=== PATIENT | female | born 2000 | race African-American/Black ===

== ENCOUNTER 2022-06-26 11:01 | Emergency (ER) | payer SELFPAY ==
[2022-06-26 11:50] LABS: Urine Blood Trace-intact (Negative); Urine Glucose Trace (Negative); Urine Protein Negative (Negative); Urine Specific Gravity >=1.030 (1.005-1.030)
--- NOTE | 2022-06-26 13:42 | RAD REPORT ---
EXAM DESCRIPTION: US - 1St Trimest Single 1St Fetus - 06/26/2022 1:25 pm CLINICAL HISTORY: lower abdomen pain Pelvic pain COMPARISON: No comparisons FINDINGS: A single gestational sac is seen within the uterus. The shape of the sac is within normal limits for gestational age. Within the sac is a single pole with crown-rump length of 8.5 cm, c orrelating to estimated gestational age of 13 weeks 6 days. Estimated date of delivery is 12/26/2022. Heart rate is 151. Anterior placenta. The maternal adnexa are within normal limits. Ovaries obscured by bowel gas. IMPRESSION: Single live early intrauterine gestation with estimated gestational age of 13 weeks 6 da ys, IWONA 12/26/2022. No unusual or unexpected finding.
[2022-06-26 14:04] LABS: Absolute Lymphocytes (CBC) 2.4 K/uL (0.7-4.9); Hematocrit 38.3 % (36.0-45.0); Lymphocytes % 24.9 % (15.3-44.8); MCV 84.2 fL (80-100); MPV 7.8 fL (7.6-11.3); RBC Red Blood Cell Count 4.55 M/uL (3.86-4.86)
[2022-06-26 14:11] LABS: Urine Mucus 1+ /HPF (None Seen); Urine RBC <5 /HPF (None Seen)
[2022-06-26 14:29] LABS: Potassium 3.6 mmol/L (3.5-5.1)
--- NOTE | 2022-06-26 14:43 | EDPHYS ---
Physician Documentation [facility] Name: Maria G Broussard Age: 21 yrs Sex: Female : 2000 Arrival Date: 06/26/2022 Time: 11:05 Bed 24 Private MD: PONCHO Physician Sukumar Kline HPI: 06/26 12:00 This 21 yrs old Black Female presents to ER via Ambulatory with complaints of Abdominal cp Pain, Unknown Weeks . 12:00 The patient presents with abdominal pain in the lower abdomen. The symptoms do not cp radiate. Associated signs and symptoms: Pertinent positives: vaginal discharge, vaginal pain, Pertinent negatives: dysuria, fever, vaginal bleeding. The symptoms are described as crampy. 12:00 Patient reports taking home test over the past weekend that was positive. cp Unsure how far along. Patient is . Unsure of LMP. Denies vaginal bleeding but reports lower abdomen, vaginal pain and brownish discharge. 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 - Social history:: Smoking status: Patient denies any tobacco usage or history of. Patient uses alcohol, occasionally. ROS: 12:05 Constitutional: Negative for body aches, chills, fever, poor PO intake. cp 12:05 Eyes: Negative for injury, pain, redness, and discharge. cp 12:05 ENT: Negative for drainage from ear(s), ear pain, sore throat, difficulty swallowing, difficulty handling secretions. 12:05 Cardiovascular: Negative for chest pain, edema, palpitations. 12:05 Respiratory: Negative for cough, shortness of breath, wheezing. 12:05 Abdomen/GI: Positive for abdominal pain, nausea, of the suprapubic area, Negative for vomiting, diarrhea, constipation. 12:05 Back: Negative for pain at rest, pain with movement. 12:05 : Positive for vaginal discharge, Negative for urinary symptoms, flank pain, vaginal bleeding. 12:05 All other systems are negative. Exam: 12:10 Constitutional: The patient appears in no acute distress, alert, awake, non-toxic, well cp developed, well nourished. 12:10 Head/Face: Normocephalic, atraumatic. cp 12:10 Eyes: Periorbital structures: appear normal, Conjunctiva: normal, no exudate, no cp injection, Sclera: no appreciated abnormality, Lids and lashes: appear normal, bilaterally. 12:10 ENT: External ear(s): are unremarkable, Nose: is normal, Mouth: Lips: moist, Oral cp mucosa: moist, Posterior pharynx: Airway: no evidence of obstruction, patent. 12:10 Chest/axilla: Inspection: normal. 12:10 Cardiovascular: Rate: tachycardic, Rhythm: regular, Edema: is not appreciated, JVD: is not appreciated. 12:10 Respiratory: the patient does not display signs of respiratory distress, Respirations: normal, no use of accessory muscles, no retractions, labored breathing, is not present, Breath sounds: are clear throughout, no decreased breath sounds, no stridor, no wheezing. 12:10 Abdomen/GI: Inspection: abdomen appears normal, Bowel sounds: active, all quadrants, Palpation: soft, in all quadrants, mild abdominal tenderness, in the suprapubic area and left lower quadrant, rebound tenderness, is not appreciated, voluntary guarding, is not appreciated, involuntary guarding, is not appreciated. 12:10 Back: pain, is absent, CVA tenderness, is absent. 14:41 : Pelvic Exam: The exam is refused by the patient/guardian. The risks and cp consequences are understood by the patient. Vital Signs: 11:31 BP 149 / 89; Pulse 103; Resp 18; Temp 98.4(TE); Pulse Ox 100% on R/A; Weight 72.57 kg tw2 (R); Height 5 ft. 3 in. (160.02 cm); Pain 8/10; 14:50 BP 116 / 72; Pulse 85; Resp 17; Pulse Ox 100% ; ll1 11:31 Body Mass Index 28.34 (72.57 kg, 160.02 cm) tw2 MDM: 13:00 Differential diagnosis: Ectopic , non-specific abd pain, Pelvic Inflammatory cp Disease, Pyelonephritis, Ureterolithiasis, urinary tract infection. 13:29 Patient medically screened. 14:42 Data reviewed: vital signs, nurses notes, lab test result(s), radiologic studies, cp ultrasound. 14:42 Counseling: I had a detailed discussion with the patient and/or guardian regarding: the cp historical points, exam findings, and any diagnostic results supporting the discharge/admit diagnosis, lab results, radiology results, the need for outpatient follow up, for definitive care, an OB/Gyne specialist, to return to the emergency department if symptoms worsen or persist or if there are any questions or concerns that arise at home. Response to treatment: the patient's symptoms have mildly improved after treatment, and as a result, I will discharge patient. Special discussion: Based on the patient's Hx, exam, and Dx evaluation, there is no indication for emergent surgery or inpatient Tx. It is understood by the patient/guardian that if the Sx's persist or worsen they need to return immediately for re-evaluation. 06/26 11:40 Order name: Urine Microscopic Only; Complete Time: 14:28 06/26 14:28 Interpretation: Reviewed. 06/26 11:51 Order name: Urine Dipstick-Ancillary; Complete Time: 12:52 EDMS 06/26 12:52 Interpretation: Normal except: UKET Trace; UBLD Trace-intact. 06/26 12:51 Order name: Abo/rh Typing; Complete Time: 14:32 06/26 14:37 Interpretation: Reviewed. 06/26 12:51 Order name: Basic Metabolic Panel; Complete Time: 14:32 06/26 14:32 Interpretation: Normal except: BUN 4. 06/26 12:51 Order name: CBC with Diff; Complete Time: 14:28 06/26 14:28 Interpretation: Reviewed. 06/26 12:51 Order name: Quantitative Hcg; Complete Time: 14:32 06/26 11:40 Order name: Urine Dipstick-Ancillary (obtain specimen); Complete Time: 13:27 06/26 11:40 Order name: Urine Test (obtain specimen); Complete Time: 13:27 06/26 12:51 Order name: IV Saline Lock; Complete Time: 13:27 06/26 12:51 Order name: Labs collected and sent; Complete Time: 13:27 06/26 13:25 Order name: 1St Trimest Single 1St Fetus; Complete Time: 13:52 EDMS 06/26 13:53 Interpretation: Report reviewed. cp 06/26 13:34 Order name: Urine --Ancillary (enter results); Complete Time: 13:52 eb 06/26 13:52 Interpretation: Reviewed. cp 06/26 14:39 Order name: ABO/RH no charge EDMS 06/26 12:51 Order name: NPO; Complete Time: 13:27 cp Administered Medications: No medications were administered Disposition Summary: 06/26/22 14:42 Discharge Ordered Location: Home cp Problem: new cp Symptoms: have improved cp Condition: Stable cp Diagnosis - Other specified related conditions, first trimester cp - Lower abdominal pain, unspecified cp Followup: cp - With: Jean Ramírez MD - When: 2 - 3 days - Reason: Recheck today's complaints Discharge Instructions: - Discharge Summary Sheet cp - Abdominal Pain During cp - Care cp - First Trimester of cp Forms: - Work release form sara - Medication Reconciliation Form cp - Thank You Letter cp - Antibiotic Education cp - Prescription Opioid Use cp Prescriptions: - prenat.vits,shilpa,[id number] Oral tablet - take 1 tablet by ORAL route once daily; 30 tablet; Refills: 0, Product cp Selection Permitted Signatures: Dispatcher [employer] EDMA Sukumar Lea PA PA cp Wise, Tara, RN RN tw2 Corrections: (The following items were deleted from the chart) 13:25 12:52 Transvaginal Ob+US.RAD.BRZ ordered. EDMA EDMA 06/27 02:33 06/26 12:00 Associated signs and symptoms: Pertinent positives: vaginal discharge, cp Pertinent negatives: dysuria, fever, vaginal bleeding, cp
--- NOTE | 2022-06-26 14:43 | ER ---
Nurse's Notes [facility] Name: Maria G Broussard Age: 21 yrs Sex: Female : 2000 Arrival Date: 06/26/2022 Time: 11:05 Bed 24 Private MD: Diagnosis: Other specified related conditions, first trimester;Lower abdominal pain, unspecified Presentation: 06/26 11:[address] her [address] to the restroom at this time. pt given urine specimen cup for tw2 collection at this time. 11:31 Chief complaint: Chief complaint: Patient states: over the weekend i found out that i tw2 am . but i am having very sharp sharp pains in my lower abdomen and in my vagina area. i am having a really bad thick brownish discharge with an odor. it looks like a mucous plug. no burning with urination. i feel this pressure like something is trying to come out. 11:31 Coronavirus screen: At this time, the client does not indicate any symptoms associated tw2 with coronavirus-19. Ebola Screen: Patient denies travel to an Ebola-affected area in the 21 days before illness onset. Initial Sepsis Screen: Does the patient meet any 2 criteria? HR > 90 bpm. No. Patient's initial sepsis screen is negative. Does the patient have a suspected source of infection? No. Patient's initial sepsis screen is negative. Risk Assessment: Do you want to hurt yourself or someone else? Patient reports no desire to harm self or others. Onset of symptoms was June 26, 2022. 11:31 Method Of Arrival: Ambulatory tw2 11:31 Acuity: PETER 3 tw2 Triage Assessment: 11:34 General: Appears in no apparent distress. Behavior is calm, cooperative, appropriate tw2 for age. Pain: Complains of pain in vagina. GI: Reports lower abdominal pain. GI: Reports nausea. : Reports vaginal pain. 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 - Social history:: Smoking status: Patient denies any tobacco usage or history of. Patient uses alcohol, occasionally. Screenin:26 Abuse screen: Denies threats or abuse. Nutritional screening: No deficits noted. ll1 Tuberculosis screening: No symptoms or risk factors identified. 14:51 Fall Risk IV access (20 points). Total Serna Fall Scale indicates No Risk (0-24 pts). ll1 Assessment: 13:26 Reassessment: No changes from previously documented assessment. Patient and/or family ll1 updated on plan of care and expected duration. Pain level reassessed. 14:20 Reassessment: No changes from previously documented assessment. Patient and/or family ll1 updated on plan of care and expected duration. Pain level reassessed. 14:50 GI: Bowel sounds present X 4 quads. Abd is soft and non tender X 4 quads. ll1 Vital Signs: 11:31 BP 149 / 89; Pulse 103; Resp 18; Temp 98.4(TE); Pulse Ox 100% on R/A; Weight 72.57 kg tw2 (R); Height 5 ft. 3 in. (160.02 cm); Pain 8/10; 14:50 BP 116 / 72; Pulse 85; Resp 17; Pulse Ox 100% ; ll1 11:31 Body Mass Index 28.34 (72.57 kg, 160.02 cm) tw2 ED Course: 11:05 Patient arrived in ED. rg4 11:27 Arm band placed on. tw2 11:34 Triage completed. tw2 11:36 Sukumar Lea PA is PHCP. cp 11:36 Sukumar Kline MD is Attending Physician. cp 13:25 1St Trimest Single 1St Fetus In Process Unspecified. EDMS 13:26 Carrie Valverde, LASHELL is Primary Nurse. ll1 13:26 Patient placed in an exam room, on a stretcher. ll1 13:39 Inserted saline lock: 22 gauge in left antecubital area, using aseptic technique. Blood ll1 collected. 14:41 Jean Ramírez MD is Referral Physician. cp 14:50 Patient has correct armband on for positive identification. Bed in low position. Call ll1 light in reach. Side rails up X 1. Cardiac monitoring not applicable on this patient. 14:50 No provider procedures requiring assistance completed. IV discontinued, intact, ll1 bleeding controlled, No redness/swelling at site. Pressure dressing applied. Administered Medications: No medications were administered Medication: 13:26 VIS not applicable for this client. ll1 Outcome: 14:42 Discharge ordered by . cp 14:51 Patient left the ED. ll1 14:51 Discharged to home ambulatory. ll1 14:51 Condition: stable 14:51 Discharge instructions given to patient, Instructed on discharge instructions, follow up and referral plans. medication usage, Demonstrated understanding of instructions, follow-up care, medications, Prescriptions given X 1. Signatures: Dispatcher [employer] EDMS Sukumar Lea PA PA cp Wise, Tara RN RN tw2 Christine Oliveros 4 Carrie Valverde RN RN ll1 Corrections: (The following items were deleted from the chart) 11:29 11:27 Chief complaint: tw2 tw2 11:34 11:27 Chief complaint: tw2 tw2
[2022-06-27 17:09] VITALS: BP 149/89; TEMP 98.4; O2SAT 100
== END 2022-06-26 14:51 | disposition home or self-care (01) ==
LOC: ER 11:01
DX: O26.891 Other specified pregnancy related conditions, first trimester (principal)
CPT/HCPCS: 36415; 76801; 80048; 81003; 81015; 81025; 84702; 85025; 86900; 86901; 99284

== ENCOUNTER 2024-01-25 07:08 | Emergency (ER) | payer SELFPAY ==
--- OUTSIDE RECORDS SUMMARY | 2024-01-25 07:13 | XMS REPORT | Continuity of Care Document ---
Author Name Unknown Address [address] [facility] [address] [place] [address] [facility] thconnect Address [address] [facility] [address] [place] [address] Care Team Providers Care Geophysical Laboratory Chief Name Role Phone Elizabeth Liu Primary Care Physicia n AUSTIN CERDA Attending Clinician Unavailable ELIZABETH BAEZ Attending Clinician Unavail able Elizabeth Liu Attending Clinician + [facility]ending [facility] Unava ilCYNDY Jameson Attending Clinician Unav rodríguez Wyatt MD, Koby Wood Attending Clinician [phone] Cyndy Mcneal MD Attending Clinician + Doctor Unassigned, Gross Attending Clinician U navailable Ultrasound, Hajawendy Attending Clinician Unavaila Godwin Casillas MD Attending Clinician [phone] GODWIN MARAVILLA Attending Clinician Unavailable GODWIN MARAVILLA Attending Clinician Unavailable SHERLEY VOGEL Attending Clinician Unavaildaryl alberts Provider, Deepali Temp Attending Clinician Eliza mindailaOswaldo Sanchez Attending Clinician + [phone] Sherley Vogel CNM Attending Clinician [phone] OSWALDO BOSTON Attending Clinician Unavailab Sierra Briscoe Attending Clinician +[phone] SIERRA MOE Attending Clinician Unavailable CYNDY MCNEAL Admitting Clinician Unav ailable Cyndy Mcneal MD Admitting Clinician + Payers Payer Name Policy Type Policy Number Effective Date Expirati on Date Source ENEIDA GORDON [id number] 2022 00:00:00 Problems Condition Name Condition Details Condition Category Status Onset Date Resolution Date Last Treatment Date Treating Clinician Comments Source Status post section Status post section Disease Active 3-11 00:00: 00 [facility] 39 weeks gestation of 39 weeks gestation of Disease Active 3-10 00:00: 00 [facility] Obesity (BMI 30-39.9) Obesity (BMI 30-39.9) Disease Active 3-10 00:00: 00 [facility] Positive GBS test Positive GBS test Disease Active 2-23 00:00: 00 Overview: Formattin g of this note might be different from the original. address pp [facility] Papanicola ou smear of cervix with atypical squamous cells cannot exclude high grade squamous intraepith elial lesion (ASC-H) Papanicola ou smear of cervix with atypical squamous cells cannot exclude high grade squamous intraepith elial lesion (ASC-H) Disease Active 2021-10 00:00: 00 Overview: Formattin g of this note might be different from the original. Repeat testing in 1 year. [facility] Supervisio n of high-risk with insufficie nt care Supervisio n of high-risk with insufficie nt care Disease Active 2021-10 00:00: 00 Overview: Formattin g of this note might be different from the original. Entered care at 21 weeks [facility] History of delivery, currently in second trimester History of delivery, currently in second trimester Disease Active 2021-10 00:00: 00 [facility] Previous delivery affecting Previous delivery affecting Disease Active 2021-10 00:00: 00 [facility] Multiparit y Multiparit y Disease Active 2021-10 00:00: 00 [facility] headache in second trimester headache in second trimester Disease Active 2021-10 00:00: 00 [facility] BMI 35.0-35.9, adult BMI 35.0-35.9, adult Disease Active 2021-10 00:00: 00 [facility] Vaginal discharge during in second trimester Vaginal discharge during in second trimester Disease Active 2021-10 00:00: 00 [facility] Allergies, Adverse Reactions, Alerts Allergy Name Allergy Type Status Severity Reaction(s) Onset Date Inactive Date Treating Clinician Comments Source NO KNOWN ALLERGIE S Drug Class Active [facility] Social History Social Habit Start Date Stop Date Quantity Comments Source ASSERTION 2022-04-04 00:00:00 [facility] to SARS-CoV-2 (event) 2022-12-16 00:00:00 2022-12-26 10:21:00 Not sure [facility] Alcohol intake 2022-10-29 00:00:00 2022-10-29 00:00:00 Ex-drinker (finding) [facility] Tobacco use and exposure 2022-08-09 00:00:00 2022-08-09 00:00:00 Smokeless tobacco non-user [facility] History of Social function 2022-08-09 00:00:00 2022-08-09 00:00:00 [facility] Sex Assigned At 2000 00:00:00 2000 00:00:00 [facility] Smoking Status Start Date Stop Date Source Never smoked tobacco [facility] Medications Ordered Medication Name Filled Medication Name Start Date Stop Date Current Medication? Ordering Clinician Indication Dosage Frequency Signature (SIG) Comments Components Source vitamin w/FA tablet 12-20 00:00: 00 Yes [id number] 1{tbl} Take 1 tablet by mouth in the morning. [facility] docusate 100 mg capsule 12-20 00:00: 00 Yes [id number] 200mg Take 2 capsules by mouth once daily as needed for Constipati on. [facility] ferrous sulfate 325 mg (65 mg iron) tablet 12-20 00:00: 00 Yes [id number] 325mg Take 1 tablet by mouth in the morning and 1 tablet in the evening. [facility] simethicone 80 mg chewable tablet 12-20 00:00: 00 Yes [id number] 80mg Take 1 tablet by mouth after meals and at bedtime. [facility] HYDROcodone -acetaminop hen 5-325 mg tablet 12-20 00:00: 00 12-28 04:59 :00 No [id number] 1{tbl} Take 1 tablet by mouth every 6 (six) hours as needed for Pain (scale 7-10) (Pain scale above 4) for up to 7 days. Do not exceed 3 grams of acetaminop hen in 24 hours. Indication s: acute pain [facility] ibuprofen (IBU) tablet 600 mg 12-20 00:00: 00 12-21 00:11 :06 No 600mg 600 mg, Oral, Q6H, First dose on Thu12/19/22 at 1800, Until Discontinu ed, Routine [facility] ondansetron (ZOFRAN (PF)) injection 4 mg 12-19 20:46: 12 12-21 00:11 :06 No 4mg 4 mg, Slow IV Push, Q8HPRN, Starting on Thu12/19/22 at 1446, Until 12/20/22 at 1811, Routine, Nausea and Vomiting (N/V) [facility] bisacodyL (DULCOLAX) suppository 10 mg 12-19 20:46: 12 12-21 00:11 :06 No 10mg 10 mg, Rectal, QDAILYPRN, Starting on Thu12/19/22 at 1446, Until 12/20/22 at 1811, Routine, Constipati on [facility] magnesium hydroxide (MILK OF MAGNESIA) 400 mg/5 mL suspension 30 mL 12-19 20:46: 12 12-21 00:11 :06 No 30mL 30 mL, Oral, QDAILYPRN, Starting on Thu12/19/22 at 1446, Until 12/20/22 at 1811, Routine, Constipati on [facility] lactated ringers IV infusion 1,000 mL 12-19 17:15: 00 12-20 15:44 :00 No 1000mL at 125 mL/hr, 1,000 mL, IV Infusion, CONTINUOUS , Starting on Thu12/19/22 at 1115, Until 12/20/22 at 0944, LAYLA [facility] ibuprofen (IBU) tablet 600 mg 12-19 17:13: 32 12-21 00:11 :06 No 600mg 600 mg, Oral, Q6HPRN, Starting on Thu12/19/22 at 1113, Until 12/20/22 at 1811, Routine, Pain (scale 1-3) [facility] oxytocin (PITOCIN) 30 units in NS 500 mL IV infusion 12-19 17:13: 13 12-21 00:11 :06 No 600mL/h 600 mL/hr, IV Infusion, PRN, For post delivery uterine atony., Starting on Thu12/19/[address] at 600 mL/hr for 1 hr then 150 mL/hr for 1 hr.
[facility] oxytocin (PITOCIN) 30 units in NS 500 mL IV infusion 12-19 17:13: 13 12-21 00:11 :06 No 300mL/h 300 mL/hr, IV Infusion, SEE-INSTRU CTIONS, Starting on Thu12/19/[address] at 300 mL/hr for 1 hr then 150 mL/hr for 1 hr. & nbsp; For post delivery uterotonic
[facility] lactated ringers IV infusion 1,000 mL 12-19 17:00: 00 12-19 17:14 :05 No 1000mL at 125 mL/hr, 1,000 mL, IV Infusion, ONCE, 1 dose, On Thu12/19/22 at 1100, Routine [facility] naloxone (NARCAN) injection 0.4 mg 12-19 16:57: 02 12-21 00:11 :06 No .4mg 0.4 mg, Slow IV Push, PRN - SEE WILMA NS, Starting on Thu12/19/22 at 1057, Until 12/20/22 at 1811, Routine, Analgesia Recovery, PACU [facility] nalbuphine (NUBAIN) injection 5 mg 12-19 16:57: 02 12-21 00:11 :06 No 5mg 5 mg, Intravenou s, PRN, 1 dose, Starting on Thu12/19/22 at 1057, Until 12/20/22 at 1811, Routine, itching, PACU [facility] ketorolac (TORADOL) injection 30 mg 12-19 16:57: 02 12-21 00:11 :06 No 30mg 30 mg, Slow IV Push, PRN, 1 dose, Starting on Thu12/19/22 at 1057, Until 12/20/22 at 1811, Routine, Pain (scale 4-6), PACU [facility] HYDROcodone -acetaminop hen (NORCO) 10-325 mg tablet 1 tablet 12-19 16:56: 57 12-21 00:11 :06 No 1{tbl} 1 tablet, Oral, Q6HPRN, Starting on Thu12/19/22 at 1056, Until 12/20/22 at 1811, Routine, Pain (scale 7-10) [facility] diphenhydrA MINE (BENADRYL) injection 25 mg 2022-12-19 16:56: 57 12-21 00:11 :06 No 25mg 25 mg, Slow IV Push, Q6HPRN, Starting on Thu12/19/22 at 1056, Until 12/20/22 at 1811, Routine, Itching [facility] diphenhydrA MINE (BENADRYL) tablet 25 mg 2022-0 10 16:56: 57 12-21 00:11 :06 No 25mg 25 mg, Oral, Q6HPRN, Starting on Thu12/19/22 at 1056, Until 12/20/22 at 1811, Routine, Sleep, Itching [facility] simethicone (GAS RELIEF (SIMETHICON E)) chewable tablet 160 mg 12-19 16:56: 57 12-21 00:11 :06 No 160mg 160 mg, Oral, PC+HSPRN, Starting on Thu12/19/22 at 1056, Until 12/20/22 at 1811, Routine, Gas [facility] docusate (COLACE) capsule 200 mg 12-19 16:56: 57 12-21 00:11 :06 No 200mg 200 mg, Oral, QDAILYPRN, Starting on Thu12/19/22 at 1056, Until 12/20/22 at 1811, Routine, Constipati on [facility] lactated ringers IV infusion 1,000 mL 12-19 16:56: 57 12-21 00:11 :06 No 1000mL at 125 mL/hr, 1,000 mL, IV Infusion, PRN, 1 dose, Starting on Thu12/19/22 at 1056, Until 12/20/22 at 1811, Routine [facility] acetaminoph en (TYLENOL) tablet 650 mg 12-19 12:45: 00 12-19 13:13 :00 No 650mg 650 mg, Oral, ONCE, 1 dose, On Thu12/19/22 at 0645, Routine [facility] lactated ringers IV infusion 1,000 mL 12-19 12:45: 00 12-19 16:56 :58 No 1000mL at 125 mL/hr, 1,000 mL, IV Infusion, CONTINUOUS , Starting on Thu12/19/22 at 0645, Until Thu12/19/22 at 1056, Routine [facility] ceFAZolin (ANCEF) 2,000 mg in NaCl 0.9% (NS) 100 mL MINI-BAG 12-19 12:31: 44 12-19 16:56 :58 No 2000mg 2,000 mg, IV Piggyback, O.R. HOLDING ONCE, Starting on Thu12/19/22 at 0631, Until Thu12/19/22 at 1056, Administer over 30 Minutes, 100 mL
Reas on for Anti-Infec tive: Surgical Prophylaxi s
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
Duration of therapy: within 24 hours of surgery [facility] sodium citrate-cit neeru acid (BICITRA) 500-334 mg/5 mL solution 30 mL 12-19 12:31: 44 12-19 15:24 :00 No 30mL 30 mL, Oral, PRE-PROCED URE ONCE, 1 dose, Starting on Thu12/19/22 at 0631, Until Thu12/19/22 at 0924, Routine, Surgery/Pr ocedure [facility] azithromyci n 500 mg tablet 12-03 00:00: 00 12-04 05:59 :00 No [id number] 1000mg Take 2 tablets by mouth once now for 1 dose. [facility] No known medications 11-10 10:58: 03 No No known medication s [facility] No known medications 10-29 11:11: 30 No No known medication s [facility] No known medications 10-14 09:54: 54 No No known medication s [facility] No known medications 2021-10 10:03: 09 No No known medication s [facility] azithromyci n 500 mg tablet 2021-10 00:00: 00 08-13 04:59 :00 No [id number] 1000mg Take 2 tablets by mouth once now for 1 dose. [facility] metroNIDAZO LE (FLAGYL) 500 mg tablet 2021-10 00:00: 00 08-19 05:59 :00 No [id number] 500mg Take 1 tablet by mouth every 12 (twelve) hours for 7 days. [facility] fluconazole (DIFLUCAN) 150 mg tablet 2021-10 00:00: 00 08-12 04:59 :00 No [id number] 9107 150mg Take 1 tablet by mouth once now for 1 dose. [facility] No known medications 2021-10 0 10:55: 40 No No known medication s [facility] Immunizations Ordered Immunization Name Filled Immunization Name Date Status Comments Source TDAP 2022-10-14 00:00:00 Completed [facility] TDAP 2022-10-14 00:00:00 Completed [facility] TDAP 2022-10-14 00:00:00 Completed [facility] TDAP 2022-10-14 00:00:00 Completed [facility] TDAP 2022-10-14 00:00:00 Completed [facility] TDAP 2022-10-14 00:00:00 Completed [facility] TDAP 2022-10-14 00:00:00 Completed [facility] TDAP 2022-10-14 00:00:00 Completed [facility] TDAP 2022-10-14 00:00:00 Completed [facility] TDAP 2022-10-14 00:00:00 Completed [facility] TDAP 2022-10-14 00:00:00 Completed [facility] TDAP 2022-10-14 00:00:00 Completed [facility] TDAP 2022-10-14 00:00:00 Completed [facility] TDAP 2022-10-14 00:00:00 Completed [facility] TDAP 2022-10-14 00:00:00 Completed [facility] TDAP 2022-10-14 00:00:00 Completed [facility] TDAP 2022-10-14 00:00:00 Completed [facility] TDAP 2022-10-14 00:00:00 Completed [facility] TDAP 2022-10-14 00:00:00 Completed [facility] TDAP 2022-10-14 00:00:00 Completed [facility] TDAP 2022-10-14 00:00:00 Completed [facility] TDAP 2022-10-14 00:00:00 Completed [facility] TDAP 2022-10-14 00:00:00 Completed [facility] TDAP 2022-10-14 00:00:00 Completed [facility] TDAP 2022-10-14 00:00:00 Completed [facility] TDAP 2022-10-14 00:00:00 Completed [facility] TDAP 2022-10-14 00:00:00 Completed [facility] TDAP 2022-10-14 00:00:00 Completed [facility] HEPATITIS A 2012-04-23 00:00:00 Completed [facility] HPV 2012-04-23 00:00:00 Completed [facility] Meningococcal Polysaccharide (groups A, C, Y and W-135) conjugate vaccine (MCV4P) 2012-04-23 00:00:00 Completed [facility] TDAP 2012-04-23 00:00:00 Completed [facility] HEPATITIS A 2012-04-23 00:00:00 Completed [facility] HPV 2012-04-23 00:00:00 Completed [facility] Meningococcal Polysaccharide (groups A, C, Y and W-135) conjugate vaccine (MCV4P) 2012-04-23 00:00:00 Completed [facility] TDAP 2012-04-23 00:00:00 Completed [facility] HEPATITIS A 2012-04-23 00:00:00 Completed [facility] HPV 2012-04-23 00:00:00 Completed [facility] Meningococcal Polysaccharide (groups A, C, Y and W-135) conjugate vaccine (MCV4P) 2012-04-23 00:00:00 Completed [facility] TDAP 2012-04-23 00:00:00 Completed [facility] HEPATITIS A 2012-04-23 00:00:00 Completed [facility] HPV 2012-04-23 00:00:00 Completed [facility] Meningococcal Polysaccharide (groups A, C, Y and W-135) conjugate vaccine (MCV4P) 2012-04-23 00:00:00 Completed [facility] TDAP 2012-04-23 00:00:00 Completed [facility] HEPATITIS A 2012-04-23 00:00:00 Completed [facility] HPV 2012-04-23 00:00:00 Completed [facility] Meningococcal Polysaccharide (groups A, C, Y and W-135) conjugate vaccine (MCV4P) 2012-04-23 00:00:00 Completed [facility] TDAP 2012-04-23 00:00:00 Completed [facility] HEPATITIS A 2012-04-23 00:00:00 Completed [facility] HPV 2012-04-23 00:00:00 Completed [facility] Meningococcal Polysaccharide (groups A, C, Y and W-135) conjugate vaccine (MCV4P) 2012-04-23 00:00:00 Completed [facility] TDAP 2012-04-23 00:00:00 Completed [facility] HEPATITIS A 2012-04-23 00:00:00 Completed [facility] HPV 2012-04-23 00:00:00 Completed [facility] Meningococcal Polysaccharide (groups A, C, Y and W-135) conjugate vaccine (MCV4P) 2012-04-23 00:00:00 Completed [facility] TDAP 2012-04-23 00:00:00 Completed [facility] HEPATITIS A 2012-04-23 00:00:00 Completed [facility] HPV 2012-04-23 00:00:00 Completed [facility] Meningococcal Polysaccharide (groups A, C, Y and W-135) conjugate vaccine (MCV4P) 2012-04-23 00:00:00 Completed [facility] TDAP 2012-04-23 00:00:00 Completed [facility] HEPATITIS A 2012-04-23 00:00:00 Completed [facility] HPV 2012-04-23 00:00:00 Completed [facility] Meningococcal Polysaccharide (groups A, C, Y and W-135) conjugate vaccine (MCV4P) 2012-04-23 00:00:00 Completed [facility] TDAP 2012-04-23 00:00:00 Completed [facility] HEPATITIS A 2012-04-23 00:00:00 Completed [facility] HPV 2012-04-23 00:00:00 Completed [facility] Meningococcal Polysaccharide (groups A, C, Y and W-135) conjugate vaccine (MCV4P) 2012-04-23 00:00:00 Completed [facility] TDAP 2012-04-23 00:00:00 Completed [facility] HEPATITIS A 2012-04-23 00:00:00 Completed [facility] HPV 2012-04-23 00:00:00 Completed [facility] Meningococcal Polysaccharide (groups A, C, Y and W-135) conjugate vaccine (MCV4P) 2012-04-23 00:00:00 Completed [facility] TDAP 2012-04-23 00:00:00 Completed [facility] HEPATITIS A 2012-04-23 00:00:00 Completed [facility] HPV 2012-04-23 00:00:00 Completed [facility] Meningococcal Polysaccharide (groups A, C, Y and W-135) conjugate vaccine (MCV4P) 2012-04-23 00:00:00 Completed [facility] TDAP 2012-04-23 00:00:00 Completed [facility] DTaP, Unspecified Formulation 2002-12-28 00:00:00 Completed [facility] MMR 2002-12-28 00:00:00 Completed [facility] IPV 2002-12-28 00:00:00 Completed [facility] DTaP, Unspecified Formulation 2002-12-28 00:00:00 Completed [facility] MMR 2002-12-28 00:00:00 Completed [facility] IPV 2002-12-28 00:00:00 Completed [facility] DTaP, Unspecified Formulation 2002-12-28 00:00:00 Completed [facility] MMR 2002-12-28 00:00:00 Completed [facility] IPV 2002-12-28 00:00:00 Completed [facility] DTaP, Unspecified Formulation 2002-12-28 00:00:00 Completed [facility] MMR 2002-12-28 00:00:00 Completed [facility] IPV 2002-12-28 00:00:00 Completed [facility] DTaP, Unspecified Formulation 2002-12-28 00:00:00 Completed [facility] MMR 2002-12-28 00:00:00 Completed [facility] IPV 2002-12-28 00:00:00 Completed [facility] DTaP, Unspecified Formulation 2002-12-28 00:00:00 Completed [facility] MMR 2002-12-28 00:00:00 Completed [facility] IPV 2002-12-28 00:00:00 Completed [facility] DTaP, Unspecified Formulation 2002-12-28 00:00:00 Completed [facility] MMR 2002-12-28 00:00:00 Completed [facility] IPV 2002-12-28 00:00:00 Completed [facility] DTaP, Unspecified Formulation 2002-12-28 00:00:00 Completed [facility] MMR 2002-12-28 00:00:00 Completed [facility] IPV 2002-12-28 00:00:00 Completed [facility] DTaP, Unspecified Formulation 2002-12-28 00:00:00 Completed [facility] MMR 2002-12-28 00:00:00 Completed [facility] IPV 2002-12-28 00:00:00 Completed [facility] DTaP, Unspecified Formulation 2002-12-28 00:00:00 Completed [facility] MMR 2002-12-28 00:00:00 Completed [facility] IPV 2002-12-28 00:00:00 Completed [facility] DTaP, Unspecified Formulation 2002-12-28 00:00:00 Completed [facility] MMR 2002-12-28 00:00:00 Completed [facility] IPV 2002-12-28 00:00:00 Completed [facility] DTaP, Unspecified Formulation 2002-12-28 00:00:00 Completed [facility] MMR 2002-12-28 00:00:00 Completed [facility] IPV 2002-12-28 00:00:00 Completed [facility] HEPATITIS A 2000-12-01 00:00:00 Completed [facility] Pneumococcal 7 Conjugate, PCV7 (Prevnar7) 2000-12-01 00:00:00 Completed [facility] HEPATITIS A 2000-12-01 00:00:00 Completed [facility] Pneumococcal 7 Conjugate, PCV7 (Prevnar7) 2000-12-01 00:00:00 Completed [facility] HEPATITIS A 2000-12-01 00:00:00 Completed [facility] Pneumococcal 7 Conjugate, PCV7 (Prevnar7) 2000-12-01 00:00:00 Completed [facility] HEPATITIS A 2000-12-01 00:00:00 Completed [facility] Pneumococcal 7 Conjugate, PCV7 (Prevnar7) 2000-12-01 00:00:00 Completed [facility] HEPATITIS A 2000-12-01 00:00:00 Completed [facility] Pneumococcal 7 Conjugate, PCV7 (Prevnar7) 2000-12-01 00:00:00 Completed [facility] HEPATITIS A 2000-12-01 00:00:00 Completed [facility] Pneumococcal 7 Conjugate, PCV7 (Prevnar7) 2000-12-01 00:00:00 Completed [facility] HEPATITIS A 2000-12-01 00:00:00 Completed [facility] Pneumococcal 7 Conjugate, PCV7 (Prevnar7) 2000-12-01 00:00:00 Completed [facility] HEPATITIS A 2000-12-01 00:00:00 Completed [facility] Pneumococcal 7 Conjugate, PCV7 (Prevnar7) 2000-12-01 00:00:00 Completed [facility] HEPATITIS A 2000-12-01 00:00:00 Completed [facility] Pneumococcal 7 Conjugate, PCV7 (Prevnar7) 2000-12-01 00:00:00 Completed [facility] HEPATITIS A 2000-12-01 00:00:00 Completed [facility] Pneumococcal 7 Conjugate, PCV7 (Prevnar7) 2000-12-01 00:00:00 Completed [facility] HEPATITIS A 2000-12-01 00:00:00 Completed [facility] Pneumococcal 7 Conjugate, PCV7 (Prevnar7) 2000-12-01 00:00:00 Completed [facility] HEPATITIS A 2000-12-01 00:00:00 Completed [facility] Pneumococcal 7 Conjugate, PCV7 (Prevnar7) 2000-12-01 00:00:00 Completed [facility] DTaP, Unspecified Formulation 2000-02-03 00:00:00 Completed [facility] Hib-HbOC 2000-02-03 00:00:00 Completed [facility] MMR 2000-02-03 00:00:00 Completed [facility] IPV 2000-02-03 00:00:00 Completed [facility] DTaP, Unspecified Formulation 2000-02-03 00:00:00 Completed [facility] Hib-HbOC 2000-02-03 00:00:00 Completed [facility] MMR 2000-02-03 00:00:00 Completed [facility] IPV 2000-02-03 00:00:00 Completed [facility] DTaP, Unspecified Formulation 2000-02-03 00:00:00 Completed [facility] Hib-HbOC 2000-02-03 00:00:00 Completed [facility] MMR 2000-02-03 00:00:00 Completed [facility] IPV 2000-02-03 00:00:00 Completed [facility] DTaP, Unspecified Formulation 2000-02-03 00:00:00 Completed [facility] Hib-HbOC 2000-02-03 00:00:00 Completed [facility] MMR 2000-02-03 00:00:00 Completed [facility] IPV 2000-02-03 00:00:00 Completed [facility] DTaP, Unspecified Formulation 2000-02-03 00:00:00 Completed [facility] Hib-HbOC 2000-02-03 00:00:00 Completed [facility] MMR 2000-02-03 00:00:00 Completed [facility] IPV 2000-02-03 00:00:00 Completed [facility] DTaP, Unspecified Formulation 2000-02-03 00:00:00 Completed [facility] Hib-HbOC 2000-02-03 00:00:00 Completed [facility] MMR 2000-02-03 00:00:00 Completed [facility] IPV 2000-02-03 00:00:00 Completed [facility] DTaP, Unspecified Formulation 2000-02-03 00:00:00 Completed [facility] Hib-HbOC 2000-02-03 00:00:00 Completed [facility] MMR 2000-02-03 00:00:00 Completed [facility] IPV 2000-02-03 00:00:00 Completed [facility] DTaP, Unspecified Formulation 2000-02-03 00:00:00 Completed [facility] Hib-HbOC 2000-02-03 00:00:00 Completed [facility] MMR 2000-02-03 00:00:00 Completed [facility] IPV 2000-02-03 00:00:00 Completed [facility] DTaP, Unspecified Formulation 2000-02-03 00:00:00 Completed [facility] Hib-HbOC 2000-02-03 00:00:00 Completed [facility] MMR 2000-02-03 00:00:00 Completed [facility] IPV 2000-02-03 00:00:00 Completed [facility] DTaP, Unspecified Formulation 2000-02-03 00:00:00 Completed [facility] Hib-HbOC 2000-02-03 00:00:00 Completed [facility] MMR 2000-02-03 00:00:00 Completed [facility] IPV 2000-02-03 00:00:00 Completed [facility] DTaP, Unspecified Formulation 2000-02-03 00:00:00 Completed [facility] Hib-HbOC 2000-02-03 00:00:00 Completed [facility] MMR 2000-02-03 00:00:00 Completed [facility] IPV 2000-02-03 00:00:00 Completed [facility] DTaP, Unspecified Formulation 2000-02-03 00:00:00 Completed [facility] Hib-HbOC 2000-02-03 00:00:00 Completed [facility] MMR 2000-02-03 00:00:00 Completed [facility] IPV 2000-02-03 00:00:00 Completed [facility] DTaP, Unspecified Formulation 1999-04-18 00:00:00 Completed [facility] Hep B, Adol or Pedi Dosage 1999-04-18 00:00:00 Completed [facility] Hib-HbOC 1999-04-18 00:00:00 Completed [facility] DTaP, Unspecified Formulation 1999-04-18 00:00:00 Completed [facility] Hep B, Adol or Pedi Dosage 1999-04-18 00:00:00 Completed [facility] Hib-HbOC 1999-04-18 00:00:00 Completed [facility] DTaP, Unspecified Formulation 1999-04-18 00:00:00 Completed [facility] Hep B, Adol or Pedi Dosage 1999-04-18 00:00:00 Completed [facility] Hib-HbOC 1999-04-18 00:00:00 Completed [facility] DTaP, Unspecified Formulation 1999-04-18 00:00:00 Completed [facility] Hep B, Adol or Pedi Dosage 1999-04-18 00:00:00 Completed [facility] Hib-HbOC 1999-04-18 00:00:00 Completed [facility] DTaP, Unspecified Formulation 1999-04-18 00:00:00 Completed [facility] Hep B, Adol or Pedi Dosage 1999-04-18 00:00:00 Completed [facility] Hib-HbOC 1999-04-18 00:00:00 Completed [facility] DTaP, Unspecified Formulation 1999-04-18 00:00:00 Completed [facility] Hep B, Adol or Pedi Dosage 1999-04-18 00:00:00 Completed [facility] Hib-HbOC 1999-04-18 00:00:00 Completed [facility] DTaP, Unspecified Formulation 1999-04-18 00:00:00 Completed [facility] Hep B, Adol or Pedi Dosage 1999-04-18 00:00:00 Completed [facility] Hib-HbOC 1999-04-18 00:00:00 Completed [facility] DTaP, Unspecified Formulation 1999-04-18 00:00:00 Completed [facility] Hep B, Adol or Pedi Dosage 1999-04-18 00:00:00 Completed [facility] Hib-HbOC 1999-04-18 00:00:00 Completed [facility] DTaP, Unspecified Formulation 1999-04-18 00:00:00 Completed [facility] Hep B, Adol or Pedi Dosage 1999-04-18 00:00:00 Completed [facility] Hib-HbOC 1999-04-18 00:00:00 Completed [facility] DTaP, Unspecified Formulation 1999-04-18 00:00:00 Completed [facility] Hep B, Adol or Pedi Dosage 1999-04-18 00:00:00 Completed [facility] Hib-HbOC 1999-04-18 00:00:00 Completed [facility] DTaP, Unspecified Formulation 1999-04-18 00:00:00 Completed [facility] Hep B, Adol or Pedi Dosage 1999-04-18 00:00:00 Completed [facility] Hib-HbOC 1999-04-18 00:00:00 Completed [facility] DTaP, Unspecified Formulation 1999-04-18 00:00:00 Completed [facility] Hep B, Adol or Pedi Dosage 1999-04-18 00:00:00 Completed [facility] Hib-HbOC 1999-04-18 00:00:00 Completed [facility] DTaP, Unspecified Formulation 1999-02-12 00:00:00 Completed [facility] Hib-HbOC 1999-02-12 00:00:00 Completed [facility] IPV 1999-02-12 00:00:00 Completed [facility] DTaP, Unspecified Formulation 1999-02-12 00:00:00 Completed [facility] Hib-HbOC 1999-02-12 00:00:00 Completed [facility] IPV 1999-02-12 00:00:00 Completed [facility] DTaP, Unspecified Formulation 1999-02-12 00:00:00 Completed [facility] Hib-HbOC 1999-02-12 00:00:00 Completed [facility] IPV 1999-02-12 00:00:00 Completed [facility] DTaP, Unspecified Formulation 1999-02-12 00:00:00 Completed [facility] Hib-HbOC 1999-02-12 00:00:00 Completed [facility] IPV 1999-02-12 00:00:00 Completed [facility] DTaP, Unspecified Formulation 1999-02-12 00:00:00 Completed [facility] Hib-HbOC 1999-02-12 00:00:00 Completed [facility] IPV 1999-02-12 00:00:00 Completed [facility] DTaP, Unspecified Formulation 1999-02-12 00:00:00 Completed [facility] Hib-HbOC 1999-02-12 00:00:00 Completed [facility] IPV 1999-02-12 00:00:00 Completed [facility] DTaP, Unspecified Formulation 1999-02-12 00:00:00 Completed [facility] Hib-HbOC 1999-02-12 00:00:00 Completed [facility] IPV 1999-02-12 00:00:00 Completed [facility] DTaP, Unspecified Formulation 1999-02-12 00:00:00 Completed [facility] Hib-HbOC 1999-02-12 00:00:00 Completed [facility] IPV 1999-02-12 00:00:00 Completed [facility] DTaP, Unspecified Formulation 1999-02-12 00:00:00 Completed [facility] Hib-HbOC 1999-02-12 00:00:00 Completed [facility] IPV 1999-02-12 00:00:00 Completed [facility] DTaP, Unspecified Formulation 1999-02-12 00:00:00 Completed [facility] Hib-HbOC 1999-02-12 00:00:00 Completed [facility] IPV 1999-02-12 00:00:00 Completed [facility] DTaP, Unspecified Formulation 1999-02-12 00:00:00 Completed [facility] Hib-HbOC 1999-02-12 00:00:00 Completed [facility] IPV 1999-02-12 00:00:00 Completed [facility] DTaP, Unspecified Formulation 1999-02-12 00:00:00 Completed [facility] Hib-HbOC 1999-02-12 00:00:00 Completed [facility] IPV 1999-02-12 00:00:00 Completed [facility] DTaP, Unspecified Formulation 1998 00:00:00 Completed [facility] Hep B, Adol or Pedi Dosage 1998 00:00:00 Completed [facility] Hib-HbOC 1998 00:00:00 Completed [facility] IPV 1998 00:00:00 Completed [facility] DTaP, Unspecified Formulation 1998 00:00:00 Completed [facility] Hep B, Adol or Pedi Dosage 1998 00:00:00 Completed [facility] Hib-HbOC 1998 00:00:00 Completed [facility] IPV 1998 00:00:00 Completed [facility] DTaP, Unspecified Formulation 1998 00:00:00 Completed [facility] Hep B, Adol or Pedi Dosage 1998 00:00:00 Completed [facility] Hib-HbOC 1998 00:00:00 Completed [facility] IPV 1998 00:00:00 Completed [facility] DTaP, Unspecified Formulation 1998 00:00:00 Completed [facility] Hep B, Adol or Pedi Dosage 1998 00:00:00 Completed [facility] Hib-HbOC 1998 00:00:00 Completed [facility] IPV 1998 00:00:00 Completed [facility] DTaP, Unspecified Formulation 1998 00:00:00 Completed [facility] Hep B, Adol or Pedi Dosage 1998 00:00:00 Completed [facility] Hib-HbOC 1998 00:00:00 Completed [facility] IPV 1998 00:00:00 Completed [facility] DTaP, Unspecified Formulation 1998 00:00:00 Completed [facility] Hep B, Adol or Pedi Dosage 1998 00:00:00 Completed [facility] Hib-HbOC 1998 00:00:00 Completed [facility] IPV 1998 00:00:00 Completed [facility] DTaP, Unspecified Formulation 1998 00:00:00 Completed [facility] Hep B, Adol or Pedi Dosage 1998 00:00:00 Completed [facility] Hib-HbOC 1998 00:00:00 Completed [facility] IPV 1998 00:00:00 Completed [facility] DTaP, Unspecified Formulation 1998 00:00:00 Completed [facility] Hep B, Adol or Pedi Dosage 1998 00:00:00 Completed [facility] Hib-HbOC 1998 00:00:00 Completed [facility] IPV 1998 00:00:00 Completed [facility] DTaP, Unspecified Formulation 1998 00:00:00 Completed [facility] Hep B, Adol or Pedi Dosage 1998 00:00:00 Completed [facility] Hib-HbOC 1998 00:00:00 Completed [facility] IPV 1998 00:00:00 Completed [facility] DTaP, Unspecified Formulation 1998 00:00:00 Completed [facility] Hep B, Adol or Pedi Dosage 1998 00:00:00 Completed [facility] Hib-HbOC 1998 00:00:00 Completed [facility] IPV 1998 00:00:00 Completed [facility] DTaP, Unspecified Formulation 1998 00:00:00 Completed [facility] Hep B, Adol or Pedi Dosage 1998 00:00:00 Completed [facility] Hib-HbOC 1998 00:00:00 Completed [facility] IPV 1998 00:00:00 Completed [facility] DTaP, Unspecified Formulation 1998 00:00:00 Completed [facility] Hep B, Adol or Pedi Dosage 1998 00:00:00 Completed [facility] Hib-HbOC 1998 00:00:00 Completed [facility] IPV 1998 00:00:00 Completed [facility] Hep B, Adol or Pedi Dosage 1998 00:00:00 Completed [facility] Hep B, Adol or Pedi Dosage 1998 00:00:00 Completed [facility] Hep B, Adol or Pedi Dosage 1998 00:00:00 Completed [facility] Hep B, Adol or Pedi Dosage 1998 00:00:00 Completed [facility] Hep B, Adol or Pedi Dosage 1998 00:00:00 Completed [facility] Hep B, Adol or Pedi Dosage 1998 00:00:00 Completed [facility] Hep B, Adol or Pedi Dosage 1998 00:00:00 Completed [facility] Hep B, Adol or Pedi Dosage 1998 00:00:00 Completed [facility] Hep B, Adol or Pedi Dosage 1998 00:00:00 Completed [facility] Hep B, Adol or Pedi Dosage 1998 00:00:00 Completed [facility] Hep B, Adol or Pedi Dosage 1998 00:00:00 Completed [facility] Hep B, Adol or Pedi Dosage 1998 00:00:00 Completed [facility] TDAP Unknown Completed [facility] DTaP, Unspecified Formulation Unknown Completed [facility] DTaP, Unspecified Formulation Unknown Completed [facility] DTaP, Unspecified Formulation Unknown Completed [facility] DTaP, Unspecified Formulation Unknown Completed [facility] DTaP, Unspecified Formulation Unknown Completed [facility] HEPATITIS A Unknown Completed [facility] HEPATITIS A Unknown Completed [facility] Hep B, Adol or Pedi Dosage Unknown Completed [facility] Hep B, Adol or Pedi Dosage Unknown Completed [facility] Hep B, Adol or Pedi Dosage Unknown Completed [facility] Hib-HbOC Unknown Completed [facility] Hib-HbOC Unknown Completed [facility] Hib-HbOC Unknown Completed [facility] Hib-HbOC Unknown Completed [facility] HPV Unknown Completed [facility] Meningococcal Polysaccharide (groups A, C, Y and W-135) conjugate vaccine (MCV4P) Unknown Completed [facility] MMR Unknown Completed [facility] MMR Unknown Completed [facility] Pneumococcal 7 Conjugate, PCV7 (Prevnar7) Unknown Completed [facility] IPV Unknown Completed [facility] IPV Unknown Completed [facility] IPV Unknown Completed [facility] IPV Unknown Completed [facility] TDAP Unknown Completed [facility] TDAP Unknown Completed [facility] DTaP, Unspecified Formulation Unknown Completed [facility] DTaP, Unspecified Formulation Unknown Completed [facility] DTaP, Unspecified Formulation Unknown Completed [facility] DTaP, Unspecified Formulation Unknown Completed [facility] DTaP, Unspecified Formulation Unknown Completed [facility] HEPATITIS A Unknown Completed [facility] HEPATITIS A Unknown Completed [facility] Hep B, Adol or Pedi Dosage Unknown Completed [facility] Hep B, Adol or Pedi Dosage Unknown Completed [facility] Hep B, Adol or Pedi Dosage Unknown Completed [facility] Hib-HbOC Unknown Completed [facility] Hib-HbOC Unknown Completed [facility] Hib-HbOC Unknown Completed [facility] Hib-HbOC Unknown Completed [facility] HPV Unknown Completed [facility] Meningococcal Polysaccharide (groups A, C, Y and W-135) conjugate vaccine (MCV4P) Unknown Completed [facility] MMR Unknown Completed [facility] MMR Unknown Completed [facility] Pneumococcal 7 Conjugate, PCV7 (Prevnar7) Unknown Completed [facility] IPV Unknown Completed [facility] IPV Unknown Completed [facility] IPV Unknown Completed [facility] IPV Unknown Completed [facility] TDAP Unknown Completed [facility] Vital Signs Vital Name Observation Time Observation Value Comments S ource Systolic blood pressure 2022-12-26 15:21:00 139 mm[Hg] [facility] Diastolic blood pressure 2022-12-26 15:21:00 85 mm[Hg] [facility] Heart rate 2022-12-26 15:21:00 71 /min [facility] Body temperature 2022-12-26 15:21:00 36.28 Suad [facility] Respiratory rate 2022-12-26 15:21:00 17 /min [facility] Body height 2022-12-26 15:21:00 154.9 cm [facility] Body weight 2022-12-26 15:21:00 80.06 kg [facility] BMI 2022-12-26 15:21:00 33.35 kg/m2 [facility] Systolic blood pressure 2022-12-20 10:02:00 113 mm[Hg] [facility] Diastolic blood pressure 2022-12-20 10:02:00 77 mm[Hg] [facility] Heart rate 2022-12-20 10:02:00 92 /min [facility] Body temperature 2022-12-20 10:02:00 36.61 Suad [facility] Respiratory rate 2022-12-20 10:02:00 20 /min [facility] Oxygen saturation in Arterial blood by Pulse oximetry 2022-12-20 10:02:00 98 /min [facility] Body height 2022-12-19 12:30:00 154.9 cm [facility] Body weight 2022-12-19 12:30:00 86.637 kg [facility] BMI 2022-12-19 12:30:00 36.09 kg/m2 [facility] Heart rate 2022-12-19 15:00:00 93 /min [facility] Oxygen saturation in Arterial blood by Pulse oximetry 2022-12-19 15:00:00 100 /min [facility] Respiratory rate 2022-12-19 14:00:00 18 /min [facility] Systolic blood pressure 2022-12-19 13:15:00 104 mm[Hg] [facility] Diastolic blood pressure 2022-12-19 13:15:00 76 mm[Hg] [facility] Body height 2022-12-19 12:30:00 154.9 cm [facility] Body weight 2022-12-19 12:30:00 86.637 kg [facility] BMI 2022-12-19 12:30:00 36.09 kg/m2 [facility] Systolic blood pressure 2022-12-17 15:54:00 122 mm[Hg] [facility] Diastolic blood pressure 2022-12-17 15:54:00 81 mm[Hg] [facility] Heart rate 2022-12-17 15:54:00 99 /min [facility] Body temperature 2022-12-17 15:54:00 36.44 Suad [facility] Respiratory rate 2022-12-17 15:54:00 18 /min [facility] Body height 2022-12-17 15:54:00 154.9 cm [facility] Body weight 2022-12-17 15:54:00 87.454 kg [facility] BMI 2022-12-17 15:54:00 36.43 kg/m2 [facility] Systolic blood pressure 2022-12-08 15:28:00 120 mm[Hg] [facility] Diastolic blood pressure 2022-12-08 15:28:00 73 mm[Hg] [facility] Heart rate 2022-12-08 15:28:00 81 /min [facility] Body temperature 2022-12-08 15:28:00 35.5 Suad [facility] Respiratory rate 2022-12-08 15:28:00 18 /min [facility] Body height 2022-12-08 15:28:00 154.9 cm [facility] Body weight 2022-12-08 15:28:00 86.138 kg [facility] BMI 2022-12-08 15:28:00 35.88 kg/m2 [facility] Systolic blood pressure 2022-12-01 15:54:00 127 mm[Hg] [facility] Diastolic blood pressure 2022-12-01 15:54:00 70 mm[Hg] [facility] Body temperature 2022-12-01 15:54:00 35.44 Suad [facility] Respiratory rate 2022-12-01 15:54:00 18 /min [facility] Body height 2022-12-01 15:54:00 154.9 cm [facility] Body weight 2022-12-01 15:54:00 86.546 kg [facility] BMI 2022-12-01 15:54:00 36.05 kg/m2 [facility] Systolic blood pressure 2022-11-24 15:53:00 120 mm[Hg] [facility] Diastolic blood pressure 2022-11-24 15:53:00 81 mm[Hg] [facility] Heart rate 2022-11-24 15:53:00 107 /min [facility] Body temperature 2022-11-24 15:53:00 35.89 Suad [facility] Respiratory rate 2022-11-24 15:53:00 18 /min [facility] Body height 2022-11-24 15:53:00 154.9 cm [facility] Body weight 2022-11-24 15:53:00 86.138 kg [facility] BMI 2022-11-24 15:53:00 35.88 kg/m2 [facility] Systolic blood pressure 2022-11-10 16:41:00 132 mm[Hg] [facility] Diastolic blood pressure 2022-11-10 16:41:00 77 mm[Hg] [facility] Heart rate 2022-11-10 16:41:00 91 /min [facility] Body temperature 2022-11-10 16:41:00 36.06 Suad [facility] Respiratory rate 2022-11-10 16:41:00 18 /min [facility] Body height 2022-11-10 16:41:00 154.9 cm [facility] Body weight 2022-11-10 16:41:00 86.365 kg [facility] BMI 2022-11-10 16:41:00 35.98 kg/m2 [facility] Systolic blood pressure 2022-10-29 15:31:00 126 mm[Hg] [facility] Diastolic blood pressure 2022-10-29 15:31:00 76 mm[Hg] [facility] Heart rate 2022-10-29 15:31:00 100 /min [facility] Body temperature 2022-10-29 15:31:00 36.22 Suad [facility] Respiratory rate 2022-10-29 15:31:00 18 /min [facility] Body height 2022-10-29 15:31:00 154.9 cm [facility] Body weight 2022-10-29 15:31:00 87.227 kg [facility] BMI 2022-10-29 15:31:00 36.33 kg/m2 [facility] Systolic blood pressure 2022-10-14 15:01:00 114 mm[Hg] [facility] Diastolic blood pressure 2022-10-14 15:01:00 76 mm[Hg] [facility] Heart rate 2022-10-14 15:01:00 89 /min [facility] Body temperature 2022-10-14 15:01:00 36.17 Suad [facility] Respiratory rate 2022-10-14 15:01:00 18 /min [facility] Body height 2022-10-14 15:01:00 154.9 cm [facility] Body weight 2022-10-14 15:01:00 84.454 kg [facility] BMI 2022-10-14 15:01:00 35.18 kg/m2 [facility] Body weight 2022-09-03 15:19:00 86.047 kg [facility] BMI 2022-09-03 15:19:00 35.84 kg/m2 [facility] Systolic blood pressure 2022-09-03 15:19:00 127 mm[Hg] [facility] Diastolic blood pressure 2022-09-03 15:19:00 76 mm[Hg] [facility] Heart rate 2022-09-03 15:19:00 89 /min [facility] Body temperature 2022-09-03 15:19:00 36.61 Suad [facility] Respiratory rate 2022-09-03 15:19:00 17 /min [facility] Body height 2022-09-03 15:19:00 154.9 cm [facility] Systolic blood pressure 2022-08-09 14:42:00 120 mm[Hg] [facility] Diastolic blood pressure 2022-08-09 14:42:00 85 mm[Hg] [facility] Heart rate 2022-08-09 14:42:00 97 /min [facility] Body temperature 2022-08-09 14:42:00 37 Suad [facility] Respiratory rate 2022-08-09 14:42:00 20 /min [facility] Body height 2022-08-09 14:42:00 154.9 cm [facility] Body weight 2022-08-09 14:42:00 84.641 kg [facility] BMI 2022-08-09 14:42:00 35.26 kg/m2 [facility] Procedures Procedure Date / Time Performed Performing Clinic[facility] n Source CBC WITH DIFF 2022-12-20 10:16:00 Lois Ivy [facility] CBC WITH DIFF 2022-12-20 10:16:00 Lois Ivy [facility] VENOUS CORD GAS 2022-12-19 16:22:00 Miroslava Reyes [facility] VENOUS CORD GAS 2022-12-19 16:22:00 Miroslava Ryees [facility] SECTION 2022-12-19 15:15:00 Cyndy Whitman [facility] CBC WITH DIFF 2022-12-19 12:41:00 Miroslava Reyes [facility] HEPATITIS B SURFACE ANTIGEN 2022-12-19 12:41:00 Miroslava Reyes [facility] HB ABO GROUPING 2022-12-19 12:41:00 Miroslava Reyes [facility] HIV 1/2 AG-AB WITH REFLEX 2022-12-19 12:41:00 Miroslava Reyes [facility] SYPHILIS IGG/IGM 2022-12-19 12:41:00 Miroslava Reyes [facility] CBC WITH DIFF 2022-12-19 12:41:00 Miroslava Reyes [facility] HEPATITIS B SURFACE ANTIGEN 2022-12-19 12:41:00 Miroslava Reyes [facility] HB ABO GROUPING 2022-12-19 12:41:00 Miroslava Reyes [facility] HIV 1/2 AG-AB WITH REFLEX 2022-12-19 12:41:00 Miroslava Reyes [facility] SYPHILIS IGG/IGM 2022-12-19 12:41:00 Miroslava Reyes [facility] POCT URINALYSIS 2022-12-17 17:42:00 Elizabeth Baez [facility] POCT URINALYSIS 2022-12-01 15:56:00 Elizabeth Baez [facility] POCT URINALYSIS 2022-11-24 15:58:00 Elizabeth Baez [facility] POCT URINALYSIS 2022-11-10 16:47:00 Elizabeth Baez [facility] EXTERNAL PROVIDER RECORDS 2022-10-31 06:01:00 Doctor Unassigned, Gross [facility] TDAP VACCINE, >11 YRS, IM 2022-10-14 15:22:28 Elizabeth Baez [facility] POCT URINALYSIS 2022-10-14 15:03:00 Elizabeth Baez [facility] GC & CHLAMYDIA AMPLIFIED ASSAY 2022-09-03 17:12:00 Sherley Vogel [facility] POCT URINALYSIS W/O SPECIFIC GRAVITY 2022-09-03 00:00:00 Sherley Vogel [facility] POCT TEST 2022-08-09 14:40:00 Aniyah Moe [facility] POCT URINALYSIS W/O SPECIFIC GRAVITY 2022-08-09 00:00:00 Sierra Moe [facility] Encounters Start Date/Time End Date/Time Encounter Type Admission Type Attending [facility] Care Facility Care Department Encounter ID Source 2023-05-11 10:00:00 2023-05-11 10:00:00 Outpatient AUSTIN BRADLEY [facility] [id number] [facility] 2023-03-25 09:30:00 2023-03-25 09:30:00 Outpatient ELIZABETH VALLEJO [facility] [id number] [facility] 2023-01-28 15:00:00 2023-01-28 15:00:00 Outpatient ELIZABETH VALLEJO [facility] [id number] [facility] 2023-01-01 00:00:00 2023-01-01 00:00:00 Refill Elizabeth Baez [facility] 1.2.840.114 350.1.13.10 4.2.7.2.686 [id number] 107 [id number] [facility] 2022-12-26 10:30:00 2022-12-26 10:45:00 Nurse Visit Visit, Ang-Rmchp Nurse Elizabeth Baez [facility] 1.840.114 350.1.13.10 4.2.7.2.686 [id number] [facility] 2022-12-26 10:30:00 2022-12-26 10:30:00 Outpatient R ELIZABETH BAEZ [facility] [id number] [facility] 2022-12-19 06:00:00 2022-12-20 16:06:00 Inpatient P ESTER Molina [facility] [id number] [facility] 2022-12-19 06:00:00 2022-12-20 16:06:00 Hospital Encounter Koby Wyatt [facility] 1.840.114 350.1.13.10 4.2.7.2.686 [id number] [facility] 2022-12-19 07:30:00 2022-12-19 09:12:00 Surgery [facility] 1.840.114 350.1.13.10 4.2.7.2.686 [id number] [facility] 2022-12-17 09:45:00 2022-12-17 10:14:40 Outpatient R ELIZABETH BAEZ [facility] [id number] [facility] 2022-12-17 09:45:00 2022-12-17 10:14:40 Routine Visit Elizabeth Baez [facility] 1.840.114 350.1.13.10 4.2.7.2.686 [id number] [facility] 2022-12-15 09:45:00 2022-12-15 09:45:00 Outpatient R ELIZABETH BAEZ [facility] [id number] [facility] 2022-12-08 09:30:00 2022-12-08 09:48:26 Outpatient R ELIZABETH BAEZ [facility] [id number] [facility] 2022-12-08 09:30:00 2022-12-08 09:48:26 Routine Visit Elizabeth Baez [facility] [employer] 1.2.840.114 350.1.13.10 4.2.7.2.686 [id number] [facility] 2022-12-03 00:00:00 2022-12-03 00:00:00 Telephone Elizabeth Baez [facility] 1.2.840.114 350.1.13.10 4.2.7.2.686 [id number] [facility] 2022-12-03 00:00:00 2022-12-03 00:00:00 Telephone Elizabeth Baez [facility] 1.2.840.114 350.1.13.10 4.2.7.2.686 [id number] [facility] 2022-12-03 00:00:00 2022-12-03 00:00:00 Patient Secure Msg Elizabeth Baez [facility] 1.2.840.114 350.1.13.10 4.2.7.2.686 [id number] [facility] 2022-12-01 09:45:00 2022-12-01 10:27:50 Outpatient R ELIZABETH BAEZ [facility] [id number] [facility] 2022-12-01 09:45:00 2022-12-01 10:27:50 Routine Visit Elizabeth Baez [facility] 1.2.840.114 350.1.13.10 4.2.7.2.686 [id number] [facility] 2022-11-24 09:45:00 2022-11-24 10:14:07 Outpatient R ELIZABETH BAEZ [facility] [id number] [facility] 2022-11-24 09:45:00 2022-11-24 10:14:07 Routine Visit Elizabeth Baez [facility] 1.840.114 350.1.13.10 4.2.7.2.686 [id number] [facility] 2022-11-20 15:45:00 2022-11-20 15:45:00 Outpatient R ELIZABETH BAEZ [facility] [id number] [facility] 2022-11-19 00:00:00 2022-11-19 00:00:00 Telephone Elizabeth Baez [facility] 1.2840.114 350.1.13.10 4.2.7.2.686 [id number] [facility] 2022-11-19 00:00:00 2022-11-19 00:00:00 Patient Secure Msg Elizabeth Baez [facility] 1.2840.114 350.1.13.10 4.2.7.2.686 [id number] [facility] 2022-11-10 10:45:00 2022-11-10 11:00:47 Outpatient R ELIZABETH BAEZ [facility] [id number] [facility] 2022-11-10 10:45:00 2022-11-10 11:00:47 Routine Visit Elizabeth Baez [facility] 1.2.840.114 350.1.13.10 4.2.7.2.686 [id number] [facility] 2022-10-31 00:00:00 2022-10-31 00:00:00 Orders Only Doctor Unassigned, Gross [facility] 1.2.840.114 350.1.13.10 4.2.7.2.686 [id number] [facility] 2022-10-29 10:45:00 2022-10-29 10:45:00 Routine Visit Elizabeth Baez [facility] 1.2.840.114 350.1.13.10 4.2.7.2.686 [id number] [facility] 2022-10-29 10:45:00 2022-10-29 10:43:04 Outpatient R ELIZABETH BAEZ [facility] [id number] [facility] 2022-10-14 09:00:00 2022-10-14 09:52:07 Outpatient R ELIZABETH BAEZ [facility] [id number] [facility] 2022-10-14 09:00:00 2022-10-14 09:52:07 Routine Visit Elizabeth Baez [facility] 1.2.840.114 350.1.13.10 4.2.7.2.686 [id number] [facility] 2022-10-07 00:00:00 2022-10-07 00:00:00 Telephone Elizabeth Baez [facility] 1.2.840.114 350.1.13.10 4.2.7.2.686 [id number] [facility] 2022-10-01 09:45:00 2022-10-01 09:45:00 Outpatient ELIZABETH VALLEJO [facility] [id number] [facility] 2022-09-26 09:45:00 2022-09-26 11:00:00 [place] [facility] Visit Ultrasound, Godwin Parker [facility] 1.840.114 350.1.13.10 4.2.7.2.686 [id number] [facility] 2022-09-26 09:45:00 2022-09-26 09:45:00 Outpatient GODWIN LOPEZ [facility] [id number] [facility] 2022-09-26 00:00:00 2022-09-26 00:00:00 Abstract Elizabeth Baez [facility] 1.840.114 350.1.13.10 4.2.7.2.686 [id number] [facility] 2022-09-03 09:00:00 2022-09-03 10:17:57 Outpatient SHERLEY BAKER [facility] [id number] [facility] 2022-09-03 09:00:00 2022-09-03 10:17:57 Routine Visit Provider, HajaRmchp Oswaldo Resendiz Brenda A [facility] .84.114 350.1.13.10 4.2.7.2.686 [id number] [facility] 2022-08-20 00:00:00 2022-08-20 00:00:00 Telephone Sherley Vogel [facility] 1.84.114 350.1.13.10 4.2.7.2.686 [id number] [facility] 2022-08-13 00:00:00 2022-08-13 00:00:00 Case Management Sherley Vogel [facility] 1.2.840.114 350.1.13.10 4.2.7.2.686 [id number] [facility] 2022-08-12 00:00:00 2022-08-12 00:00:00 Telephone Provider, Deepali Perez [facility] 1.2.840.114 350.1.13.10 4.2.7.2.686 [id number] [facility] 2022-08-12 00:00:00 2022-08-12 00:00:00 Telephone Sierra Moe [facility] 1.2.840.114 350.1.13.10 4.2.7.2.686 [id number] [facility] 2022-08-11 00:00:00 2022-08-11 00:00:00 Case Management Sierra Moe [facility] 1.2.840.114 350.1.13.10 4.2.7.2.686 [id number] [facility] 2022-08-11 00:00:00 2022-08-11 00:00:00 Telephone Sierra Moe [facility] 1.2.840.114 350.1.13.10 4.2.7.2.686 [id number] [facility] 2022-08-09 10:00:00 2022-08-09 10:50:58 Initial Visit Provider, Sierra Sutton [facility] 1.2.840.114 350.1.13.10 4.2.7.2.686 [id number] [facility] 2022-08-09 10:00:00 2022-08-09 10:50:58 Outpatient Beverley DOUGLAS SIERRA [facility] [id number] [facility] Results Test Description Test Time Test Comments Results Result Co [id number] 16:40:49* Test Item Value Reference Range Interpretation Comme nts VENOUS BASE EXCESS, CORD (test code = 6890224437) -10.5 mEq/L VENOUS PH, CORD (test code = 3851797985) 7.10 7.25-7.45 L VENOUS PC02, CORD (test code = 4685815298) 68 See_Comment H [Automated me ssage] The system which generated this result transmitted reference range: 27 - 49 mmHg. The reference range was not used to interpret this result as normal/abnormal. VENOUS PO2, CORD (test code = 1845083566) 15 See_Comment L [Automated me ssage] The system which generated this result transmitted reference range: 17 - 41 mmHg. The reference range was not used to interpret this result as normal/abnormal. VENOUS BICARBONATE, CORD (test code = 9223278836) 20 See_Comment [Automa shayna message] The system which generated this result transmitted reference range: 12 - 29 mEq/L. The reference range was not used to interpret this result as normal/abnormal. Lab Interpretation (test code = 35566-3) [facility] [id number] 16:38:24* Test Item Value Reference Range Interpretation Comme nts BASE EXCESS, CORD (test code = 2699680514) -12.2 mEq/L AC PH, CORD (BEAKER) (test code = 8777112788) 7.04 7.18-7.38 L PC02, CORD (test code = 7728169044) 74 See_Comment H [Automated messa ge] The system which generated this result transmitted reference range: 32 - 66 mmHg. The reference range was not used to interpret this result as normal/abnormal. PO2, CORD (test code = 5518912406) 10 See_Comment [Automated messa ge] The system which generated this result transmitted reference range: 10 - 30 mmHg. The reference range was not used to interpret this result as normal/abnormal. BICARBONATE, CORD (test code = 9428159577) 20 See_Comment [Automated me ssage] The system which generated this result transmitted reference range: 17 - 27 mEq/L. The reference range was not used to interpret this result as normal/abnormal. Lab Interpretation (test code = 84271-5) [facility] [id number] 16:38:24* Test Item Value Reference Range Interpretation Comme nts BASE EXCESS, CORD (test code = 8843645976) -12.2 mEq/L AC PH, CORD (BEAKER) (test code = 5189654985) 7.04 7.18-7.38 L PC02, CORD (test code = 9480889818) 74 See_Comment H [Automated messa ge] The system which generated this result transmitted reference range: 32 - 66 mmHg. The reference range was not used to interpret this result as normal/abnormal. PO2, CORD (test code = 9920819189) 10 See_Comment [Automated messa ge] The system which generated this result transmitted reference range: 10 - 30 mmHg. The reference range was not used to interpret this result as normal/abnormal. BICARBONATE, CORD (test code = 0234287218) 20 See_Comment [Automated me ssage] The system which generated this result transmitted reference range: 17 - 27 mEq/L. The reference range was not used to interpret this result as normal/abnormal. Lab Interpretation (test code = 38563-6) [facility] SPECIFIC [id number] 17:42:00* Test Item Value Reference Range Interpretation Comme nts POCT U SP GRAV (test code = 3255) . 1.005-1.025 POCT PH U (test code = 3254) . 5-8 POCT U LEUK EST (test code = 3263) . Negative - N egative POCT U NIT (test code = 3262) . Negative - Negati ve POCT U PROT (test code = 3259) . Negative - Negat priscilla POCT U GLU (test code = 3256) . Negative - Negati ve POCT U KETONE (test code = 3258) . Negative - Neg ative POCT U UROBILI (test code = 3260) . 0.2-1 POCT U BILI (test code = 3261) . Negative - Negat priscilla POCT U BLD (test code = 3257) . Negative - Negati ve POCT U COLOR (test code = 3266) . POCT U APPEAR (test code = 3267) [facility] URINALYSIS W SPECIFIC [id number] 15:56:00* Test Item Value Reference Range Interpretation Comme nts POCT U SP GRAV (test code = 3255) . 1.005-1.025 POCT PH U (test code = 3254) . 5-8 POCT U LEUK EST (test code = 3263) . Negative - N egative POCT U NIT (test code = 3262) . Negative - Negati ve POCT U PROT (test code = 3259) 1+ Negative - Negat priscilla POCT U GLU (test code = 3256) neg Negative - Negati ve POCT U KETONE (test code = 3258) . Negative - Neg ative POCT U UROBILI (test code = 3260) . 0.2-1 POCT U BILI (test code = 3261) . Negative - Negat priscilla POCT U BLD (test code = 3257) . Negative - Negati ve POCT U COLOR (test code = 3266) . POCT U APPEAR (test code = 3267) . [facility] URINALYSIS W SPECIFIC [id number] 15:56:00* Test Item Value Reference Range Interpretation Comme nts POCT U SP GRAV (test code = 3255) . 1.005-1.025 POCT PH U (test code = 3254) . 5-8 POCT U LEUK EST (test code = 3263) . Negative - N egative POCT U NIT (test code = 3262) . Negative - Negati ve POCT U PROT (test code = 3259) 1+ Negative - Negat priscilla POCT U GLU (test code = 3256) neg Negative - Negati ve POCT U KETONE (test code = 3258) . Negative - Neg ative POCT U UROBILI (test code = 3260) . 0.2-1 POCT U BILI (test code = 3261) . Negative - Negat priscilla POCT U BLD (test code = 3257) . Negative - Negati ve POCT U COLOR (test code = 3266) . POCT U APPEAR (test code = 3267) . [facility] URINALYSIS W SPECIFIC [id number] 15:56:00* Test Item Value Reference Range Interpretation Comme nts POCT U SP GRAV (test code = 3255) . 1.005-1.025 POCT PH U (test code = 3254) . 5-8 POCT U LEUK EST (test code = 3263) . Negative - N egative POCT U NIT (test code = 3262) . Negative - Negati ve POCT U PROT (test code = 3259) 1+ Negative - Negat priscilla POCT U GLU (test code = 3256) neg Negative - Negati ve POCT U KETONE (test code = 3258) . Negative - Neg ative POCT U UROBILI (test code = 3260) . 0.2-1 POCT U BILI (test code = 3261) . Negative - Negat priscilla POCT U BLD (test code = 3257) . Negative - Negati ve POCT U COLOR (test code = 3266) . POCT U APPEAR (test code = 3267) . [facility] URINALYSIS W SPECIFIC [id number] 15:56:00* Test Item Value Reference Range Interpretation Comme nts POCT U SP GRAV (test code = 3255) . 1.005-1.025 POCT PH U (test code = 3254) . 5-8 POCT U LEUK EST (test code = 3263) . Negative - N egative POCT U NIT (test code = 3262) . Negative - Negati ve POCT U PROT (test code = 3259) 1+ Negative - Negat priscilla POCT U GLU (test code = 3256) neg Negative - Negati ve POCT U KETONE (test code = 3258) . Negative - Neg ative POCT U UROBILI (test code = 3260) . 0.2-1 POCT U BILI (test code = 3261) . Negative - Negat priscilla POCT U BLD (test code = 3257) . Negative - Negati ve POCT U COLOR (test code = 3266) . POCT U APPEAR (test code = 3267) . [facility] URINALYSIS W SPECIFIC [id number] 15:56:00* Test Item Value Reference Range Interpretation Comme nts POCT U SP GRAV (test code = 3255) . 1.005-1.025 POCT PH U (test code = 3254) . 5-8 POCT U LEUK EST (test code = 3263) . Negative - N egative POCT U NIT (test code = 3262) . Negative - Negati ve POCT U PROT (test code = 3259) 1+ Negative - Negat priscilla POCT U GLU (test code = 3256) neg Negative - Negati ve POCT U KETONE (test code = 3258) . Negative - Neg ative POCT U UROBILI (test code = 3260) . 0.2-1 POCT U BILI (test code = 3261) . Negative - Negat priscilla POCT U BLD (test code = 3257) . Negative - Negati ve POCT U COLOR (test code = 3266) . POCT U APPEAR (test code = 3267) . [facility] URINALYSIS W SPECIFIC [id number] 15:56:00* Test Item Value Reference Range Interpretation Comme nts POCT U SP GRAV (test code = 3255) . 1.005-1.025 POCT PH U (test code = 3254) . 5-8 POCT U LEUK EST (test code = 3263) . Negative - N egative POCT U NIT (test code = 3262) . Negative - Negati ve POCT U PROT (test code = 3259) 1+ Negative - Negat priscilla POCT U GLU (test code = 3256) neg Negative - Negati ve POCT U KETONE (test code = 3258) . Negative - Neg ative POCT U UROBILI (test code = 3260) . 0.2-1 POCT U BILI (test code = 3261) . Negative - Negat priscilla POCT U BLD (test code = 3257) . Negative - Negati ve POCT U COLOR (test code = 3266) . POCT U APPEAR (test code = 3267) . [facility] URINALYSIS W SPECIFIC [id number] 15:59:00* Test Item Value Reference Range Interpretation Comme nts POCT U SP GRAV (test code = 3255) . 1.005-1.025 POCT PH U (test code = 3254) . 5-8 POCT U LEUK EST (test code = 3263) . Negative - N egative POCT U NIT (test code = 3262) . Negative - Negati ve POCT U PROT (test code = 3259) 1+ Negative - Negat priscilla POCT U GLU (test code = 3256) 50 Negative - Negati ve POCT U KETONE (test code = 3258) . Negative - Neg ative POCT U UROBILI (test code = 3260) . 0.2-1 POCT U BILI (test code = 3261) . Negative - Negat priscilla POCT U BLD (test code = 3257) . Negative - Negati ve POCT U COLOR (test code = 3266) . POCT U APPEAR (test code = 3267) . [facility] URINALYSIS W SPECIFIC [id number] 15:59:00* Test Item Value Reference Range Interpretation Comme nts POCT U SP GRAV (test code = 3255) . 1.005-1.025 POCT PH U (test code = 3254) . 5-8 POCT U LEUK EST (test code = 3263) . Negative - N egative POCT U NIT (test code = 3262) . Negative - Negati ve POCT U PROT (test code = 3259) 1+ Negative - Negat priscilla POCT U GLU (test code = 3256) 50 Negative - Negati ve POCT U KETONE (test code = 3258) . Negative - Neg ative POCT U UROBILI (test code = 3260) . 0.2-1 POCT U BILI (test code = 3261) . Negative - Negat priscilla POCT U BLD (test code = 3257) . Negative - Negati ve POCT U COLOR (test code = 3266) . POCT U APPEAR (test code = 3267) . [facility] URINALYSIS W SPECIFIC [id number] 15:59:00* Test Item Value Reference Range Interpretation Comme nts POCT U SP GRAV (test code = 3255) . 1.005-1.025 POCT PH U (test code = 3254) . 5-8 POCT U LEUK EST (test code = 3263) . Negative - N egative POCT U NIT (test code = 3262) . Negative - Negati ve POCT U PROT (test code = 3259) 1+ Negative - Negat priscilla POCT U GLU (test code = 3256) 50 Negative - Negati ve POCT U KETONE (test code = 3258) . Negative - Neg ative POCT U UROBILI (test code = 3260) . 0.2-1 POCT U BILI (test code = 3261) . Negative - Negat priscilla POCT U BLD (test code = 3257) . Negative - Negati ve POCT U COLOR (test code = 3266) . POCT U APPEAR (test code = 3267) . [facility] URINALYSIS W SPECIFIC [id number] 15:59:00* Test Item Value Reference Range Interpretation Comme nts POCT U SP GRAV (test code = 3255) . 1.005-1.025 POCT PH U (test code = 3254) . 5-8 POCT U LEUK EST (test code = 3263) . Negative - N egative POCT U NIT (test code = 3262) . Negative - Negati ve POCT U PROT (test code = 3259) 1+ Negative - Negat priscilla POCT U GLU (test code = 3256) 50 Negative - Negati ve POCT U KETONE (test code = 3258) . Negative - Neg ative POCT U UROBILI (test code = 3260) . 0.2-1 POCT U BILI (test code = 3261) . Negative - Negat priscilla POCT U BLD (test code = 3257) . Negative - Negati ve POCT U COLOR (test code = 3266) . POCT U APPEAR (test code = 3267) . [facility] URINALYSIS W SPECIFIC [id number] 16:48:00* Test Item Value Reference Range Interpretation Comme nts POCT U SP GRAV (test code = 3255) . 1.005-1.025 POCT PH U (test code = 3254) . 5-8 POCT U LEUK EST (test code = 3263) . Negative - Negative POCT U NIT (test code = 3262) . Negative - Negati ve POCT U PROT (test code = 3259) 1+ Negative - Negat priscilla POCT U GLU (test code = 3256) negative Negative - Negati ve POCT U KETONE (test code = 3258) . Negative - Neg ative POCT U UROBILI (test code = 3260) . 0.2-1 POCT U BILI (test code = 3261) . Negative - Negat priscilla POCT U BLD (test code = 3257) . Negative - Negati ve POCT U COLOR (test code = 3266) . POCT U APPEAR (test code = 3267) [facility] URINALYSIS W SPECIFIC [id number] 15:03:00* Test Item Value Reference Range Interpretation Comme nts POCT U SP GRAV (test code = 3255) . 1.005-1.025 POCT PH U (test code = 3254) . 5-8 POCT U LEUK EST (test code = 3263) . Negative - N egative POCT U NIT (test code = 3262) . Negative - Negati ve POCT U PROT (test code = 3259) Trace Negative - Negat priscilla POCT U GLU (test code = 3256) Neg Negative - Negati ve POCT U KETONE (test code = 3258) . Negative - Neg ative POCT U UROBILI (test code = 3260) . 0.2-1 POCT U BILI (test code = 3261) . Negative - Negat priscilla POCT U BLD (test code = 3257) . Negative - Negati ve POCT U COLOR (test code = 3266) . POCT U APPEAR (test code = 3267) [facility] URINALYSIS W SPECIFIC [id number] 15:03:00* Test Item Value Reference Range Interpretation Comme nts POCT U SP GRAV (test code = 3255) . 1.005-1.025 POCT PH U (test code = 3254) . 5-8 POCT U LEUK EST (test code = 3263) . Negative - N egative POCT U NIT (test code = 3262) . Negative - Negati ve POCT U PROT (test code = 3259) Trace Negative - Negat priscilla POCT U GLU (test code = 3256) Neg Negative - Negati ve POCT U KETONE (test code = 3258) . Negative - Neg ative POCT U UROBILI (test code = 3260) . 0.2-1 POCT U BILI (test code = 3261) . Negative - Negat priscilla POCT U BLD (test code = 3257) . Negative - Negati ve POCT U COLOR (test code = 3266) . POCT U APPEAR (test code = 3267) [facility] URINALYSIS W SPECIFIC [id number] 15:03:00* Test Item Value Reference Range Interpretation Comme nts POCT U SP GRAV (test code = 3255) . 1.005-1.025 POCT PH U (test code = 3254) . 5-8 POCT U LEUK EST (test code = 3263) . Negative - N egative POCT U NIT (test code = 3262) . Negative - Negati ve POCT U PROT (test code = 3259) Trace Negative - Negat priscilla POCT U GLU (test code = 3256) Neg Negative - Negati ve POCT U KETONE (test code = 3258) . Negative - Neg ative POCT U UROBILI (test code = 3260) . 0.2-1 POCT U BILI (test code = 3261) . Negative - Negat priscilla POCT U BLD (test code = 3257) . Negative - Negati ve POCT U COLOR (test code = 3266) . POCT U APPEAR (test code = 3267) [facility] URINALYSIS W/O SPECIFIC [id number] 15:26:00* Test Item Value Reference Range Interpretation Comme nts POCT PH U (test code = 3254) 7 mg/dl 5-8 POCT U LEUK EST (test code = 3263) negative Negative - Negative POCT U NIT (test code = 3262) negative Negative - Negati ve POCT U PROT (test code = 3259) trace Negative - Negat priscilla POCT U GLU (test code = 3256) negative Negative - Negati ve POCT U KETONE (test code = 3258) negative Negative - Neg ative POCT U BLD (test code = 3257) negative Negative - [facility]ati ve [facility] [id number] 14:41:00* Test Item Value Reference Range Interpretation Comme nts POCT PREG (test code = 1605) Positive On board controls acceptable with C Line (test code = 3574) Yes POCT PREG LOT # (test code = 3575) POCT PREG TEST DATE ( test code = 3576) [facility] SPECIFIC [id number] 14:40:00* Test Item Value Reference Range Interpretation Comme nts POCT PH U (test code = 3254) 6 mg/dl 5-8 POCT U LEUK EST (test code = 3263) 2+ Negative - Negative POCT U NIT (test code = 3262) negative Negative - Negati ve POCT U PROT (test code = 3259) trace Negative - Negat priscilla POCT U GLU (test code = 3256) negative Negative - Negati ve POCT U KETONE (test code = 3258) negative Negative - Neg ative POCT U BLD (test code = 3257) negative Negative - Negati ve [facility]
--- NOTE | 2024-01-25 07:38 | ER ---
Nurse's Notes [facility] Name: Maria G Broussard Age: 23 yrs Sex: Female : 2000 Arrival Date: 01/25/2024 Time: 07:08 Bed 17 Private MD: Diagnosis: Acute serous otitis media, left ear Presentation: 01/24 07:18 Chief complaint: Patient states: L ear pain with decreased hearing started yesterday. ll1 Drainage started this morning. No fevers. Coronavirus screen: Client denies travel out of the [place] in the last 14 days. At this time, the client does not indicate any symptoms associated with coronavirus-19. Ebola Screen: Patient denies travel to an Ebola-affected area in the 21 days before illness onset. Initial Sepsis Screen: Does the patient meet any 2 criteria? No. Patient's initial sepsis screen is negative. Does the patient have a suspected source of infection? No. Patient's initial sepsis screen is negative. Risk Assessment: Do you want to hurt yourself or someone else? Patient reports no desire to harm self or others. Onset of symptoms was January 24, 2024. 07:18 Method Of Arrival: Ambulatory ll1 07:18 Acuity: PETER 4 ll1 Triage Assessment: 07:20 General: Appears in no apparent distress. Behavior is calm, cooperative, appropriate ll1 for age. Pain: Complains of pain in left ear Pain currently is 7 out of 10 on a pain scale. EENT: Reports pain in left ear. Historical: - Allergies: 07:17 No Known Allergies; ll1 - PMHx: 07:17 None; ll1 - PSHx: 07:17 section; ll1 - Immunization history:: Adult Immunizations up to date. - Infectious Disease History:: Denies. - Social history:: Smoking status: Patient denies any tobacco usage or history of. - Family history:: not pertinent. - Hospitalizations: : No recent hospitalization is reported. Screenin:27 [facility] ED Fall Risk Assessment (Adult) History of falling in the last 3 months, db including since admission No falls in past 3 months (0 pts) Confusion or Disorientation No (0 pts) Intoxicated or Sedated No (0 pts) Impaired Gait No (0 pts) Mobility Assist Device Used No (0 pt) Altered Elimination No (0 pt) Score/Fall Risk Level 0 - 2 = Low Risk Oriented to surroundings, Maintained a safe environment. Abuse screen: Denies threats or abuse. Denies injuries from another. Nutritional screening: No deficits noted. Tuberculosis screening: No symptoms or risk factors identified. Assessment: 07:27 Reassessment: Patient appears in no apparent distress at this time. Patient and/or db family updated on plan of care and expected duration. Pain level reassessed. Patient is alert, oriented x 3, equal unlabored respirations, skin warm/dry/pink. General: Appears in no apparent distress. comfortable, Behavior is calm, cooperative. Pain: Complains of pain in left ear. Neuro: Level of Consciousness is awake, alert, obeys commands, Oriented to person, place, time, situation. Cardiovascular: No deficits noted. Respiratory: No deficits noted. Airway is patent Respiratory effort is even, unlabored, Respiratory pattern is regular, symmetrical. GI: No deficits noted. No signs and/or symptoms were reported involving the gastrointestinal system. : No deficits noted. No signs and/or symptoms were reported regarding the genitourinary system. EENT: Reports pain in left ear. Vital Signs: 07:18 BP 113 / 71; Pulse 79; Resp 17; Temp 98; Pulse Ox 100% on R/A; Weight 68.04 kg; Height ll1 5 ft. 1 in. ; Pain 7/10; 07:18 Body Mass Index 28.34 (68.04 kg, 154.94 cm) ll1 07:18 Pain Scale: Adult ll1 ED Course: 07:11 Patient arrived in ED. im 07:11 Sami Vargas MD is Attending Physician. rn 07:13 Arm band placed on Patient placed in an exam room, on a stretcher. ll1 07:20 Triage completed. ll1 07:27 Nedra Wolf, RN is Primary Nurse. db 07:27 Patient has correct armband on for positive identification. Bed in low position. Call db light in reach. Side rails up X 1. Pulse ox on. NIBP on. 07:27 No provider procedures requiring assistance completed. db 07:44 Provided Education on: DISCHARGE AND EAR INFECTION. db 07:44 Patient did not have IV access during this emergency room visit. db Administered Medications: No medications were administered Medication: 07:27 VIS not applicable for this client. db Outcome: 07:37 Discharge ordered by . mallorie 07:44 Discharged to home ambulatory, db 07:44 Condition: stable 07:44 Discharge instructions given to patient, Instructed on discharge instructions, follow up and referral plans. Prescriptions given X 1, 07:45 Patient left the ED. db Signatures: Sami Vargas MD MD rn Lewis, Lynsay RN RN ll1 Nedra Wolf RN RN db Deepa Velez
--- NOTE | 2024-01-25 07:38 | EDPHYS ---
Physician Documentation [facility] Name: Maria G Broussard Age: 23 yrs Sex: Female : 2000 Arrival Date: 01/25/2024 Time: 07:08 Bed 17 Private MD: ED Physician Sami Vargas HPI: 01/24 07:32 This 23 yrs old Black Female presents to ER via Ambulatory with complaints of Ear Pain. rn 07:32 The patient presents with drainage, pain, that is acute. The complaints affect the left rn ear. Onset: The symptoms/episode began/occurred yesterday. Modifying factors: The symptoms are alleviated by nothing, the symptoms are aggravated by nothing. Severity of symptoms: At their worst the symptoms were mild in the emergency department the symptoms are unchanged. The patient has not experienced similar symptoms in the past. The patient has not recently seen a physician. Patient reports pain to left ear since yesterday, not draining since this morning. Denies trauma. No upper respiratory infection symptoms. No fever. Has never happened before. Also reports muffled sounds.. Historical: - Allergies: 07:17 No Known Allergies; ll1 - PMHx: 07:17 None; ll1 - PSHx: 07:17 section; ll1 - Immunization history:: Adult Immunizations up to date. - Infectious Disease History:: Denies. - Social history:: Smoking status: Patient denies any tobacco usage or history of. - Family history:: not pertinent. - Hospitalizations: : No recent hospitalization is reported. ROS: 07:32 Constitutional: Negative for fever, chills, and weight loss, ENT: + left ear pain and rn drainage Respiratory: Negative for shortness of breath, cough, wheezing, and pleuritic chest pain, Exam: 07:32 Constitutional: This is a well developed, well nourished patient who is awake, alert, rn and in no acute distress. ENT: Positive for left ear mild effusion. No perforation. No foreign body. Vital Signs: 07:18 BP 113 / 71; Pulse 79; Resp 17; Temp 98; Pulse Ox 100% on R/A; Weight 68.04 kg; Height ll1 5 ft. 1 in. ; Pain 7/10; 07:18 Body Mass Index 28.34 (68.04 kg, 154.94 cm) ll1 07:18 Pain Scale: Adult ll1 MDM: 07:11 Patient medically screened. rn 07:32 Differential diagnosis: otitis media, ruptured TM, foreign body, acute otalgia, rn kwabena. Data reviewed: vital signs, nurses notes, and as a result, I will discharge patient. Counseling: I had a detailed discussion with the patient and/or guardian regarding the historical points, exam findings, and any diagnostic results supporting the discharge/admit diagnosis, the need for outpatient follow up, to return to the emergency department if symptoms worsen or persist or if there are any questions or concerns that arise at home. Special discussion: I discussed with the patient/guardian in detail that at this point there is no indication for admission to the hospital. It is understood, however, that if the symptoms persist or worsen the patient needs to return immediately for re-evaluation. Administered Medications: No medications were administered Disposition Summary: 01/25/24 07:37 Discharge Ordered Notes: Location: Home rn Problem: new rn Symptoms: are unchanged rn Condition: Stable rn Diagnosis - Acute serous otitis media, left ear rn Followup: rn - With: Private Physician - When: As needed - Reason: Recheck today's complaints, Re-evaluation by your physician Discharge Instructions: - Otitis Media, Adult rn - Discharge Summary Sheet ll1 Forms: - Medication Reconciliation Form rn - Thank You Letter rn - Antibiotic business attorney - Prescription Opioid Use rn - Patient Portal Instructions rn - Leadership Thank You Letter rn - Work release form ll1 Prescriptions: - Augmentin 875-125 mg Oral Tablet - take 1 tablet ORAL route every 12 hours for 10 days; 20 tablet; Refills: 0, rn Product Selection Permitted Signatures: Sami Vargas MD MD rn Lewis, Lynsay, RN RN 1 Nedra Wolf RN RN db
[2024-01-25 08:12] VITALS: BP 113/71; TEMP 98; O2SAT 100
== END 2024-01-25 07:45 | disposition home or self-care (01) ==
LOC: ER 07:08
DX: H65.02 Acute serous otitis media, left ear (principal)
CPT/HCPCS: 99283

== ENCOUNTER 2024-10-22 22:55 | Emergency (ER) | payer OTHER ==
--- OUTSIDE RECORDS SUMMARY | 2024-10-22 23:01 | XMS REPORT | Continuity of Care Document ---
Author Name Unknown Address [address] [facility] [address] [place] [address] [facility] Address [address] [facility] [address] [place] [address] Care Team Providers Care Tech Ed Teacher Name Role Phone ROSA MARIA BAEZ Primary Care Physician SAPPHIRE Rueda Attending Clinician ROSA MARIA Kapadia Attending Clinician PORSHA Mallory Attending Clinician PORSHA Bhatt Attending Clinician Porsha Bhatt MD Attending Clinician + [phone] Rosa Maria Liu Attending Clinician + Sapphire Munoz MD Attending Clinician [phone] Cinthya Engle RN Attending Clinician SHERLEY Torres Attending Clinician Sherley Miranda CNM Attending Clinician [phone] AUSTIN CERDA Attending Clinician Rosa Maria Porras Attending Clinician + Odalys, [facility] Attending Clinician CYNDY Ruggiero Attending Clinician Koby Hoffman MD Attending Clinician [phone] Cyndy Mcneal MD Attending Clinician + Doctor Unassigned, Mcintire Attending Clinician Elan Benoit Attending Clinician Unavaildaryl Maravilla MD, Godwin Attending Clinician [phone] GODWIN MARAVILLA Attending Clinician Unavailable GODWIN MARAVILLA Attending Clinician Unavailable Provider, [facility] Tem Attending Clinician Eliza Boston OIL PIPE INSPECTOR HELPER, Oswaldo Lowery Attending Clinician [phone] Sherley Vogel CNM Attending Clinician OSWALDO BOSTON Attending Clinician Unavailab maggie Moe OIL PIPE INSPECTOR HELPER, Sierra Attending Clinician [phone] SIERRA MOE Attending Clinician Unavailable PORSHA SHEPHERD Admitting Clinician Lorraine Shepherd MD, Porsha Admitting Clinician + [phone] CYNDY MCNEAL Admitting Clinician Unav ailnettie Kaur MD, Cyndy Admitting Clinician + Payers Payer Name Policy Type Policy Number Effective Date Expirati on Date Source [place] [employer] [id number] 2024 00:00:00 [place] [id number] 2024 00:00:00 Problems Condition Name Condition Details Condition Category Status Onset Date Resolution Date Last Treatment Date Treating Clinician Comments Source Uterine contractio ns during Uterine contractio ns during Disease Active 2023-10 00:00: 00 [facility] 38 weeks gestation of 38 weeks gestation of Disease Active 2023-10 00:00: 00 [facility] Single liveborn, born in hospital, delivered by delivery Single liveborn, born in hospital, delivered by delivery Disease Active 2023-10 00:00: 00 [facility] Hematemesi s with nausea Hematemesi s with nausea Disease Active 2023-10 00:00: 00 [facility] Late care affecting in third trimester Late care affecting in third trimester Disease Active 2023-10 00:00: 00 [facility] Anemia of mother in , antepartum Anemia of mother in , antepartum Disease Active 2024-1 1-13 00:00: 00 [facility] Obesity (BMI 30-39.9) Obesity (BMI 30-39.9) Disease Active 3-10 00:00: 00 [facility] Obesity in Obesity in Disease Active 0 3-10 00:00: 00 [facility] Papanicola ou smear of cervix with atypical squamous cells cannot exclude high grade squamous intraepith elial lesion (ASC-H) Papanicola ou smear of cervix with atypical squamous cells cannot exclude high grade squamous intraepith elial lesion (ASC-H) Disease Active 2021-10 1- 00:00: 00 Overview: Formattin g of this note might be different from the original. Repeat testing in 1 year. [facility] Supervisio n of high-risk with insufficie nt care Supervisio n of high-risk with insufficie nt care Disease Active 2021-10 0 00:00: 00 Overview: Formattin g of this note might be different from the original. Entered care at 21 weeks [facility] History of delivery, currently in second trimester History of delivery, currently in second trimester Disease Active 2021-10 0-29 00:00: 00 [facility] Previous delivery affecting Previous delivery affecting Disease Active 2021-10 0-29 00:00: 00 [facility] Multiparit y Multiparit y Disease Active 2021-10 0- 00:00: 00 [facility] 36 weeks gestation of 36 weeks gestation of Disease Resolve d 2023-1 1-19 00:00: 00 2024-09-11 00:00:00 2024-09-11 02:00:14 [facility] Status post section Status post section Disease Resolve d 2022-0 3-11 00:00: 00 2024-08-23 00:00:00 2024-08-23 14:20:52 [facility] 39 weeks gestation of 39 weeks gestation of Disease Resolve d 2022-0 3-10 00:00: 00 2024-08-23 00:00:00 2024-08-23 14:20:12 [facility] Positive GBS test Positive GBS test Disease Resolve d 2022- 2-23 00:00: 00 2024-08-23 00:00:00 2024-08-23 14:20:33 Overview: Formattin g of this note might be different from the original. address pp [facility] headache in second trimester headache in second trimester Disease Resolve d 2021-10 0-29 00:00: 00 2024-08-23 00:00:00 2024-08-23 14:20:36 [facility] BMI 35.0-35.9, adult BMI 35.0-35.9, adult Disease Resolve d 2021-10 0-29 00:00: 00 2024-08-23 00:00:00 2024-08-23 14:20:13 [facility] Vaginal discharge during in second trimester Vaginal discharge during in second trimester Disease Resolve d 2021-10 0-29 00:00: 00 2022-09-05 00:00:00 2022-09-05 17:02:34 [facility] Allergies, Adverse Reactions, Alerts Allergy Name Allergy Type Status Severity Reaction(s) Onset Date Inactive Date Treating Clinician Comments Source NO KNOWN ALLERGIE S Drug Class Active [facility] Social History Social Habit Start Date Stop Date Quantity Comments Source ASSERTION 2024-01-02 00:00:00 [facility] Alcoholic beverage intake 2024-09-12 00:00:00 2024-09-12 00:00:00 Ex-drinker (finding) [facility] History of Social function 2024-08-23 00:00:00 2024-08-23 00:00:00 [facility] Exposure to SARS-CoV-2 (event) 2022-12-16 00:00:00 2022-12-26 10:21:00 Not sure [facility] Alcohol intake 2022-10-29 00:00:00 2022-10-29 00:00:00 Ex-drinker (finding) [facility] Tobacco use and exposure 2022-08-09 00:00:00 2022-08-09 00:00:00 Smokeless tobacco non-user [facility] Sex assigned at 2000 00:00:00 2000 00:00:00 [facility] Smoking Status Start Date Stop Date Source Never smoked tobacco [facility] Medications Ordered Medication Name Filled Medication Name Start Date Stop Date Current Medication? Ordering Clinician Indication Dosage Frequency Signature (SIG) Comments Components Source ferrous sulfate tablet 325 mg 2023-10 14:00: 00 Yes 325mg 325 mg, Oral, TID MEALS, First dose on 09/12/24 at 0800, Until Discontinu ed, Routine [facility] vitamin w/FA tablet 2023-10 00:00: 00 Yes [id number] 1{tbl} Take 1 tablet by mouth in the morning. [facility] docusate 100 mg capsule 2023-10 00:00: 00 Yes [id number] 200mg Take 2 capsules by mouth once daily as needed for Constipati on. [facility] ferrous sulfate 325 mg (65 mg iron) tablet 2023-10 00:00: 00 Yes [id number] 325mg Take 1 tablet by mouth in the morning. [facility] ibuprofen 800 mg tablet 2023-10 00:00: 00 Yes [id number] 800mg Take 1 tablet by mouth every 8 (eight) hours as needed (pain). Take with food or milk. [facility] acetaminoph en 500 mg tablet 2023-10 00:00: 00 Yes [id number] 1000mg Take 2 tablets by mouth every 8 (eight) hours as needed for Pain. [facility] docusate (COLACE) capsule 200 mg 2023-10 15:00: 00 Yes 200mg 200 mg, Oral, DAILY, First dose on 09/11/24 at 0900, Until Discontinu ed, Routine [facility] ibuprofen (IBU) tablet 800 mg 2023-10 14:45: 00 Yes 800mg 800 mg, Oral, Q8HA1, First dose on 09/11/24 at 0845, Until Discontinu ed, Routine [facility] simethicone (GAS RELIEF (SIMETHICON E)) chewable tablet 160 mg 2023-10 14:00: 00 Yes 160mg 160 mg, Oral, TID, First dose on 09/11/24 at 0800, Until Discontinu ed, Routine [facility] acetaminoph en (TYLENOL) tablet 1,000 mg 2023-10 10:45: 00 Yes 1000mg 1,000 mg, Oral, Q8H, First dose on 09/11/24 at 0445, Until Discontinu ed, Routine [facility] rho(D) immune globulin (RHOPHYLAC) injection 300 mcg 2023-10 10:34: 24 Yes 300ug [facility] oxyCODONE immediate release tablet 5 mg 2023-10 10:34: 06 Yes 5mg 5 mg, Oral, Q6HPRN, Starting on 09/11/24 at 0434, Until Discontinu ed, Routine, Pain (scale 7-10), membership sales advisor approving Restricted medication : LUCIO-COURTNEY IS, PORSHA [facility] diphenhydrA MINE (BENADRYL) injection 25 mg 2023-10 10:33: 28 Yes 25mg [facility] diphenhydrA MINE (BENADRYL) tablet 25 mg 2023-10 10:33: 28 Yes 25mg [facility] ondansetron (ZOFRAN (PF)) injection 4 mg 2023-10 10:33: 28 Yes 4mg [facility] bisacodyL (DULCOLAX) suppository 10 mg 2023-10 10:33: 27 Yes 10mg [facility] magnesium hydroxide (MILK OF MAGNESIA) 400 mg/5 mL suspension 30 mL 2023-10 10:33: 27 Yes 30mL [facility] lactated ringers IV infusion 1,000 mL 2023-10 10:33: 27 Yes 1000mL [facility] diphenhydrA MINE (BENADRYL) injection 25 mg 2023-10 09:46: 49 09-13 00:55 :37 Yes 25mg 25 mg, Slow IV Push, Q4HPRN, Starting on Thu09/11/24 at 0346, Until 09/12/24 at 1855, Routine, Itching [facility] naloxone (NARCAN) injection 0.4 mg 2023-10 09:46: 12 09-13 09:45 :12 Yes .4mg 0.4 mg, Slow IV Push, PRN - SEE INSTRUCTIO NS, Starting on Thu09/11/24 at 0346, Until Tu09/13/24 at 0345, Routine, Sedation/R espiratory Depression , Analgesia Recovery [facility] sodium chloride 0.9 % irrigation solution 2023-10 08:30: 00 Yes PRN, Starting on Thu09/11/24 at 0230, Until Discontinu ed, Intra-op [facility] tranexamic acid in (ISO-OS) sodium chloride 1,000 mg/100 mL (10 mg/mL) IV 1,000 mg 2023-10 07:33: 41 Yes 1000mg at 300 mL/hr, 1,000 mg, IV Piggyback, PRN, 1 dose, Starting on Thu09/11/24 at 0133, Until Discontinu ed, Routine [facility] oxytocin (PITOCIN) 30 units in NS 500 mL IV infusion 2023-10 07:33: 41 Yes 600mL/h 600 mL/hr, IV Infusion, PRN, PPH, Starting on Thu09/11/24 at 0133, For 1 dose, As instructed by physician at bedside. [facility] lidocaine 1% (XYLOCAINE) 10 mg/mL (1 %) injection 50 mL 2023-10 07:33: 41 Yes 50mL 50 mL, Infiltrati on, PRN - SEE INSTRUCTIO NS, Starting on Thu09/11/24 at 0133, Until Discontinu ed, Routine, Local anesthesia , For laceration repair only as a local anesthetic as indicated. [facility] lidocaine 1% (PF) (XYLOCAINE) injection 0.3 mL 2023-10 07:33: 41 Yes .3mL 0.3 mL, Infiltrati on, PRN - SEE INSTRUCTIO NS, Starting on Thu09/11/24 at 0133, Until Discontinu ed, Routine, Local anesthesia , For IV line placement only as a local anesthetic . [facility] lactated ringers IV infusion 250 mL 2023-10 07:33: 41 Yes 250mL at 999 mL/hr, 250 mL, IV Infusion, PRN - SEE INSTRUCTIO NS, Starting on Thu09/11/24 at 0133, Until Discontinu ed, Routine [facility] D5W-LR IV infusion 1,000 mL 2023-10 07:33: 41 Yes 1000mL at 1-75 mL/hr, IV Infusion, TITRATE, Starting on Thu09/11/24 at 013, Until Discontinu ed, Routine [facility] sodium citrate-cit neeru acid (BICITRA) 500-334 mg/5 mL solution 30 mL 2023-10 07:33: 41 09-11 08:23 :00 No 30mL 30 mL, Oral, PRE-PROCED URE ONCE, 1 dose, Starting on Thu09/11/24 at 0133, Until Thu09/11/24 at 0223, Routine, Surgery/Pr ocedure [facility] fluconazole (DIFLUCAN) tablet 150 mg 2023-10 01:15: 00 Yes 150mg 150 mg, Oral, DAILY, First dose (after last modificati on) on Thu08/30/24 at 1915, Until Discontinu ed, BLU, Reason for Anti-Infec tive: Documented Infection, Documented Infection Site: Other, Other site: vaginal, Duration of Therapy: Once (ED) [facility] D5W-LR IV infusion 1,000 mL 2023-10 21:49: 00 08-30 21:55 :41 No 1000mL at 125 mL/hr, IV Infusion, ONCE, 1 dose, On Thu08/30/24 at 1600, Routine [facility] diphenhydrA MINE:lidoca ine 2% viscous:maa lox 1:1:1 (FIRST-MOUT HWASH BLM) oral suspension 15 mL 2023-10 20:35: 00 08-30 20:52 :00 No 15mL 15 mL, Oral, ONCE, 1 dose, On Thu08/30/24 at 1445, Routine [facility] metoclopram isatu HCl (REGLAN) injection 10 mg 2023-10 20:34: 00 08-30 20:53 :00 No 10mg 10 mg, Slow IV Push, ONCE, 1 dose, On Thu08/30/24 at 1445, Routine [facility] lactated ringers IV infusion 1,000 mL 2023-10 20:19: 00 08-30 21:38 :01 No 1000mL at 999 mL/hr, 1,000 mL, IV Infusion, ONCE, 1 dose, On Thu08/30/24 at 1430, BLU [facility] famotidine (PEPCID) 20 mg tablet 2023-10 00:00: 00 09-12 00:00 :00 No [id number] 20mg Take 1 tablet by mouth in the morning and 1 tablet in the evening. [facility] ascorbic acid, vitamin C, 500 mg tablet 2023-10 00:00: 00 09-12 00:00 :00 No [id number] 500mg Take 1 tablet by mouth in the morning and 1 tablet at noon and 1 tablet in the evening. [facility] ferrous sulfate 325 mg (65 mg iron) tablet 2023-10 00:00: 00 09-12 00:00 :00 No [id number] 325mg Take 1 tablet by mouth in the morning and 1 tablet in the evening. [facility] PNV 67-iron ps-folate no.1-dha (VITAFOL ULTRA) 29 mg iron- 1 mg-200 mg Cap 2023-10 00:00: 00 09-12 00:00 :00 No [id number] 09 1{each} Take 1 Each by mouth in the morning. [facility] vitamin w/FA tablet 12-20 00:00: 00 Yes [id number] 1{tbl} Take 1 tablet by mouth in the morning. [facility] vitamin w/FA tablet 12-20 00:00: 09-12 00:00 :00 No [id number] 1{tbl} Take 1 tablet by mouth in the morning. [facility] docusate 100 mg capsule 12-20 00:00: 00 08-23 00:00 :00 No [id number] 200mg Take 2 capsules by mouth once daily as needed for Constipati on. [facility] ferrous sulfate 325 mg (65 mg iron) tablet 12-20 00:00: 00 08-23 00:00 :00 No [id number] 325mg Take 1 tablet by mouth in the morning and 1 tablet in the evening. [facility] ibuprofen 600 mg tablet 12-20 00:00: 00 08-23 00:00 :00 No [id number] 600mg Take 1 tablet by mouth every 6 (six) hours as needed (Pain). Take with food or milk. [facility] simethicone 80 mg chewable tablet 12-20 00:00: 00 08-23 00:00 :00 No [id number] 80mg Take 1 tablet by mouth after meals and at bedtime. [facility] HYDROcodone -acetaminop hen 5-325 mg tablet 12-20 00:00: 00 12-28 04:59 :00 No [id number] 1{tbl} Take 1 tablet by mouth every 6 (six) hours as needed for Pain (scale 7-10) (Pain scale above 4) for up to 7 days. Do not exceed 3 grams of acetaminop hen in 24 hours. Indication s: acute pain [facility] ondansetron (ZOFRAN (PF)) injection 4 mg 12-19 20:46: 12 Yes 4mg 4 mg, Slow IV Push, Q8HPRN, Starting on Thu12/19/22 at 1446, Until Discontinu ed, Routine, Nausea and Vomiting (N/V) [facility] bisacodyL (DULCOLAX) suppository 10 mg 12-19 20:46: 12 Yes 10mg 10 mg, Rectal, QDAILYPRN, Starting on Thu12/19/22 at 1446, Until Discontinu ed, Routine, Constipati on [facility] magnesium hydroxide (MILK OF MAGNESIA) 400 mg/5 mL suspension 30 mL 12-19 20:46: 12 Yes 30mL 30 mL, Oral, QDAILYPRN, Starting on Thu12/19/22 at 1446, Until Discontinu ed, Routine, Constipati on [facility] lactated ringers IV infusion 1,000 mL 12-19 17:15: 00 12-20 15:44 :00 No 1000mL at 125 mL/hr, 1,000 mL, IV Infusion, CONTINUOUS , Starting on Thu12/19/22 at 1115, Until 12/20/22 at 0944, BLU [facility] ibuprofen (IBU) tablet 600 mg 12-19 17:13: 32 Yes 600mg 600 mg, Oral, Q6HPRN, Starting on Thu12/19/22 at 1113, Until Discontinu ed, Routine, Pain (scale 1-3) [facility] oxytocin (PITOCIN) 30 units in NS 500 mL IV infusion 12-19 17:13: 13 Yes 600mL/h 600 mL/hr, IV Infusion, PRN, For post delivery uterine atony., Starting on Thu12/19/[address] at 600 mL/hr for 1 hr then 150 mL/hr for 1 hr.
[facility] oxytocin (PITOCIN) 30 units in NS 500 mL IV infusion 12-19 17:13: 13 Yes 300mL/h 300 mL/hr, IV Infusion, SEE-INSTRU CTIONS, Starting on Thu12/19/[address] at 300 mL/hr for 1 hr then 150 mL/hr for 1 hr. & nbsp; For post delivery uterotonic
[facility] lactated ringers IV infusion 1,000 mL 12-19 17:00: 00 12-19 17:14 :05 No 1000mL at 125 mL/hr, 1,000 mL, IV Infusion, ONCE, 1 dose, On Thu12/19/22 at 1100, Routine [facility] nalbuphine (NUBAIN) injection 5 mg 12-19 16:57: 02 Yes 5mg 5 mg, Intravenou s, PRN, 1 dose, Starting on Thu12/19/22 at 1057, Until Discontinu ed, Routine, itching, PACU [facility] ketorolac (TORADOL) injection 30 mg 12-19 16:57: 02 12-22 05:59 :00 No 30mg 30 mg, Slow IV Push, PRN, 1 dose, Starting on Thu12/19/22 at 1057, Until 12/22/22 at 0059, Routine, Pain (scale 4-6), PACU [facility] naloxone (NARCAN) injection 0.4 mg 12-19 16:57: 02 12-21 16:56 :02 No .4mg 0.4 mg, Slow IV Push, PRN - SEE INSTRUCTIO NS, Starting on Thu12/19/22 at 1057, Until 12/21/22 at 1156, Routine, Analgesia Recovery, PACU [facility] HYDROcodone -acetaminop hen (NORCO) 10-325 mg tablet 1 tablet 12-19 16:56: 57 Yes 1{tbl} 1 tablet, Oral, Q6HPRN, Starting on Thu12/19/22 at 1056, Until Discontinu ed, Routine, Pain (scale 7-10) [facility] diphenhydrA MINE (BENADRYL) injection 25 mg 12-19 16:56: 57 Yes 25mg 25 mg, Slow IV Push, Q6HPRN, Starting on Thu12/19/22 at 1056, Until Discontinu ed, Routine, Itching [facility] diphenhydrA MINE (BENADRYL) tablet 25 mg 12-19 16:56: 57 Yes 25mg 25 mg, Oral, Q6HPRN, Starting on Thu12/19/22 at 1056, Until Discontinu ed, Routine, Sleep, Itching [facility] simethicone (GAS RELIEF (SIMETHICON E)) chewable tablet 160 mg 12-19 16:56: 57 Yes 160mg 160 mg, Oral, PC+HSPRN, Starting on Thu12/19/22 at 1056, Until Discontinu ed, Routine, Gas [facility] docusate (COLACE) capsule 200 mg 12-19 16:56: 57 Yes 200mg 200 mg, Oral, QDAILYPRN, Starting on Thu12/19/22 at 1056, Until Discontinu ed, Routine, Constipati on [facility] lactated ringers IV infusion 1,000 mL 12-19 16:56: 57 Yes 1000mL at 125 mL/hr, 1,000 mL, IV Infusion, PRN, 1 dose, Starting on Thu12/19/22 at 1056, Until Discontinu ed, Routine [facility] acetaminoph en (TYLENOL) tablet 650 mg 12-19 12:45: 00 12-19 13:13 :00 No 650mg 650 mg, Oral, ONCE, 1 dose, On Thu12/19/22 at 0645, Routine [facility] lactated ringers IV infusion 1,000 mL 12-19 12:45: 00 12-19 16:56 :58 No 1000mL at 125 mL/hr, 1,000 mL, IV Infusion, CONTINUOUS , Starting on Thu12/19/22 at 0645, Until Thu12/19/22 at 1056, Routine [facility] ceFAZolin (ANCEF) 2,000 mg in NaCl 0.9% (NS) 100 mL MINI-BAG 12-19 12:31: 44 12-19 16:56 :58 No 2000mg 2,000 mg, IV Piggyback, O.R. HOLDING ONCE, Starting on Thu12/19/22 at 0631, Until Thu12/19/22 at 1056, Administer over 30 Minutes, 100 mL
Reas on for Anti-Infec tive: Surgical Prophylaxi s
Surgi shilpa Prophylaxi s: MOLDED GOODS SPOT PICKER
Duration of therapy: within 24 hours of surgery [facility] sodium citrate-cit neeru acid (BICITRA) 500-334 mg/5 mL solution 30 mL 12-19 12:31: 44 12-19 15:24 :00 No 30mL 30 mL, Oral, PRE-PROCED URE ONCE, 1 dose, Starting on Thu12/19/22 at 0631, Until Thu12/19/22 at 0924, Routine, Surgery/Pr ocedure [facility] azithromyci n 500 mg tablet 12-03 00:00: 00 12-04 05:59 :00 No [id number] 1000mg Take 2 tablets by mouth once now for 1 dose. [facility] No known medications 11-10 10:58: 03 No No known medication s [facility] No known medications 10-29 11:11: 30 No No known medication s [facility] No known medications 10-14 09:54: 54 No No known medication s [facility] No known medications 2021-10 10:03: 09 No No known medication s [facility] azithromyci n 500 mg tablet 2021-10 00:00: 00 08-13 04:59 :00 No [id number] 01 1000mg Take 2 tablets by mouth once now for 1 dose. [facility] metroNIDAZO LE (FLAGYL) 500 mg tablet 2021-10 00:00: 00 08-19 05:59 :00 No [id number] 9109 500mg Take 1 tablet by mouth every 12 (twelve) hours for 7 days. [facility] fluconazole (DIFLUCAN) 150 mg tablet 2021-10 00:00: 00 08-12 04:59 :00 No [id number] 9107 150mg Take 1 tablet by mouth once now for 1 dose. [facility] No known medications 2021-10 10:55: 40 No No known medication s [facility] Immunizations Ordered Immunization Name Filled Immunization Name Date Status Comments Source TDAP 2022-10-14 00:00:00 Completed [facility] TDAP 2022-10-14 00:00:00 Completed [facility] TDAP 2022-10-14 00:00:00 Completed [facility] TDAP 2022-10-14 00:00:00 Completed [facility] TDAP 2022-10-14 00:00:00 Completed [facility] TDAP 2022-10-14 00:00:00 Completed [facility] TDAP 2022-10-14 00:00:00 Completed [facility] TDAP 2022-10-14 00:00:00 Completed [facility] TDAP 2022-10-14 00:00:00 Completed [facility] TDAP 2022-10-14 00:00:00 Completed [facility] TDAP 2022-10-14 00:00:00 Completed [facility] TDAP 2022-10-14 00:00:00 Completed [facility] TDAP 2022-10-14 00:00:00 Completed [facility] TDAP 2022-10-14 00:00:00 Completed [facility] TDAP 2022-10-14 00:00:00 Completed [facility] TDAP 2022-10-14 00:00:00 Completed HEPATITIS A 2012-04-23 00:00:00 Completed [facility] HPV 2012-04-23 00:00:00 Completed [facility] Meningococcal Polysaccharide (groups A, C, Y and W-135) conjugate vaccine (MCV4P) 2012-04-23 00:00:00 Completed [facility] TDAP 2012-04-23 00:00:00 Completed [facility] HEPATITIS A 2012-04-23 00:00:00 Completed [facility] HPV 2012-04-23 00:00:00 Completed [facility] Meningococcal Polysaccharide (groups A, C, Y and W-135) conjugate vaccine (MCV4P) 2012-04-23 00:00:00 Completed [facility] TDAP 2012-04-23 00:00:00 Completed [facility] HEPATITIS A 2012-04-23 00:00:00 Completed [facility] HPV 2012-04-23 00:00:00 Completed [facility] Meningococcal Polysaccharide (groups A, C, Y and W-135) conjugate vaccine (MCV4P) 2012-04-23 00:00:00 Completed [facility] TDAP 2012-04-23 00:00:00 Completed [facility] HEPATITIS A 2012-04-23 00:00:00 Completed [facility] HPV 2012-04-23 00:00:00 Completed [facility] Meningococcal Polysaccharide (groups A, C, Y and W-135) conjugate vaccine (MCV4P) 2012-04-23 00:00:00 Completed [facility] TDAP 2012-04-23 00:00:00 [facility]pleted [facility] [facility] HEPATITIS A 2012-04-23 00:00:00 Completed [facility] HPV 2012-04-23 00:00:00 Completed [facility] Meningococcal Polysaccharide (groups A, C, Y and W-135) conjugate vaccine (MCV4P) 2012-04-23 00:00:00 Completed [facility] TDAP 2012-04-23 00:00:00 Completed [facility] HEPATITIS A 2012-04-23 00:00:00 Completed [facility] HPV 2012-04-23 00:00:00 Completed [facility] Meningococcal Polysaccharide (groups A, C, Y and W-135) conjugate vaccine (MCV4P) 2012-04-23 00:00:00 Completed [facility] TDAP 2012-04-23 00:00:00 Completed [facility] HEPATITIS A 2012-04-23 00:00:00 Completed [facility] HPV 2012-04-23 00:00:00 Completed [facility] Meningococcal Polysaccharide (groups A, C, Y and W-135) conjugate vaccine (MCV4P) 2012-04-23 00:00:00 Completed [facility] TDAP 2012-04-23 00:00:00 Completed [facility] HEPATITIS A 2012-04-23 00:00:00 Completed [facility] HPV 2012-04-23 00:00:00 Completed [facility] Meningococcal Polysaccharide (groups A, C, Y and W-135) conjugate vaccine (MCV4P) 2012-04-23 00:00:00 Completed [facility] TDAP 2012-04-23 00:00:00 Completed [facility] HEPATITIS A 2012-04-23 00:00:00 Completed [facility] HPV 2012-04-23 00:00:00 Completed [facility] Meningococcal Polysaccharide (groups A, C, Y and W-135) conjugate vaccine (MCV4P) 2012-04-23 00:00:00 Completed [facility] TDAP 2012-04-23 00:00:00 Completed [facility] HEPATITIS A 2012-04-23 00:00:00 Completed HPV 2012-04-23 00:00:00 Completed Meningococcal Polysaccharide (groups A, C, Y and W-135) conjugate vaccine (MCV4P) 2012-04-23 00:00:00 Completed TDAP 2012-04-23 00:00:00 Completed DTaP, Unspecified Formulation 2002-12-28 00:00:00 Completed [facility] MMR 2002-12-28 00:00:00 Completed [facility] IPV 2002-12-28 00:00:00 Completed [facility] DTaP, Unspecified Formulation 2002-12-28 00:00:00 Completed [facility] MMR 2002-12-28 00:00:00 Completed [facility] IPV 2002-12-28 00:00:00 Completed [facility] DTaP, Unspecified Formulation 2002-12-28 00:00:00 Completed [facility] MMR 2002-12-28 00:00:00 Completed [facility] IPV 2002-12-28 00:00:00 Completed [facility] DTaP, Unspecified Formulation 2002-12-28 00:00:00 Completed [facility] MMR 2002-12-28 00:00:00 Completed [facility] IPV 2002-12-28 00:00:00 Completed [facility] DTaP, Unspecified Formulation 2002-12-28 00:00:00 Completed [facility] MMR 2002-12-28 00:00:00 Completed [facility] IPV 2002-12-28 00:00:00 Completed [facility] DTaP, Unspecified Formulation 2002-12-28 00:00:00 Completed [facility] MMR 2002-12-28 00:00:00 Completed [facility] IPV 2002-12-28 00:00:00 Completed [facility] DTaP, Unspecified Formulation 2002-12-28 00:00:00 Completed [facility] MMR 2002-12-28 00:00:00 Completed [facility] IPV 2002-12-28 00:00:00 Completed [facility] DTaP, Unspecified Formulation 2002-12-28 00:00:00 Completed [facility] MMR 2002-12-28 00:00:00 Completed [facility] IPV 2002-12-28 00:00:00 Completed [facility] DTaP, Unspecified Formulation 2002-12-28 00:00:00 Completed [facility] MMR 2002-12-28 00:00:00 Completed [facility] IPV 2002-12-28 00:00:00 Completed [facility] DTaP, Unspecified Formulation 2002-12-28 00:00:00 Completed MMR 2002-12-28 00:00:00 Completed IPV 2002-12-28 00:00:00 Completed HEPATITIS A 2000-12-01 00:00:00 Completed [facility] Pneumococcal 7 Conjugate, PCV7 (Prevnar7) 2000-12-01 00:00:00 Completed [facility] HEPATITIS A 2000-12-01 00:00:00 Completed [facility] Pneumococcal 7 Conjugate, PCV7 (Prevnar7) 2000-12-01 00:00:00 Completed [facility] HEPATITIS A 2000-12-01 00:00:00 Completed [facility] Pneumococcal 7 Conjugate, PCV7 (Prevnar7) 2000-12-01 00:00:00 Completed [facility] HEPATITIS A 2000-12-01 00:00:00 Completed [facility] Pneumococcal 7 Conjugate, PCV7 (Prevnar7) 2000-12-01 00:00:00 Completed [facility] HEPATITIS A 2000-12-01 00:00:00 Completed [facility] Pneumococcal 7 Conjugate, PCV7 (Prevnar7) 2000-12-01 00:00:00 Completed [facility] HEPATITIS A 2000-12-01 00:00:00 Completed [facility] Pneumococcal 7 Conjugate, PCV7 (Prevnar7) 2000-12-01 00:00:00 Completed [facility] HEPATITIS A 2000-12-01 00:00:00 Completed [facility] Pneumococcal 7 Conjugate, PCV7 (Prevnar7) 2000-12-01 00:00:00 Completed [facility] HEPATITIS A 2000-12-01 00:00:00 Completed [facility] Pneumococcal 7 Conjugate, PCV7 (Prevnar7) 2000-12-01 00:00:00 Completed [facility] HEPATITIS A 2000-12-01 00:00:00 Completed [facility] Pneumococcal 7 Conjugate, PCV7 (Prevnar7) 2000-12-01 00:00:00 Completed [facility] HEPATITIS A 2000-12-01 00:00:00 Completed Pneumococcal 7 Conjugate, PCV7 (Prevnar7) 2000-12-01 00:00:00 Completed DTaP, Unspecified Formulation 2000-02-03 00:00:00 Completed [facility] Hib-HbOC 2000-02-03 00:00:00 Completed [facility] MMR 2000-02-03 00:00:00 Completed [facility] IPV 2000-02-03 00:00:00 Completed [facility] DTaP, Unspecified Formulation 2000-02-03 00:00:00 Completed [facility] Hib-HbOC 2000-02-03 00:00:00 Completed [facility] MMR 2000-02-03 00:00:00 Completed [facility] IPV 2000-02-03 00:00:00 Completed [facility] DTaP, Unspecified Formulation 2000-02-03 00:00:00 Completed [facility] Hib-HbOC 2000-02-03 00:00:00 Completed [facility] MMR 2000-02-03 00:00:00 Completed [facility] IPV 2000-02-03 00:00:00 Completed [facility] DTaP, Unspecified Formulation 2000-02-03 00:00:00 Completed [facility] Hib-HbOC 2000-02-03 00:00:00 Completed [facility] MMR 2000-02-03 00:00:00 Completed [facility] IPV 2000-02-03 00:00:00 Completed [facility] DTaP, Unspecified Formulation 2000-02-03 00:00:00 Completed [facility] Hib-HbOC 2000-02-03 00:00:00 Completed [facility] MMR 2000-02-03 00:00:00 Completed [facility] IPV 2000-02-03 00:00:00 Completed [facility] DTaP, Unspecified Formulation 2000-02-03 00:00:00 Completed [facility] Hib-HbOC 2000-02-03 00:00:00 Completed [facility] MMR 2000-02-03 00:00:00 Completed [facility] IPV 2000-02-03 00:00:00 Completed [facility] DTaP, Unspecified Formulation 2000-02-03 00:00:00 Completed [facility] Hib-HbOC 2000-02-03 00:00:00 Completed [facility] MMR 2000-02-03 00:00:00 Completed [facility] IPV 2000-02-03 00:00:00 Completed [facility] DTaP, Unspecified Formulation 2000-02-03 00:00:00 Completed [facility] Hib-HbOC 2000-02-03 00:00:00 Completed [facility] MMR 2000-02-03 00:00:00 Completed [facility] IPV 2000-02-03 00:00:00 Completed [facility] DTaP, Unspecified Formulation 2000-02-03 00:00:00 Completed [facility] Hib-HbOC 2000-02-03 00:00:00 Completed [facility] MMR 2000-02-03 00:00:00 Completed [facility] IPV 2000-02-03 00:00:00 Completed [facility] DTaP, Unspecified Formulation 2000-02-03 00:00:00 Completed Hib-HbOC 2000-02-03 00:00:00 Completed MMR 2000-02-03 00:00:00 Completed IPV 2000-02-03 00:00:00 Completed DTaP, Unspecified Formulation 1999-04-18 00:00:00 Completed [facility] Hep B, Adol or Pedi Dosage 1999-04-18 00:00:00 Completed [facility] Hib-HbOC 1999-04-18 00:00:00 Completed [facility] DTaP, Unspecified Formulation 1999-04-18 00:00:00 Completed [facility] Hep B, Adol or Pedi Dosage 1999-04-18 00:00:00 Completed [facility] Hib-HbOC 1999-04-18 00:00:00 Completed [facility] DTaP, Unspecified Formulation 1999-04-18 00:00:00 Completed [facility] Hep B, Adol or Pedi Dosage 1999-04-18 00:00:00 Completed [facility] Hib-HbOC 1999-04-18 00:00:00 Completed [facility] DTaP, Unspecified Formulation 1999-04-18 00:00:00 Completed [facility] Hep B, Adol or Pedi Dosage 1999-04-18 00:00:00 Completed [facility] Hib-HbOC 1999-04-18 00:00:00 Completed [facility] DTaP, Unspecified Formulation 1999-04-18 00:00:00 Completed [facility] Hep B, Adol or Pedi Dosage 1999-04-18 00:00:00 Completed [facility] Hib-HbOC 1999-04-18 00:00:00 Completed [facility] DTaP, Unspecified Formulation 1999-04-18 00:00:00 Completed [facility] Hep B, Adol or Pedi Dosage 1999-04-18 00:00:00 Completed [facility] Hib-HbOC 1999-04-18 00:00:00 Completed [facility] DTaP, Unspecified Formulation 1999-04-18 00:00:00 Completed [facility] Hep B, Adol or Pedi Dosage 1999-04-18 00:00:00 Completed [facility] Hib-HbOC 1999-04-18 00:00:00 Completed [facility] DTaP, Unspecified Formulation 1999-04-18 00:00:00 Completed [facility] Hep B, Adol or Pedi Dosage 1999-04-18 00:00:00 Completed [facility] Hib-HbOC 1999-04-18 00:00:00 Completed [facility] DTaP, Unspecified Formulation 1999-04-18 00:00:00 Completed [facility] Hep B, Adol or Pedi Dosage 1999-04-18 00:00:00 Completed [facility] Hib-HbOC 1999-04-18 00:00:00 Completed [facility] DTaP, Unspecified Formulation 1999-04-18 00:00:00 Completed Hep B, Adol or Pedi Dosage 1999-04-18 00:00:00 Completed Hib-HbOC 1999-04-18 00:00:00 Completed DTaP, Unspecified Formulation 1999-02-12 00:00:00 Completed [facility] Hib-HbOC 1999-02-12 00:00:00 Completed [facility] IPV 1999-02-12 00:00:00 Completed [facility] DTaP, Unspecified Formulation 1999-02-12 00:00:00 Completed [facility] Hib-HbOC 1999-02-12 00:00:00 Completed [facility] IPV 1999-02-12 00:00:00 Completed [facility] DTaP, Unspecified Formulation 1999-02-12 00:00:00 Completed [facility] Hib-HbOC 1999-02-12 00:00:00 Completed [facility] IPV 1999-02-12 00:00:00 Completed [facility] DTaP, Unspecified Formulation 1999-02-12 00:00:00 Completed [facility] Hib-HbOC 1999-02-12 00:00:00 Completed [facility] IPV 1999-02-12 00:00:00 Completed [facility] DTaP, Unspecified Formulation 1999-02-12 00:00:00 Completed [facility] Hib-HbOC 1999-02-12 00:00:00 Completed [facility] IPV 1999-02-12 00:00:00 Completed [facility] DTaP, Unspecified Formulation 1999-02-12 00:00:00 Completed [facility] Hib-HbOC 1999-02-12 00:00:00 Completed [facility] IPV 1999-02-12 00:00:00 Completed [facility] DTaP, Unspecified Formulation 1999-02-12 00:00:00 Completed [facility] Hib-HbOC 1999-02-12 00:00:00 Completed [facility] IPV 1999-02-12 00:00:00 Completed [facility] DTaP, Unspecified Formulation 1999-02-12 00:00:00 Completed [facility] Hib-HbOC 1999-02-12 00:00:00 Completed [facility] IPV 1999-02-12 00:00:00 Completed [facility] DTaP, Unspecified Formulation 1999-02-12 00:00:00 Completed [facility] Hib-HbOC 1999-02-12 00:00:00 Completed [facility] IPV 1999-02-12 00:00:00 Completed [facility] DTaP, Unspecified Formulation 1999-02-12 00:00:00 Completed Hib-HbOC 1999-02-12 00:00:00 Completed IPV 1999-02-12 00:00:00 Completed DTaP, Unspecified Formulation 1998 00:00:00 Completed [facility] Hep B, Adol or Pedi Dosage 1998 00:00:00 Completed [facility] Hib-HbOC 1998 00:00:00 Completed [facility] IPV 1998 00:00:00 Completed [facility] DTaP, Unspecified Formulation 1998 00:00:00 Completed [facility] Hep B, Adol or Pedi Dosage 1998 00:00:00 Completed [facility] Hib-HbOC 1998 00:00:00 Completed [facility] IPV 1998 00:00:00 Completed [facility] DTaP, Unspecified Formulation 1998 00:00:00 Completed [facility] Hep B, Adol or Pedi Dosage 1998 00:00:00 Completed [facility] Hib-HbOC 1998 00:00:00 Completed [facility] IPV 1998 00:00:00 Completed [facility] DTaP, Unspecified Formulation 1998 00:00:00 Completed [facility] Hep B, Adol or Pedi Dosage 1998 00:00:00 Completed [facility] Hib-HbOC 1998 00:00:00 Completed [facility] IPV 1998 00:00:00 Completed [facility] DTaP, Unspecified Formulation 1998 00:00:00 Completed [facility] Hep B, Adol or Pedi Dosage 1998 00:00:00 Completed [facility] Hib-HbOC 1998 00:00:00 Completed [facility] IPV 1998 00:00:00 Completed [facility] DTaP, Unspecified Formulation 1998 00:00:00 Completed [facility] Hep B, Adol or Pedi Dosage 1998 00:00:00 Completed [facility] Hib-HbOC 1998 00:00:00 Completed [facility] IPV 1998 00:00:00 Completed [facility] DTaP, Unspecified Formulation 1998 00:00:00 Completed [facility] Hep B, Adol or Pedi Dosage 1998 00:00:00 Completed [facility] Hib-HbOC 1998 00:00:00 Completed [facility] IPV 1998 00:00:00 Completed [facility] DTaP, Unspecified Formulation 1998 00:00:00 Completed [facility] Hep B, Adol or Pedi Dosage 1998 00:00:00 Completed [facility] Hib-HbOC 1998 00:00:00 Completed [facility] IPV 1998 00:00:00 Completed [facility] DTaP, Unspecified Formulation 1998 00:00:00 Completed [facility] Hep B, Adol or Pedi Dosage 1998 00:00:00 Completed [facility] Hib-HbOC 1998 00:00:00 Completed [facility] IPV 1998 00:00:00 Completed [facility] DTaP, Unspecified Formulation 1998 00:00:00 Completed Hep B, Adol or Pedi Dosage 1998 00:00:00 Completed Hib-HbOC 1998 00:00:00 Completed IPV 1998 00:00:00 Completed Hep B, Adol or Pedi Dosage 1998 00:00:00 Completed [facility] Hep B, Adol or Pedi Dosage 1998 00:00:00 Completed [facility] Hep B, Adol or Pedi Dosage 1998 00:00:00 Completed [facility] Hep B, Adol or Pedi Dosage 1998 00:00:00 Completed [facility] Hep B, Adol or Pedi Dosage 1998 00:00:00 Completed [facility] Hep B, Adol or Pedi Dosage 1998 00:00:00 Completed [facility] Hep B, Adol or Pedi Dosage 1998 00:00:00 Completed [facility] Hep B, Adol or Pedi Dosage 1998 00:00:00 Completed [facility] Hep B, Adol or Pedi Dosage 1998 00:00:00 Completed [facility] Hep B, Adol or Pedi Dosage 1998 00:00:00 Completed Hep B, Adol or Pedi Dosage Unknown Completed [facility] Hib-HbOC Unknown Completed [facility] HPV Unknown Completed [facility] Meningococcal Polysaccharide (groups A, C, Y and W-135) conjugate vaccine (MCV4P) Unknown Completed [facility] MMR Unknown Completed [facility] Pneumococcal 7 Conjugate, PCV7 (Prevnar7) Unknown Completed [facility] IPV Unknown Completed [facility] TDAP Unknown Completed [facility] DTaP, Unspecified Formulation Unknown Completed [facility] HEPATITIS A Unknown Completed [facility] Hep B, Adol or Pedi Dosage Unknown Completed [facility] Hib-HbOC Unknown Completed [facility] HPV Unknown Completed [facility] Meningococcal Polysaccharide (groups A, C, Y and W-135) conjugate vaccine (MCV4P) Unknown Completed [facility] MMR Unknown Completed [facility] Pneumococcal 7 Conjugate, PCV7 (Prevnar7) Unknown Completed [facility] IPV Unknown Completed [facility] TDAP Unknown Completed [facility] DTaP, Unspecified Formulation Unknown Completed [facility] HEPATITIS A Unknown Completed [facility] Vital Signs Vital Name Observation Time Observation Value Comments S ource Systolic blood pressure 2024-09-12 18:00:00 125 mm[Hg] [facility] Diastolic blood pressure 2024-09-12 18:00:00 75 mm[Hg] [facility] Heart rate 2024-09-12 18:00:00 90 /min [facility] Respiratory rate 2024-09-12 18:00:00 16 /min [facility] Oxygen saturation in Arterial blood by Pulse oximetry 2024-09-12 18:00:00 100 /min [facility] Body temperature 2024-09-12 01:15:00 37.28 Suad [facility] Body height 2024-09-11 06:58:00 162.6 cm [facility] Body weight 2024-09-11 06:58:00 76.885 kg [facility] BMI 2024-09-11 06:58:00 29.09 kg/m2 [facility] Systolic blood pressure 2024-09-11 07:30:00 137 mm[Hg] [facility] Diastolic blood pressure 2024-09-11 07:30:00 85 mm[Hg] [facility] Heart rate 2024-09-11 07:30:00 96 /min [facility] Oxygen saturation in Arterial blood by Pulse oximetry 2024-09-11 07:30:00 100 /min [facility] Body temperature 2024-09-11 07:09:00 36.72 Suad [facility] Body height 2024-09-11 06:58:00 162.6 cm [facility] Body weight 2024-09-11 06:58:00 76.885 kg [facility] BMI 2024-09-11 06:58:00 29.09 kg/m2 [facility] Systolic blood pressure 2024-09-06 20:57:00 124 mm[Hg] [facility] Diastolic blood pressure 2024-09-06 20:57:00 75 mm[Hg] [facility] Heart rate 2024-09-06 20:57:00 99 /min [facility] Body temperature 2024-09-06 20:57:00 36.67 Suad [facility] Respiratory rate 2024-09-06 20:57:00 17 /min [facility] Body height 2024-09-06 20:57:00 157.5 cm [facility] Body weight 2024-09-06 20:57:00 77.792 kg [facility] BMI 2024-09-06 20:57:00 31.37 kg/m2 [facility] Diastolic blood pressure 2024-08-31 00:30:00 64 mm[Hg] [facility] Heart rate 2024-08-31 00:30:00 100 /min [facility] Oxygen saturation in Arterial blood by Pulse oximetry 2024-08-31 00:30:00 100 /min [facility] Systolic blood pressure 2024-08-31 00:30:00 117 mm[Hg] [facility] Respiratory rate 2024-08-31 00:00:00 16 /min [facility] Body temperature 2024-08-30 20:00:00 36.28 Suad [facility] Body height 2024-08-30 20:00:00 157.5 cm [facility] Body weight 2024-08-30 20:00:00 77.565 kg [facility] BMI 2024-08-30 20:00:00 31.28 kg/m2 [facility] Systolic blood pressure 2024-08-29 20:51:00 111 mm[Hg] [facility] Diastolic blood pressure 2024-08-29 20:51:00 75 mm[Hg] [facility] Heart rate 2024-08-29 20:51:00 106 /min [facility] Body temperature 2024-08-29 20:51:00 36.44 Suad [facility] Respiratory rate 2024-08-29 20:51:00 18 /min [facility] Body height 2024-08-29 20:51:00 154.9 cm [facility] Body weight 2024-08-29 20:51:00 77.61 kg [facility] BMI 2024-08-29 20:51:00 32.33 kg/m2 [facility] Systolic blood pressure 2024-08-23 19:52:00 124 mm[Hg] [facility] Diastolic blood pressure 2024-08-23 19:52:00 77 mm[Hg] [facility] Heart rate 2024-08-23 19:52:00 104 /min [facility] Body temperature 2024-08-23 19:52:00 36.39 Suad [facility] Respiratory rate 2024-08-23 19:52:00 16 /min [facility] Body height 2024-08-23 19:52:00 154.9 cm [facility] Body weight 2024-08-23 19:52:00 76.25 kg [facility] BMI 2024-08-23 19:52:00 31.76 kg/m2 [facility] Systolic blood pressure 2022-12-26 15:21:00 139 mm[Hg] [facility] Diastolic blood pressure 2022-12-26 15:21:00 85 mm[Hg] [facility] Heart rate 2022-12-26 15:21:00 71 /min [facility] Body temperature 2022-12-26 15:21:00 36.28 Suad [facility] Respiratory rate 2022-12-26 15:21:00 17 /min [facility] Body height 2022-12-26 15:21:00 154.9 cm [facility] Body weight 2022-12-26 15:21:00 80.06 kg [facility] BMI 2022-12-26 15:21:00 33.35 kg/m2 [facility] Systolic blood pressure 2022-12-20 10:02:00 113 mm[Hg] [facility] Diastolic blood pressure 2022-12-20 10:02:00 77 mm[Hg] [facility] [facility] Heart rate 2022-12-20 10:02:00 92 /min [facility] Body temperature 2022-12-20 10:02:00 36.61 Suad [facility] Respiratory rate 2022-12-20 10:02:00 20 /min [facility] Oxygen saturation in Arterial blood by Pulse oximetry 2022-12-20 10:02:00 98 /min [facility] Body height 2022-12-19 12:30:00 154.9 cm [facility] Body weight 2022-12-19 12:30:00 86.637 kg [facility] BMI 2022-12-19 12:30:00 36.09 kg/m2 [facility] Heart rate 2022-12-19 15:00:00 93 /min [facility] Oxygen saturation in Arterial blood by Pulse oximetry 2022-12-19 15:00:00 100 /min [facility] Respiratory rate 2022-12-19 14:00:00 18 /min [facility] Systolic blood pressure 2022-12-19 13:15:00 104 mm[Hg] [facility] Diastolic blood pressure 2022-12-19 13:15:00 76 mm[Hg] [facility] Body height 2022-12-19 12:30:00 154.9 cm [facility] Body weight 2022-12-19 12:30:00 86.637 kg [facility] BMI 2022-12-19 12:30:00 36.09 kg/m2 [facility] Systolic blood pressure 2022-12-17 15:54:00 122 mm[Hg] [facility] Diastolic blood pressure 2022-12-17 15:54:00 81 mm[Hg] [facility] Heart rate 2022-12-17 15:54:00 99 /min [facility] Body temperature 2022-12-17 15:54:00 36.44 Suad [facility] Respiratory rate 2022-12-17 15:54:00 18 /min [facility] Body height 2022-12-17 15:54:00 154.9 cm [facility] Body weight 2022-12-17 15:54:00 87.454 kg [facility] BMI 2022-12-17 15:54:00 36.43 kg/m2 [facility] Systolic blood pressure 2022-12-08 15:28:00 120 mm[Hg] [facility] Diastolic blood pressure 2022-12-08 15:28:00 73 mm[Hg] [facility] Heart rate 2022-12-08 15:28:00 81 /min [facility] Body temperature 2022-12-08 15:28:00 35.5 Suad [facility] Respiratory rate 2022-12-08 15:28:00 18 /min [facility] Body height 2022-12-08 15:28:00 154.9 cm Univ [facility] Body weight 2022-12-08 15:28:00 86.138 kg Univ [facility] BMI 2022-12-08 15:28:00 35.88 kg/m2 [facility] Systolic blood pressure 2022-12-01 15:54:00 127 mm[Hg] [facility] Diastolic blood pressure 2022-12-01 15:54:00 70 mm[Hg] [facility] Body temperature 2022-12-01 15:54:00 35.44 Suad [facility] Respiratory rate 2022-12-01 15:54:00 18 /min [facility] Body height 2022-12-01 15:54:00 154.9 cm [facility] Body weight 2022-12-01 15:54:00 86.546 kg [facility] BMI 2022-12-01 15:54:00 36.05 kg/m2 [facility] Systolic blood pressure 2022-11-24 15:53:00 120 mm[Hg] [facility] Diastolic blood pressure 2022-11-24 15:53:00 81 mm[Hg] [facility] Heart rate 2022-11-24 15:53:00 107 /min [facility] Body temperature 2022-11-24 15:53:00 35.89 Suad [facility] Respiratory rate 2022-11-24 15:53:00 18 /min [facility] Body height 2022-11-24 15:53:00 154.9 cm Univ [facility] Body weight 2022-11-24 15:53:00 86.138 kg Univ [facility] BMI 2022-11-24 15:53:00 35.88 kg/m2 [facility] Systolic blood pressure 2022-11-10 16:41:00 132 mm[Hg] [facility] Diastolic blood pressure 2022-11-10 16:41:00 77 mm[Hg] [facility] Heart rate 2022-11-10 16:41:00 91 /min [facility] Body temperature 2022-11-10 16:41:00 36.06 Suad [facility] Respiratory rate 2022-11-10 16:41:00 18 /min [facility] Body height 2022-11-10 16:41:00 154.9 cm [facility] Body weight 2022-11-10 16:41:00 86.365 kg [facility] BMI 2022-11-10 16:41:00 35.98 kg/m2 [facility] Systolic blood pressure 2022-10-29 15:31:00 126 mm[Hg] [facility] Diastolic blood pressure 2022-10-29 15:31:00 76 mm[Hg] [facility] Heart rate 2022-10-29 15:31:00 100 /min [facility] Body temperature 2022-10-29 15:31:00 36.22 Suad [facility] Respiratory rate 2022-10-29 15:31:00 18 /min [facility] Body height 2022-10-29 15:31:00 154.9 cm [facility] Body weight 2022-10-29 15:31:00 87.227 kg [facility] BMI 2022-10-29 15:31:00 36.33 kg/m2 [facility] Systolic blood pressure 2022-10-14 15:01:00 114 mm[Hg] [facility] Diastolic blood pressure 2022-10-14 15:01:00 76 mm[Hg] [facility] Heart rate 2022-10-14 15:01:00 89 /min [facility] Body temperature 2022-10-14 15:01:00 36.17 Suad [facility] Respiratory rate 2022-10-14 15:01:00 18 /min [facility] Body height 2022-10-14 15:01:00 154.9 cm [facility] Body weight 2022-10-14 15:01:00 84.454 kg [facility] BMI 2022-10-14 15:01:00 35.18 kg/m2 [facility] Body weight 2022-09-03 15:19:00 86.047 kg [facility] BMI 2022-09-03 15:19:00 35.84 kg/m2 [facility] Systolic blood pressure 2022-09-03 15:19:00 127 mm[Hg] [facility] Diastolic blood pressure 2022-09-03 15:19:00 76 mm[Hg] [facility] Heart rate 2022-09-03 15:19:00 89 /min [facility] Body temperature 2022-09-03 15:19:00 36.61 Suad [facility] Respiratory rate 2022-09-03 15:19:00 17 /min [facility] Body height 2022-09-03 15:19:00 154.9 cm [facility] Systolic blood pressure 2022-08-09 14:42:00 120 mm[Hg] [facility] Diastolic blood pressure 2022-08-09 14:42:00 85 mm[Hg] [facility] Heart rate 2022-08-09 14:42:00 97 /min [facility] Body temperature 2022-08-09 14:42:00 37 Suad [facility] Respiratory rate 2022-08-09 14:42:00 20 /min [facility] Body height 2022-08-09 14:42:00 154.9 cm [facility] Body weight 2022-08-09 14:42:00 84.641 kg [facility] BMI 2022-08-09 14:42:00 35.26 kg/m2 [facility] Procedures Procedure Date / Time Performed Performing Clinician Source CBC WITH DIFF 2024-09-12 18:07:00 Trudy Sheffield [facility] CBC WITH DIFF 2024-09-12 18:07:00 Trudy Sheffield [facility] CBC WITH DIFF 2024-09-12 10:47:00 Lucio-Simmons [facility] CBC WITH DIFF 2024-09-12 10:47:00 [facility] 2024-09-11 08:20:00 Lucio-Simmons, [facility] isol [facility] SALPINGECTOMY 2024-09-11 08:20:00 Lucio-Simmons, [facility] SECTION 2024-09-11 08:20:00 Lucio-Simmons, [facility] SALPINGECTOMY 2024-09-11 08:20:00 Lucio-Simmons, [facility] CBC WITH DIFF 2024-09-11 07:57:00 Lucio-Simmons, [facility] HEPATITIS B SURFACE ANTIGEN 2024-09-11 07:57:[address] [facility] HB ABO GROUPING 2024-09-11 07:57:00 Lucio-Simmons, [facility] RHO (D) IMMUNE GLOBULIN 2024-09-11 07:57:00 [facility] ADC OR [facility] ONLY - RPR 2024-09-11 07:57:[address] [facility] HIV 1/2 AG-AB WITH REFLEX 2024-09-11 07:57:[address] [facility] CBC WITH DIFF 2024-09-11 07:57:00 Lucio-Simmons, [facility] HEPATITIS B SURFACE ANTIGEN 2024-09-11 07:57:[address] [facility] HB ABO GROUPING 2024-09-11 07:57:00 Lucio-Simmons [facility] RHO (D) IMMUNE GLOBULIN 2024-09-11 07:57:00 [facility] ADC [facility] ONLY - RPR 2024-09-11 07:57:00 Lucio-Simmons, Porsha [facility] HIV 1/2 AG-AB WITH REFLEX 2024-09-11 07:57:[address] [facility] POCT URINALYSIS 2024-09-06 21:00:00 Rosa Maria Baez [facility] US PELVIS > 14 WEEKS 2024-08-30 22:33:33 Trudy Sheffield [facility] AMYLASE 2024-08-30 20:25:00 Trudy Sheffield [facility] LIPASE 2024-08-30 20:25:00 Trudy Sheffield [facility] COMP. METABOLIC PANEL (28099) 2024-08-30 20:25:00 Trudy Sheffield [facility] URINE DRUG (IMMUNOASSAY) - COMPREHENSIVE DRUG SCREEN 2024-08-30 20:25:00 Trudy Sheffield [facility] CBC WITH DIFF 2024-08-30 20:25:00 Trudy Sheffield [facility] URINALYSIS 2024-08-30 20:25:00 Trudy Sheffield [facility] HEPATITIS B SURFACE ANTIGEN 2024-08-30 20:25:00 Trudy Sheffield [facility] HB ABO GROUPING 2024-08-30 20:25:00 [facility]-AB WITH REFLEX 2024-08-30 20:25:00 Trudy Sheffield [facility] POCT SARS-COV-2 ANTIGEN (BINAX NOW) 2024-08-29 21:15:00 Sherley Vogel [facility] POCT MOLECULAR STREP 2024-08-29 21:14:00 Logan Vogel [facility] POCT URINALYSIS 2024-08-29 20:57:00 Rosa Maria Baez [facility] POCT TEST 2024-08-23 19:51:00 Hernan Baez [facility] POCT URINALYSIS W/O SPECIFIC GRAVITY 2024-08-23 19:51:00 Rosa Maria Baez [facility] CBC WITH DIFF 2022-12-20 10:16:00 Lois Ivy [facility] CBC WITH DIFF 2022-12-20 10:16:00 Lois Ivy [facility] VENOUS CORD GAS 2022-12-19 16:22:00 Miroslava Reyes [facility] VENOUS CORD GAS 2022-12-19 16:22:00 Miroslava Reyes [facility] SECTION 2022-12-19 15:15:00 Cyndy Whitman [facility] CBC WITH DIFF 2022-12-19 12:41:00 Miroslava Reyes [facility] HEPATITIS B SURFACE ANTIGEN 2022-12-19 12:41:00 Miroslava Reyes [facility] HB ABO GROUPING 2022-12-19 12:41:00 Miroslava Reyes [facility] HIV 1/2 AG-AB WITH REFLEX 2022-12-19 12:41:00 Miroslava Reyes [facility] SYPHILIS IGG/IGM 2022-12-19 12:41:00 Miroslava Reyes [facility] CBC WITH DIFF 2022-12-19 12:41:00 Miroslava Reyes [facility] HEPATITIS B SURFACE ANTIGEN 2022-12-19 12:41:00 Miroslava Reyes [facility] HB ABO GROUPING 2022-12-19 12:41:00 Miroslava Reyes [facility] HIV 1/2 AG-AB WITH REFLEX 2022-12-19 12:41:00 Miroslava Reyes [facility] SYPHILIS IGG/IGM 2022-12-19 12:41:00 Miroslava Reyes [facility] POCT URINALYSIS 2022-12-17 17:42:00 Rosa Maria Baez [facility] POCT URINALYSIS 2022-12-01 15:56:00 Rosa Maria Baez [facility] POCT URINALYSIS 2022-11-24 15:58:00 Rosa Maria Baez [facility] POCT URINALYSIS 2022-11-10 16:47:00 Rosa Maria Baez [facility] EXTERNAL PROVIDER RECORDS 2022-10-31 06:01:00 Doctor Unassigned, [place] [facility] TDAP VACCINE, >11 YRS, IM 2022-10-14 15:22:28 Rosa Maria Baez [facility] POCT URINALYSIS 2022-10-14 15:03:00 Rosa Maria Baez [facility] GC & CHLAMYDIA AMPLIFIED ASSAY 2022-09-03 17:12:00 Sherley Vogel [facility] POCT URINALYSIS W/O SPECIFIC GRAVITY 2022-09-03 00:00:00 Sherley Vogel [facility] POCT TEST 2022-08-09 14:40:00 Aniyah Moe [facility] POCT URINALYSIS W/O SPECIFIC GRAVITY 2022-08-09 00:00:00 Sierra Moe [facility] Encounters Start Date/Time End Date/Time Encounter Type Admission Type Attending [facility] Facility Care Department Encounter ID Source 2024-08-30 19:42:10 Outpatient P SAPPHIRE MUNOZ [facility] SARAI [id number] [facility] 2024-09-27 10:00:00 2024-09-27 10:00:00 Outpatient R [facility] [id number] [facility] 2024-09-14 10:30:00 2024-09-14 10:30:00 Outpatient P [facility] [id number] [facility] 2024-09-11 00:56:00 2024-09-12 15:55:00 Inpatient X LUCIO-KAYA S PORSHA SRIDHAR BLANKENSHIPSOL [facility] SARAI [id number] [facility] 2024-09-11 00:56:00 2024-09-12 15:55:00 Hospital Encounter Ashwini-Sridhar Mooneysol [facility] 1.2.840.114 350.1.13.10 4.2.7.2.686 [id number] [facility] 2024-08-29 00:00:00 2024-09-12 08:00:27 Telephone FlavianailaRosa Maria russo [facility] [employer] [facility] & CHILD [facility] 1.2.840.114 350.1.13.10 4.2.7.2.686 [id number] [facility] 2024-09-11 02:30:00 2024-09-11 04:00:00 Surgery Rodrigo cameron Porsha [facility] AT [facility] 1.84.114 350.1.13.10 4.2.7.2.686 [id number] [facility] 2024-09-06 14:45:00 2024-09-06 15:20:07 Outpatient R ROSA MARIA BAEZ [facility] [id number] [facility] 2024-09-06 14:45:00 2024-09-06 15:20:07 Routine Visit Rosa Maria Baez [facility] [employer] [facility] & CHILD [facility] 1.840.114 350.1.13.10 4.2.7.2.686 [id number] 107 [id number] [facility] 2024-08-30 13:50:00 2024-08-30 19:31:00 Outpatient P ASHWINI-KAYA S, PORSHA ASHWINI-KAYA S PORSHA [facility] [id number] [facility] 2024-08-30 13:50:00 2024-08-30 19:31:00 Hospital Encounter Sridhar Blankenshipsol [facility] AT [facility] 1.2840.114 350.1.13.10 4.2.7.2.686 [id number] [facility] 2024-08-30 17:47:07 2024-08-30 17:47:07 Anesthesia Event Sapphire Munoz [facility] 1.2.840.114 350.1.13.10 4.2.7.2.686 [id number] [facility] 2024-08-30 00:00:00 2024-08-30 13:51:49 Nurse Triage Cinthya Engle Rebecca L [facility] AT [facility] 1.2840.114 350.1.13.10 4.2.7.2.686 [id number] [facility] 2024-08-29 14:45:00 2024-08-29 15:47:54 Outpatient R SHERLEY VOGEL [facility] [id number] [facility] 2024-08-29 14:45:00 2024-08-29 15:47:54 Routine Visit Sherley Vogel [facility] [employer] [facility] CHILD [facility] 1.2840.114 350.1.13.10 4.2.7.2.686 [id number] 107 [id number] [facility] 2024-08-23 00:00:00 2024-08-25 10:04:07 Refill Rosa Maria Baez [facility] [employer] [facility] CHILD [facility] 1.2840.114 350.1.13.10 4.2.7.2.686 [id number] 107 [id number] [facility] 2024-08-24 00:00:00 2024-08-24 16:42:50 Abstract Rosa Maria Baez [facility] [employer] [facility] CHILD [facility] 1.2840.114 350.1.13.10 4.2.7.2.686 [id number] 107 [id number] [facility] 2024-08-24 00:00:00 2024-08-24 14:53:11 Telephone Rosa Maria Baez [facility] [employer] [facility] CHILD [facility] 1.2840.114 350.1.13.10 4.2.7.2.686 [id number] 107 [id number] [facility] 2024-08-23 13:45:00 2024-08-23 15:21:54 Initial Visit Rosa Maria Baez NDESTEFANIA [employer] [facility] .840.114 350.1.13.10 4.2.7.2.686 [id number] 107 [id number] [facility] 2024-08-23 13:15:00 2024-08-23 13:44:16 Outpatient R ROSA MARIA BAEZ [facility] [id number] [facility] 2023-05-11 10:00:00 2023-05-11 10:00:00 Outpatient R AUSTIN CERDA [facility] [id number] [facility] 2023-03-25 09:30:00 2023-03-25 09:30:00 Outpatient R ROSA MARIA BAEZ [facility] [id number] [facility] 2023-01-28 15:00:00 2023-01-28 15:00:00 Outpatient R ROSA MARIA BAEZ [facility] [id number] [facility] 2023-01-01 00:00:00 2023-01-01 00:00:00 Refill Rosa Maria Baez [facility] [employer] [facility] CHILD [facility] 840.114 350.1.13.10 4.2.7.2.686 [id number] 107 [id number] [facility] 2022-12-26 10:30:00 2022-12-26 10:45:00 Nurse Visit Visit, Hang-Rmchp Nurse Rosa Maria Baez [facility] [employer] [facility] CHILD [facility] .840.114 350.1.13.10 4.2.7.2.686 [id number] 107 [id number] [facility] 2022-12-26 10:30:00 2022-12-26 10:30:00 Outpatient R ROSA MARIA BAEZ [facility] [id number] [facility] 2022-12-19 06:00:00 2022-12-20 16:06:00 Inpatient P ESTER GUONEHEMIASJeannette Cameron [facility] [id number] [facility] 2022-12-19 06:00:00 2022-12-20 16:06:00 Hospital En[facility].840.114 350.1.13.10 4.2.7.2.686 [id number] [facility] 2022-12-19 07:30:00 2022-12-19 09:12:00 [facility] 1.2.840.114 350.1.13.10 4.2.7.2.686 [id number] [facility] 2022-12-17 09:45:00 2022-12-17 10:14:40 Outpatient R ROSA MARIA BAEZ [facility] [id number] [facility] 2022-12-17 09:45:00 2022-12-17 10:14:40 Routine Visit Rosa Maria Baez [facility] [employer] [facility] 1..840.114 350.1.13.10 4.2.7.2.686 [id number] 107 [id number] [facility] 2022-12-15 09:45:00 2022-12-15 09:45:00 Outpatient R ROSA MARIA BAEZ [facility] [id number] [facility] 2022-12-08 09:30:00 2022-12-08 09:48:26 Outpatient R ROSA MARIA BAEZ [facility] [id number] [facility] 2022-12-08 09:30:00 2022-12-08 09:48:26 Routine Visit Rosa Maria Baez [employer] [facility] 1.2.840.114 350.1.13.10 4.2.7.2.686 [id number] [facility] 2022-12-03 00:00:00 2022-12-03 00:00:00 Telephone Rosa Maria Baez NDESTEFANIA [employer] [facility] CHILD [facility] 1.2.840.114 350.1.13.10 4.2.7.2.686 [id number] 107 [id number] [facility] 2022-12-03 00:00:00 2022-12-03 00:00:00 Telephone Rosa Maria Baez NDESTEFANIA [employer] [facility] CHILD [facility] 1.2.840.114 350.1.13.10 4.2.7.2.686 [id number] [facility] 2022-12-03 00:00:00 2022-12-03 00:00:00 Patient Secure Msg Rosa Maria Baez [facility] [employer] [facility] & CHILD [facility] 1.2.840.114 350.1.13.10 4.2.7.2.686 [id number] [facility] 2022-12-01 09:45:00 2022-12-01 10:27:50 Outpatient R ROSA MARIA BAEZ [facility] [id number] [facility] 2022-12-01 09:45:00 2022-12-01 10:27:50 Routine Visit Rosa Maria Baez NDESTEFANIA [employer] [facility] CHILD [facility] 1.2.840.114 350.1.13.10 4.2.7.2.686 [id number] 107 [id number] [facility] 2022-11-24 09:45:00 2022-11-24 10:14:07 Outpatient R ROSA MARIA BAEZ [facility] [id number] [facility] 2022-11-24 09:45:00 2022-11-24 10:14:07 Routine Visit Rosa Maria Baez [facility] [employer] [facility] CHILD [facility] 1.0.114 350.1.13.10 4.2.7.2.686 [id number] 107 [id number] [facility] 2022-11-20 15:45:00 2022-11-20 15:45:00 Outpatient R ROSA MARIA BAEZ [facility] [id number] [facility] 2022-11-19 00:00:00 2022-11-19 00:00:00 Telephone Rosa Maria Baez [facility] [employer] [facility] CHILD [facility] 1.0.114 350.1.13.10 4.2.7.2.686 [id number] 107 [id number] [facility] 2022-11-19 00:00:00 2022-11-19 00:00:00 Patient Secure Msg Rosa Maria Baez [facility] [employer] [facility] & CHILD [facility] 1..114 350.1.13.10 4.2.7.2.686 [id number] 107 [id number] [facility] 2022-11-10 10:45:00 2022-11-10 11:00:47 Outpatient R ROSA MARIA BAEZ [facility] [id number] [facility] 2022-11-10 10:45:00 2022-11-10 11:00:47 Routine Visit Rosa Maria Baez [facility] [employer] [facility] CHILD [facility] 1..114 350.1.13.10 4.2.7.2.686 [id number] 107 [id number] [facility] 2022-10-31 00:00:00 2022-10-31 00:00:00 Orders Only Doctor Unassigned, [place] [facility] 1..114 [id number] [id number] [id number] [facility] 2022-10-29 10:45:00 2022-10-29 10:45:00 Routine Visit Rosa Maria Baez [facility] [employer] [facility] [id number] [id number] [id number] [id number] [facility] 2022-10-29 10:45:00 2022-10-29 10:43:04 Outpatient R FLA[facility]AMAUREENROSA [facility] [id number] [facility] 2022-10-14 09:00:00 2022-10-14 09:52:07 Outpatient R FLAVIANAILAMAUREENROSA [facility] [id number] [facility] 2022-10-14 09:00:00 2022-10-14 09:52:07 Routine Visit Nelson Baezilola Alison [facility] [employer] [facility] 1[facility]0.114 350.1.13.10 4.2.7.2.686 [id number] [facility] 2022-10-07 00:00:00 2022-10-07 00:00:00 Telephone Nestor Rosa Maria Alison [facility] [employer] [facility] & CHILD [facility] 1.2840.114 350.1.13.10 4.2.7.2.686 [id number] [facility] 2022-10-01 09:45:00 2022-10-01 09:45:00 Outpatient R ROSA MARIA BAEZ [facility] [id number] [facility] 2022-09-26 09:45:00 2022-09-26 11:00:00 Specialty Foods Cook Visit Ultrasound, Godwin Parker [facility] [employer] [facility] & CHILD [facility] 1.2.840.114 350.1.13.10 4.2.7.2.686 [id number] [facility] 2022-09-26 09:45:00 2022-09-26 09:45:00 Outpatient GODWIN LOPEZ SANGEETA [facility] [id number] [facility] 2022-09-26 00:00:00 2022-09-26 00:00:00 Abstract Rosa Maria Baez [facility] [employer] [facility] & CHILD [facility] 1..840.114 350.1.13.10 4.2.7.2.686 [id number] [facility] 2022-09-03 09:00:00 2022-09-03 10:17:57 Outpatient SHERLEY BAKER [facility] [id number] [facility] 2022-09-03 09:00:00 2022-09-03 10:17:57 Routine Visit Provider, Oswaldo Mclean [facility] [employer] [facility] CHILD [facility] 1..840.114 350.1.13.10 4.2.7.2.686 [id number] [facility] 2022-08-20 00:00:00 2022-08-20 00:00:00 Telephone Sherley Vogel [facility] 1..840.114 350.1.13.10 4.2.7.2.686 [id number] [facility] 2022-08-13 00:00:00 2022-08-13 00:00:00 Case Management Sherley Vogel [facility] 1.2.840.114 350.1.13.10 4.2.7.2.686 [id number] [facility] 2022-08-12 00:00:00 2022-08-12 00:00:00 Telephone Provider, Deepali Perez [facility] [employer] [facility]ILD [facility] 1.2.840.114 350.1.13.10 4.2.7.2.686 [id number] [facility] 2022-08-12 00:00:00 2022-08-12 00:00:00 Telephone Sierra Moe [facility] [employer] [facility] & CHILD [facility] 1.2.840.114 350.1.13.10 4.2.7.2.686 [id number] [facility] 2022-08-11 00:00:00 2022-08-11 00:00:00 [facility] [employer] [facility] CHILD [facility] 1.2.840.114 350.1.13.10 4.2.7.2.686 [id number] [facility] 2022-08-11 00:00:00 2022-08-11 00:00:00 [facility] [employer] [facility]ILD [facility] 1.2.840.114 350.1.13.10 4.2.7.2.686 [id number] [facility] 2022-08-09 10:00:00 2022-08-09 10:50:58 Initial Visit Provider, Sierra Sutton [facility] [employer] [facility] CHILD [facility] 1.2.840.114 350.1.13.10 4.2.7.2.686 [id number] [facility] 2022-08-09 10:00:00 2022-08-09 10:50:58 Outpatient R SIERRA MOE [facility] [id number] [facility] Results Test Description Test Time Test Comments Results Result Co mments Source [facility] [id number] 10:57:00* Test Item Value Reference Range Interpretation Comme nts WBC (test code = 6690-2) 11.19 4.30-11.10 H RBC (test code = 789-8) 2.88 3.93-5.25 L HGB (test code = 718-7) 7.1 g/dL 11.6-15.0 L HCT (test code = 4544-3) 22.3 % 35.7-45.2 L MCV (test code = 787-2) 77.4 fL 80.6-95.5 L MCH (test code = 785-6) 24.7 pg 25.9-32.8 L MCHC (test code = 786-4) 31.8 g/dL 31.6-35.1 RDW-SD (test code = 91137-0) 43.1 fL 39.0-49.9 RDW-CV (test code = 788-0) 15.6 % 12.0-15.5 H PLT (test code = 777-3) 244 166-358 MPV (test code = 39898-1) 10.7 fL 9.5-12.9 NRBC/100 WBC (test code = 1629531992) 0.0 0.0-10.0 NRBC x10^3 (test code = 9528333729) See_Comment [Automated messa ge] The system which generated this result transmitted reference range: 10*3/?L. The reference range was not used to interpret this result as normal/abnormal. GRAN MAT (NEUT) % (test code = 770-8) 74.0 % IMM GRAN % (test code = 4627774340) 0.80 % LYMPH % (test code = 736-9) 16.0 % MONO % (test code = 5905-5) 7.6 % EOS % (test code = 713-8) 1.4 % BASO % (test code = 706-2) 0.2 % GRAN MAT x10^3(ANC) (test code = 6103292442) 8.28 10*3/uL 1.88-7.09 H IMM GRAN x10^3 (test code = 9788769722) 0.09 10*3/uL 0.00-0.06 H LYMPH x10^3 (test code = 731-0) 1.79 10*3/uL 1.32-3.29 MONO x10^3 (test code = 742-7) 0.85 10*3/uL 0.33-0.92 EOS x10^3 (test code = 711-2) 0.16 10*3/uL 0.03-0.39 BASO x10^3 (test code = 704-7) 0.01-0.07 Lab Interpretation (test code = 75260-7) Abnormal [facility] OR [place] ONLY - [id number] 09:08:17* Test Item Value Reference Range Interpretation Comme nts RPR (Qualitative) (test code = 06905-5) Nonreactive Nonreactive Lab Interpretation (test cod e = 84287-5) Normal [facility] OR [place] ONLY - [id number] 09:08:17* Test Item Value Reference Range Interpretation Comme nts RPR (Qualitative) (test code = 01200-3) Nonreactive Nonreactive Lab Interpretation (test cod e = 72171-5) Normal [facility] B Surface Rnhiiuw1682-22-12 17:45:21 * Test Item Value Reference Range Interpretation Comme nts HBsAg Semi-Quantitative (mahamed t code = 5195-3) 0.08 Negative [facility] B Surface [id number] 17:45:21 * Test Item Value Reference Range Interpretation Comme nts HBsAg Semi-Quantitative (mahamed t code = 5195-3) 0.08 Negative [facility] (D) IMMUNE [id number] 15:48:52* Test Item Value Reference Range Interpretation Comme nts RHIG CANDIDATE? (test code = 5188) No- see comment Patient is not a candidate for RhIg- Patient is Rh Positive.Performed at [facility] Laboratory Services - [facility] Blood [address] [place] [id number] Free: [phone] No. [id number] [facility] (D) IMMUNE [id number] 15:48:52* Test Item Value Reference Range Interpretation Comme nts RHIG CANDIDATE? (test code = 5188) No- see comment Patient is not a candidate for RhIg- Patient is Rh Positive.Performed at [facility] Laboratory Services - [facility] Blood [address] [place] [phone] Free: [phone] No. [id number] [facility] Ag-Ab with [id number] 11:00:51* Test Item Value Reference Range Interpretation Comme nts HIV Semi-quantitative (test code = 69258-8) 0.18 Negative JAYSON (test code = JAYSON) Non-reactive for HIV-1 antigen and HIV-1/HIV-2 antibodies. ?No laboratory evidence of HIV infection. ?Repeat in 2-4 weeks if acute HIV infection is suspected. [facility] 1/2 Ag-Ab with [id number] 11:00:51* Test Item Value Reference Range Interpretation Comme nts HIV Semi-quantitative (test code = 80893-0) 0.18 Negative JAYSON (test code = JAYSON) Non-reactive for HIV-1 antigen and HIV-1/HIV-2 antibodies. ?No laboratory evidence of HIV infection. ?Repeat in 2-4 weeks if acute HIV infection is suspected. [facility] with Rgkzyfyioxan0177-17-19 08:34:41* Test Item Value Reference Range Interpretation Comme nts WBC (test code = 6690-2) 9.22 4.30-11.10 RBC (test code = 789-8) 4.16 3.93-5.25 HGB (test code = 718-7) 10.1 g/dL 11.6-15.0 L HCT (test code = 4544-3) 32.0 % 35.7-45.2 L MCV (test code = 787-2) 76.9 fL 80.6-95.5 L MCH (test code = 785-6) 24.3 pg 25.9-32.8 L MCHC (test code = 786-4) 31.6 g/dL 31.6-35.1 RDW-SD (test code = 87651-2) 41.7 fL 39.0-49.9 RDW-CV (test code = 788-0) 15.4 % 12.0-15.5 PLT (test code = 777-3) 279 166-358 MPV (test code = 77106-0) 11.0 fL 9.5-12.9 NRBC/100 WBC (test code = 0721362404) 0.0 0.0-10.0 NRBC x10^3 (test code = 6408028204) See_Comment [Automated messa ge] The system which generated this result transmitted reference range: 10*3/?L. The reference range was not used to interpret this result as normal/abnormal. GRAN MAT (NEUT) % (test code = 770-8) 61.1 % IMM GRAN % (test code = 7978752520) 0.80 % LYMPH % (test code = 736-9) 25.6 % MONO % (test code = 5905-5) 10.3 % EOS % (test code = 713-8) 2.0 % BASO % (test code = 706-2) 0.2 % GRAN MAT x10^3(ANC) (test code = 7084135314) 5.64 10*3/uL 1.88-7.09 IMM GRAN x10^3 (test code = 1527802633) 0.07 10*3/uL 0.00-0.06 H LYMPH x10^3 (test code = 731-0) 2.36 10*3/uL 1.32-3.29 MONO x10^3 (test code = 742-7) 0.95 10*3/uL 0.33-0.92 H EOS x10^3 (test code = 711-2) 0.18 10*3/uL 0.03-0.39 BASO x10^3 (test code = 704-7) 0.01-0.07 Lab Interpretation (test code = 38628-2) Abnormal [facility] with Ptyqezpexjtw5607-51-51 08:34:41* Test Item Value Reference Range Interpretation Comme nts WBC (test code = 6690-2) 9.22 4.30-11.10 RBC (test code = 789-8) 4.16 3.93-5.25 HGB (test code = 718-7) 10.1 g/dL 11.6-15.0 L HCT (test code = 4544-3) 32.0 % 35.7-45.2 L MCV (test code = 787-2) 76.9 fL 80.6-95.5 L MCH (test code = 785-6) 24.3 pg 25.9-32.8 L MCHC (test code = 786-4) 31.6 g/dL 31.6-35.1 RDW-SD (test code = 44532-9) 41.7 fL 39.0-49.9 RDW-CV (test code = 788-0) 15.4 % 12.0-15.5 PLT (test code = 777-3) 279 166-358 MPV (test code = 02585-5) 11.0 fL 9.5-12.9 NRBC/100 WBC (test code = 8063275604) 0.0 0.0-10.0 NRBC x10^3 (test code = 2955045655) See_Comment [Automated messa ge] The system which generated this result transmitted reference range: 10*3/?L. The reference range was not used to interpret this result as normal/abnormal. GRAN MAT (NEUT) % (test code = 770-8) 61.1 % IMM GRAN % (test code = 7424279628) 0.80 % LYMPH % (test code = 736-9) 25.6 % MONO % (test code = 5905-5) 10.3 % EOS % (test code = 713-8) 2.0 % BASO % (test code = 706-2) 0.2 % GRAN MAT x10^3(ANC) (test code = 6161998169) 5.64 10*3/uL 1.88-7.09 IMM GRAN x10^3 (test code = 3186865757) 0.07 10*3/uL 0.00-0.06 H LYMPH x10^3 (test code = 731-0) 2.36 10*3/uL 1.32-3.29 MONO x10^3 (test code = 742-7) 0.95 10*3/uL 0.33-0.92 H EOS x10^3 (test code = 711-2) 0.18 10*3/uL 0.03-0.39 BASO x10^3 (test code = 704-7) 0.01-0.07 Lab Interpretation (test code = 70079-7) [facility]normal [facility] - [facility] [id number] 08:32:00 * Test Item Value Reference Range Interpretation Comme nts ABO & RH (test code = 20) A Positive IAT (test code = 1185) Negative [facility] [id number] 08:32:00 * Test Item Value Reference Range Interpretation Comme nts ABO & RH (test code = 20) A Positive IAT (test code = 1185) Negative [facility] W SPECIFIC [id number] 21:00:00* Test Item Value Reference Range Interpretation Comme [...] U APPEAR (test code = 3267) . [facility] PELVIS > 14 [id number] 23:06:48US PELVIS > 14 WEEKSTRANSABDOMINAL/TRANSVAGINAL PELVIC ULTRASOUND, 2ND TRIMESTER HISTORY: 23 years-old; Female; Late entry to care COMPARISON: None TECHNIQUE: The transvaginal exam was explained to the patient in advanceand a watch inspector was present in the room. FINDINGS: Estimated due date is 09/24/2024, corresponds with a gestational age of 363 days. A cephalic presentation of the fetus is identified.Biparietal diameter (BPD): 8.8, correspond with a gestational age of 35weeks 5 daysHead circumference (HC): 31.9 centimeters, corresponds with a gestationalage of 36 0 dayAbdominal circumference (AC): 35.3 cm, corresponds with a gestational ageof 39 weeks 2 daysFemur length (FL): 7.0 cm, corresponds with a gestational age of 36 weeks 2daysHumerus length: 6.4 cm, corresponds with a gestational age of 36 weeks 6daysCorresponding gestational age: 37 weeks 1 dayFetal heart rate: 146 bpmEstimated weight: 3318 grams. Placenta is located anterior fundal.The a mniotic fluid is adequate and measures 15.2 cm. The evaluation of the anatomy was not performed.[facility] MOLECULAR STREP 2024-08-29 21:34:36* Test Item Value Reference Range Interpretation Comme nts POCT Molecular Strep (test c ode = 65145-5) Negative Negative Lab Interpretation (test cod e = 25119-9) Normal [facility] SARS-COV-2 ANTIGEN (BINAX NOW)2024-08-29 21:15:00* Test Item Value Reference Range Interpretation Comme nts POCT SARS-COV-2 ANTIGEN (test code = 58748-2) Not Detected Not Detected, See Comment On board controls acceptable with C Line (test code = 3574) Yes [facility] URINALYSIS W SPECIFIC [id number] 20:57:00* Test Item Value Reference Range Interpretation Comme nts POCT U SP GRAV (test code = 3255) . 1.005-1.025 POCT PH U (test code = 3254) 2+ 5-8 POCT U LEUK EST (test code = 3263) trace Negative - N egative POCT U NIT (test code = 3262) neg Negative - Negati ve POCT U PROT (test code = 3259) trace Negative - Negat priscilla POCT U GLU (test code = 3256) neg Negative - Negati ve POCT U KETONE (test code = 3258) neg Negative - Neg ative POCT U UROBILI (test code = 3260) . 0.2-1 POCT U BILI (test code = 3261) . Negative - Negat priscilla POCT U BLD (test code = 3257) neg Negative - Negati ve POCT U COLOR (test code = 3266) POCT U APPEAR (test code = 3267) [facility] Urinalysis w/o Specific [id number] 19:51:00* Test Item Value Reference Range Interpretation Comme nts POCT PH U (test code = 3254) 5 mg/dl 5-8 POCT U LEUK EST (test code = 3263) trace Negative - Negative POCT U NIT (test code = 3262) neg Negative - Negati ve POCT U PROT (test code = 3259) trace Negative - Negat priscilla POCT U GLU (test code = 3256) neg Negative - Negati ve POCT U KETONE (test code = 3258) + Negative - Neg ative POCT U BLD (test code = 3257) neg Negative - Negati ve [facility] [id number] 19:51:00* Test Item Value Reference Range Interpretation Comme nts POCT PREG (test code = 1605) Positive On board controls acceptable with C Line (test code = 3574) Yes POCT PREG LOT # (test code = 3575) POCT PREG TEST DATE ( test code = 3576) [facility] Cord [id number] 16:40:49* Test Item Value Reference Range Interpretation Comme nts VENOUS BASE EXCESS, CORD (test code = 3760794481) -10.5 mEq/L VENOUS PH, CORD (test code = 3335769199) 7.10 7.25-7.45 L VENOUS PC02, CORD (test code = 2783969942) 68 See_Comment H [Automated me ssage] The system which generated this result transmitted reference range: 27 - 49 mmHg. The reference range was not used to interpret this result as normal/abnormal. VENOUS PO2, CORD (test code = 1673909710) 15 See_Comment L [Automated me ssage] The system which generated this result transmitted reference range: 17 - 41 mmHg. The reference range was not used to interpret this result as normal/abnormal. VENOUS BICARBONATE, CORD (test code = 8049094566) 20 See_Comment [Automa shayna message] The system which generated this result transmitted reference range: 12 - 29 mEq/L. The reference range was not used to interpret this result as normal/abnormal. Lab Interpretation (test code = 27409-1) Abnormal [facility] Cord [id number] 16:40:49* Test Item Value Reference Range Interpretation Comme nts VENOUS BASE EXCESS, CORD (test code = 9269393895) -10.5 mEq/L VENOUS PH, CORD (test code = 6568205892) 7.10 7.25-7.45 L VENOUS PC02, CORD (test code = 9186457960) 68 See_Comment H [Automated me ssage] The system which generated this result transmitted reference range: 27 - 49 mmHg. The reference range was not used to interpret this result as normal/abnormal. VENOUS PO2, CORD (test code = 2696957580) 15 See_Comment L [Automated me ssage] The system which generated this result transmitted reference range: 17 - 41 mmHg. The reference range was not used to interpret this result as normal/abnormal. VENOUS BICARBONATE, CORD (test code = 2110343485) 20 See_Comment [Automa shayna message] The system which generated this result transmitted reference range: 12 - 29 mEq/L. The reference range was not used to interpret this result as normal/abnormal. Lab Interpretation (test code = 68914-7) [facility] [id number] 16:38:24* Test Item Value Reference Range Interpretation Comme nts BASE EXCESS, CORD (test code = 8128849180) -12.2 mEq/L AC PH, CORD (BEAKER) (test code = 0680195626) 7.04 7.18-7.38 L PC02, CORD (test code = 7370297552) 74 See_Comment H [Automated messa ge] The system which generated this result transmitted reference range: 32 - 66 mmHg. The reference range was not used to interpret this result as normal/abnormal. PO2, CORD (test code = 9673676397) 10 See_Comment [Automated messa ge] The system which generated this result transmitted reference range: 10 - 30 mmHg. The reference range was not used to interpret this result as normal/abnormal. BICARBONATE, CORD (test code = 2498681363) 20 See_Comment [Automated me ssage] The system which generated this result transmitted reference range: 17 - 27 mEq/L. The reference range was not used to interpret this result as normal/abnormal. Lab Interpretation (test code = 60376-5) [facility]normal [facility] [id number] 16:38:24* Test Item Value Reference Range Interpretation Comme nts BASE EXCESS, CORD (test code = 4566454675) -12.2 mEq/L AC PH, CORD (BEAKER) (test code = 2727685544) 7.04 7.18-7.38 L PC02, CORD (test code = 2280731866) 74 See_Comment H [Automated messa ge] The system which generated this result transmitted reference range: 32 - 66 mmHg. The reference range was not used to interpret this result as normal/abnormal. PO2, CORD (test code = 4916828350) 10 See_Comment [Automated messa ge] The system which generated this result transmitted reference range: 10 - 30 mmHg. The reference range was not used to interpret this result as normal/abnormal. BICARBONATE, CORD (test code = 9055413941) 20 See_Comment [Automated me ssage] The system which generated this result transmitted reference range: 17 - 27 mEq/L. The reference range was not used to interpret this result as normal/abnormal. Lab Interpretation (test code = 76101-2) Abnormal [facility] URINALYSIS W SPECIFIC [id number] 17:42:00* Test Item Value Reference Range Interpretation [...] POCT U APPEAR (test code = 3267) [facility] URINALYSIS W SPECIFIC [id number] 15:56:00* Test Item Value Reference Range Interpretation [...] U APPEAR (test code = 3267) . [facility] URINALYSIS W SPECIFIC [id number] 15:56:00* Test Item Value Reference Range Interpretation [...] U APPEAR (test code = 3267) . [facility] URINALYSIS W SPECIFIC [id number] 15:56:00* Test Item Value Reference Range Interpretation [...] U APPEAR (test code = 3267) . [facility] URINALYSIS W SPECIFIC [id number] 15:56:00* Test Item Value Reference Range Interpretation [...] U APPEAR (test code = 3267) . [facility] URINALYSIS W SPECIFIC [id number] 15:56:00* Test Item Value Reference Range Interpretation [...] U APPEAR (test code = 3267) . [facility] URINALYSIS W SPECIFIC [id number] 15:56:00* Test Item Value Reference Range Interpretation [...] U APPEAR (test code = 3267) . [facility] URINALYSIS W SPECIFIC [id number] 15:59:00* Test Item Value Reference Range Interpretation [...] U APPEAR (test code = 3267) . [facility] URINALYSIS W SPECIFIC [id number] 15:59:00* Test Item Value Reference Range Interpretation [...] U APPEAR (test code = 3267) . [facility] URINALYSIS W SPECIFIC [id number] 15:59:00* Test Item Value Reference Range Interpretation [...] U APPEAR (test code = 3267) . [facility] URINALYSIS W SPECIFIC [id number] 15:59:00* Test Item Value Reference Range Interpretation [...] U APPEAR (test code = 3267) . [facility] URINALYSIS W SPECIFIC [id number] 16:48:00* Test Item Value Reference Range Interpretation [...] POCT U APPEAR (test code = 3267) [facility] URINALYSIS W SPECIFIC [id number] 15:03:00* Test Item Value Reference Range Interpretation [...] POCT U APPEAR (test code = 3267) [facility] URINALYSIS W SPECIFIC [id number] 15:03:00* Test Item Value Reference Range Interpretation [...] POCT U APPEAR (test code = 3267) [facility] URINALYSIS W SPECIFIC [id number] 15:03:00* Test Item Value Reference Range Interpretation [...] POCT U APPEAR (test code = 3267) [facility] URINALYSIS W/O SPECIFIC [id number] 15:26:00* Test Item Value Reference Range Interpretation [...] = 3257) negative Negative - Negati ve [facility] [id number] 14:41:00* Test Item Value Reference Range Interpretation Comme nts POCT PREG (test code = 1605) Positive On board controls acceptable with C Line (test code = 3574) Yes POCT PREG LOT # (test code = 3575) POCT PREG TEST DATE ( test code = 3576) [facility]/O SPECIFIC [id number] 14:40:00* Test Item Value Reference Range Interpretation [...] = 3257) negative Negative - Negati ve [facility] History and Physical Notes Date/Time Note Provider Source 2024-09-11 02:00:56 ANTEPARTUM HISTORY & PHYSICAL IDENTIFYING DATA Manuela Nunez is 23 year old, /White, 38w1d, female with IWONA 09/24/2024, by Last Menstrual Period. : 2000 Primary Care Physician: Rosa Maria Baez Hospital Day: 1 CHIEF COMPLAINT contractions HISTORY OF PRESENT ILLNESS 23 year old @38w1d presents with painful regular contractions. Denies n/v/d. Denies Vb or LOF. PNC: Previous CS x 3, desires for permanent sterilization (MAP signed 08/28/24) care with [facility] PAST OBSTETRIC HISTORY OB History Para Term AB Living 4 3 2 1 4 SAB IAB Ectopic Multiple Live Births 1 4 # Outcome Date GA Lbr Luís/2nd Weight Sex Type Anes PTL Lv 4 Current 3 Term 12/19/22 39w0d 3450 g F , L CSE N ATMI 2 Term 07/20/19 38w0d 3430 g M , L TAMI 1A 06/12/18 34w0d 2608 g M , L TAMI 1B 06/12/18 34w0d 2778 g M , L TAMI PAST MEDICAL HISTORY Problem list: Patient Active Problem List Diagnosis Date Noted Uterine contractions during 09/11/2024 38 weeks gestation of 09/11/2024 Hematemesis with nausea 08/30/2024 Late care affecting in third trimester 08/29/2024 Anemia of mother in , antepartum 08/24/2024 Tetanus, diphtheria, and acellular pertussis (Tdap) vaccination declined 08/23/2024 Obesity in 12/19/2022 Papanicolaou smear of cervix with atypical squamous cells cannot exclude high grade squamous intraepithelial lesion (ASC-H) 09/08/2022 Supervision of high-risk with insufficient care 08/09/2022 History of delivery 08/09/2022 History of section 08/09/2022 Multiparity 08/09/2022 Operations: Past Surgical History: Procedure Laterality Date SECTION SECTION N/A 12/19/2022 Surgeon: Cyndy Mcneal MD; Location: LABOR AND DELIVERY OR LOCATION[facility] Prior surgeries at outside hospitals: none Past Medical History: Diagnosis Date Anemia CURRENT HEALTH STATUS Medications: Current Facility-Administered Medications Medication Dose Route Frequency Last Rate Last Admin carboprost (HEMABATE) injection 250 mcg 250 mcg Intramuscular Q2HPRN D5W-LR IV infusion 1,000 mL 1,000 mL IV Infusion TITRATE 75 mL/hr at 09/11/24 0153 1,000 mL at 09/11/24 015 lactated ringers IV infusion 250 mL 250 mL IV Infusion PRN - SEE INSTRUCTIONS lidocaine 1% (PF) (XYLOCAINE) injection 0.3 mL 0.3 mL Infiltration PRN - SEE INSTRUCTIONS lidocaine 1% (XYLOCAINE) 10 mg/mL (1 %) injection 50 mL 50 mL Infiltration PRN - SEE INSTRUCTIONS methylergonovine (METHERGINE) injection 0.2 mg 0.2 mg Intramuscular Q4HPRN miSOPROStoL (CYTOTEC) tablet 200 mcg 200 mcg Rectal PRN oxytocin (PITOCIN) 30 units in NS 500 mL IV infusion 600 mL/hr IV Infusion PRN sodium citrate-citric acid (BICITRA) 500-334 mg/5 mL solution 30 mL 30 mL Oral PRE-PROCEDURE ONCE tranexamic acid in (ISO-OS) sodium chloride 1,000 mg/100 mL (10 mg/mL) IV 1,000 mg 1,000 mg IV Piggyback PRN Allergies and drug reactions: Patient has no known allergies. HOME MEDICATIONS Medications Prior to Admission Medication Sig Dispense Refill Last Dose famotidine (PEPCID) 20 mg tablet Take 1 tablet by mouth in the morning and 1 tablet in the evening. 60 tablet 1 ascorbic acid, vitamin C, 500 mg tablet Take 1 tablet by mouth in the morning and 1 tablet at noon and 1 tablet in the evening. 90 tablet 2 ferrous sulfate 325 mg (65 mg iron) tablet Take 1 tablet by mouth in the morning and 1 tablet in the evening. 60 tablet 3 PNV 67-iron ps-folate no.1-dha (VITAFOL ULTRA) 29 mg iron- 1 mg-200 mg Cap Take 1 Each by mouth in the morning. 30 capsule 8 vitamin w/FA tablet Take 1 tablet by mouth in the morning. 100 tablet 3 Not Taking Last taken: none SOCIAL HISTORY Tobacco History: Social History Tobacco Use Smoking Status Never Smokeless Tobacco Never Drug History: Social History Substance and Sexual Activity Drug Use Not Currently Alcohol History: Social History Substance and Sexual Activity Alcohol Use Not Currently FAMILY HISTORY Family History Problem Relation Age of Onset Depression Mother Asthma Mother Arthritis Mother No Significant Medical Problems Father Diabetes Maternal Grandmother Depression Maternal Grandmother Arthritis Maternal Grandmother Diabetes Maternal Grandfather Depression Maternal Grandfather Arthritis Maternal Grandfather REVIEW OF SYSTEMS General: negative Constitutional: negative Eyes: negative ENT/Mouth: negative Cardiovascular: negative Respiratory: negative Gastrointestinal:pain Genitourinary: negative Musculoskeletal: negative Skin/breast: negative Neurological: negative Psychiatric: negative Endocrine: negative Hemat/Lymph: negative Allergic/Immuno:none VITAL SIGNS BP: (130-137)/(85-87) Temp: [36.7 ?C (98.1 ?F)] Temp source: Oral (09/11 109) Pulse: [79-96] Resp: -- SpO2: [100 %] Height: [162.6 cm (5' 4")] Weight: [76.9 kg (169 lb 8 oz)] BMI (calculated): [29.09] PHYSICAL EXAMINATIONS General: well-developed, well-nourished Lungs: clear to auscultation bilaterally Cardiology: regular rate and rhythm Abdomen: tenderness - normal : OB pelvic exam performed? Yes. Dilation - 4 cm Effacement - 90% % Station - -3 Presentation (fetus 1) - vertex Extremities: no clubbing, cyanosis, or edema Neuro: cranial nerves II through XII grossly intact; sensation grossly intact; muscle strength 5 out of 5 in all four extremities + bloody show present REVIEW OF LABORATORY, PATHOLOGY, AND RADIOLOGY DATA Lab results: CBC BMP PT/INR WBC (10*3/?L) Date Value 08/30/2024 13.15 (H) NA (mmol/L) Date Value 08/30/2024 133 (L) No results found for: "PT" RBC (10*6/?L) Date Value 08/30/2024 4.18 K (mmol/L) Date Value 08/30/2024 3.9 No results found for: "PTINR" PLT (10*3/?L) Date Value 08/30/2024 264 CALCIUM (mg/dL) Date Value 08/30/2024 8.9 HGB (g/dL) Date Value 08/30/2024 10.2 (L) CL (mmol/L) Date Value 08/30/2024 105 aPTT HCT (%) Date Value 08/30/2024 32.3 (L) BUN (mg/dL) Date Value 08/30/2024 9 No results found for: "APTTPAT" CREATININE (mg/dL) Date Value 08/30/2024 0.46 (L) GLUCOSE (mg/dL) Date Value 08/30/2024 70 CO2 TOTAL (mmol/L) Date Value 08/30/2024 21 (L) Type & Screen Rubella Varicella ABO & RH (no units) Date Value 08/30/2024 A POSITIVE Rubella screen IgG (no units) Date Value 08/23/2024 Positive No results found for: "VZVG" No results found for: "TSABINT" Hep B HIV Syphilis No results found for: "HBS" No results found for: "HIV" No results found for: "SYPG" Group B Strep Chlamydia No results found for: "CGBS" C. trachomatis Nucleic Acid (no units) Date Value 08/29/2024 Negative X-ray results: none Placenta Accreta Screening Prior ? : Yes Prior Uterine Surgery?: Yes Placenta low lying/previa in current ? : No Screening outcome: A positive screening outcome indicates a history of prior delivery or prior uterine surgery, AND the presence of either a placenta low lying/previa or ultrasound suspicion of PASD in the current . Negative screening. DELIVERY PLAN RCS + salpingectomy HEART RATE [address] [place]: q2 min ASSESSMENT AND PLAN 23 year old @38w1d presents in active labor --Previous CS x3 in active labor Desires for repeat CS Consent obtained Ancef --Desires for sterilization Consented for BL salpingectomy --Fetus Reassuring Porsha Shepherd MD [facility] 2024-08-30 17:30:00 TRIAGE HISTORY & PHYSICAL IDENTIFYING DATA Manuela Nunez is 23 year old, /White, 36w3d, female with IWONA 09/24/2024, by Last Menstrual Period. : 2000 Primary Care Physician: Rosa Maria Baez CHIEF COMPLAINT Bloody vomit HISTORY OF PRESENT ILLNESS Manuela Nunez is a 23 year old female at 36w3d presenting with complaints of bloody vomit since Thursday. Patient reports drinking orange juice on Thursday and began to feel nauseous, causing her to vomit. Patient reports seeing red bloody streaks in vomit. Nausea, vomiting with red bloody streaks has been ongoing since. Today, patient reports has vomited about 4-5 times, accompanied with acid reflux. Patient reports has been unable to eat or drink today, can't keep anything down. Patient denies cough, abdominal pain or diarrhea. Reports good FM. Denies urinary symptoms, vaginal bleeding, LOF, or regular contractions. Denies symptoms of PreE. PAST OBSTETRIC HISTORY OB History Para Term AB Living 4 3 2 1 4 SAB IAB Ectopic Multiple Live Births 1 4 # Outcome Date GA Lbr Luís/2nd Weight Sex Type Anes PTL Lv 4 Current 3 Term 12/19/22 39w0d 3450 g F , L CSE N TAMI 2 Term 07/20/19 38w0d 3430 g M , L TAMI 1A 06/12/18 34w0d 2608 g M , L TAMI 1B 06/12/18 34w0d 2778 g M , L TAMI PAST MEDICAL HISTORY Problem list: Patient Active Problem List Diagnosis Date Noted 36 weeks gestation of 08/30/2024 Hematemesis with nausea 08/30/2024 Late care affecting in third trimester 08/29/2024 Anemia of mother in , antepartum 08/24/2024 Tetanus, diphtheria, and acellular pertussis (Tdap) vaccination declined 08/23/2024 Obesity in 12/19/2022 Papanicolaou smear of cervix with atypical squamous cells cannot exclude high grade squamous intraepithelial lesion (ASC-H) 09/08/2022 Supervision of high-risk with insufficient care 08/09/2022 History of delivery 08/09/2022 History of section 08/09/2022 Multiparity 08/09/2022 Operations: Past Surgical History: Procedure Laterality Date SECTION SECTION N/A 12/19/2022 Surgeon: Cyndy Mcneal MD; Location: [facility] Past Medical History: Diagnosis Date Anemia CURRENT HEALTH STATUS Medications: No current facility-administered medications for this encounter. Allergies and drug reactions: Patient has no known allergies. HOME MEDICATIONS Medications Prior to Admission Medication Sig Dispense Refill Last Dose famotidine (PEPCID) 20 mg tablet Take 1 tablet by mouth in the morning and 1 tablet in the evening. 60 tablet 1 ascorbic acid, vitamin C, 500 mg tablet Take 1 tablet by mouth in the morning and 1 tablet at noon and 1 tablet in the evening. 90 tablet 2 ferrous sulfate 325 mg (65 mg iron) tablet Take 1 tablet by mouth in the morning and 1 tablet in the evening. 60 tablet 3 PNV 67-iron ps-folate no.1-dha (VITAFOL ULTRA) 29 mg iron- 1 mg-200 mg Cap Take 1 Each by mouth in the morning. 30 capsule 8 vitamin w/FA tablet Take 1 tablet by mouth in the morning. 100 tablet 3 Not Taking SOCIAL HISTORY Tobacco History: Social History Tobacco Use Smoking Status Never Smokeless Tobacco Never Drug History: Social History Substance and Sexual Activity Drug Use Not Currently Alcohol History: Social History Substance and Sexual Activity Alcohol Use Not Currently FAMILY HISTORY Family History Problem Relation Age of Onset Depression Mother Asthma Mother Arthritis Mother No Significant Medical Problems Father Diabetes Maternal Grandmother Depression Maternal Grandmother Arthritis Maternal Grandmother Diabetes Maternal Grandfather Depression Maternal Grandfather Arthritis Maternal Grandfather REVIEW OF SYSTEMS General: negative Constitutional: negative Eyes: negative ENT/Mouth: negative Cardiovascular: negative Respiratory: negative Gastrointestinal: nausea, vomiting, acid reflux Genitourinary: negative Musculoskeletal: negative Skin/breast: negative Neurological: negative Psychiatric: negative Endocrine: negative Hemat/Lymph: negative Allergic/Immuno:none VITAL SIGNS BP: (97-125)/(62-85) Temp: [36.3 ?C (97.3 ?F)-36.4 ?C (97.5 ?F)] Temp source: Oral (08/30 1400) Pulse: [82-95] Resp: [16-19] SpO2: [99 %-100 %] Height: [157.5 cm (5' 2")] Weight: [77.6 kg (171 lb)] BMI (calculated): [31.28] PHYSICAL EXAMINATIONS General: patient alert and in no acute distress HEENT: symmetric, negative for masses Lungs: unlabored breathing Cardiology: peripheral pulses intact and regular Abdomen: soft, non-tender, non-distended, no liver, spleen or abnormal masses palpated and Gravid Extremities: no clubbing, cyanosis, or edema Neuro: patient moving all extremities, no facial droop : SVE: fingertip/0/float. REVIEW OF LABORATORY, PATHOLOGY, AND RADIOLOGY DATA Lab results: Type & Screen HIV Hep B Syphilis Chlamydia ABO & RH Date Value Ref Range Status 08/30/2024 A POSITIVE Final No results found for: "HIVMULTIPLEX" No components found for: "HBSHBSAG" Syphilis IgG/IgM Date Value Ref Range Status 08/23/2024 Non-reactive Non-reactive Final C. trachomatis Nucleic Acid Date Value Ref Range Status 08/29/2024 Negative Negative Final IAT Date Value Ref Range Status 08/30/2024 Negative Final Varicella Rubella Glucose Group B Strep CBC VZV IgG antibody Date Value Ref Range Status 08/23/2024 Positive Negative Final Rubella screen IgG Date Value Ref Range Status 08/23/2024 Positive Negative Final GLUC 1 HR Date Value Ref Range Status 08/23/2024 95 (L) 120 - 170 mg/dL Final No results found for: "CGBS" HGB Date Value Ref Range Status 08/30/2024 10.2 (L) 11.6 - 15.0 g/dL Final HCT Date Value Ref Range Status 08/30/2024 32.3 (L) 35.7 - 45.2 % Final PLT Date Value Ref Range Status 08/30/2024 264 166 - 358 10*3/?L Final Active Hospital Problems Diagnosis Date Noted 36 weeks gestation of 08/30/2024 Hematemesis with nausea 08/30/2024 Late care affecting in third trimester 08/29/2024 Anemia of mother in , antepartum 08/24/2024 Supervision of high-risk with insufficient care 08/09/2022 Entered care at 35 weeks History of delivery 08/09/2022 With twin History of section 08/09/2022 x3 Resolved Hospital Problems No resolved problems to display. Present on Admission: Supervision of high-risk with insufficient care Late care affecting in third trimester History of delivery History of section Anemia of mother in , antepartum 36 weeks gestation of Hematemesis with nausea ASSESSMENT AND PLAN Manuela Nunez is a 23 year old at 36w3d who presents with bloody vomit. Hematemesis - Reports nausea/vomiting since Thursday due to orange juice, has been ongoing since, seeing red bloody streaks in vomit. - Reports has vomited about 4-5 times today with red bloody streaks, accompanied with acid reflux. Unable to eat or drink, can't keep anything down. Denies cough, abdominal pain or diarrhea. - Was seen in clinic yesterday, was started on Famotidine 20mg BID but has not picked up from pharmacy. - Reports good FM. Denies urinary symptoms, vaginal bleeding, LOF, or regular contractions. Denies symptoms of PreE.. - FHT Cat 1 - [place]: ctx every 2-3 min - SVE: fingertip/0/float. - Urine dip: +3 ketones, dark roland - Plan: 1L LR given. UA, CBC, CMP, amylase, lipase, and other labs sent. Reglan 10mg, GI cocktail given. Clear liquid diet ordered to advance diet once symptoms resolved. Prev C/s Multiparity H/o delivery - C/s twins 2017, repeat C/s 2022. MPDPS - Desires permanent sterilization - Consent signed: 08/23/24 Anemia - Hgb 9.4 on 08/23/24 - On iron supplementation Antepartum course reviewed Late entry to care - 1 h wnl, sero neg, RI, VZVI, A+/neg, GBS pending result, Pap ASCUS 2021, will need PP - H/H, plt: 9.4 / 29.1, 257 on 08/23/24 - PP contraception: BTL - [facility], late entry at 35w3d. Fetus - Presentation on admission: cephalic on BSUS - No OB US on file. - Plan: US >14 weeks ordered. Placenta Accreta Screening Prior ? : Yes Prior Uterine Surgery?: Yes Placenta low lying/previa in current ? : No Screening outcome: Negative screening. PLAN: UA abn (see results). ALK phos 205, NA 133 on CMP. Amylase, lipase wnl. 1L LR bolus given, 125ml D5LR maintenance continued. Reglan 10mg, GI cocktail given. Patient has drank 2 jugs of water with no complaints of nausea. Nausea resolved, no episodes of vomiting. Patient was instructed in regard to clear liquid diet. However, regular food was provided at 3:00PM. Patient instructed to remain NPO. US >14 weeks performed, see results below. Patient continues having contractions every 3-[address] [place] despite interventions. SVE: fingertip/0/float. 2hr repeat SVE: unchanged. Extensively discussed risks of uterine rupture with patient due to history of prev x3 C/s and patient continuing to contract every 3-4 min. Extensively discussed importance of continuing to monitor contraction pattern until they become less frequent/resolve. Patient agrees to remain in Triage for prolonged monitoring. Continue EFM/[place] monitoring in Triage. Patient checked out to MD Shepherd. US >14 weeks: Corresponding gestational age: 37 weeks 1 day. heart rate: 146 bpm. Estimated weight: 3318 grams. Placenta is located anterior fundal. The amniotic fluid is adequate and measures 15.2 cm. Cephalic presentation of fetus with estimated gestational age of 37 weeks 1 day. Trudy Sheffield MSN, NET SOLUTIONS ARCHITECT, OIL PIPE INSPECTOR HELPER-C Informed consent discussed with the patient, including: condition, proposed care, treatments and services, alternative forms of treatment, and risks of no treatment. Details discussed around the procedures to be used, and the risks and hazards involved, potential benefits, and side effects of the patient s proposed care, treatment, and services; the likelihood of the patient achieving his or her goals; and any potential problems that might occur during recuperation. Reasonable alternative also discussed with the patient s proposed care, treatment, and services. The discussion encompasses risks, benefits, and side effects related to the alternative and risks related to not receiving the proposed care, treatment, and services. ACTING MACHINE OPERATOR/TENDER Associated attestation - Porsha Shepherd MD - 08/30/2024 7:30 PM COMPACTING MACHINE OPERATOR/TENDER I reviewed and agree with the plan of care as documented by the LESLEE: Patient was seen. After completing IV fluids and antiemetics patient denies contractions and nausea/vomiting completely resolved. Pt states ready for discharge. Reviewed strict labor warnings and if contractions return to seek care blu. [facility]
[2024-10-22] MEDS ORDERED: NA CHLORIDE 0.9% 500 ML ONE (23:20)
[2024-10-22] MEDS ORDERED: ACETAMINOPHEN 500 MG TAB ONE (23:20)
[2024-10-22 23:35] LABS: Specific Gravity 1.012 (1.005-1.030); Sqamous Epithelial <5 /HPF (None Seen); Urine Bacteria 20-50 /HPF (<20); Urine Bilirubin NEGATIVE (Negative); Urine Blood 3+ (OVER) (Negative); Urine Clarity Extremely Turbid (Clear); Urine Color Light-Orange (Yellow); Urine Crystals Unidentified Few /HPF (None Seen); Urine Culture Reflex Order REFLEXED; Urine Glucose NEGATIVE (Negative); Urine Ketones NEGATIVE (Negative); Urine Micro Reflex YN NO BILL MICROSCOPIC; Urine Mucus 1+ /HPF (None Seen); Urine Nitrite NEGATIVE (Negative); Urine Protein 2+ (Negative); Urine Urobilinogen Normal (Normal); Urine WBC >50 /HPF (<5); Urine WBC Clump Moderate /HPF (None Seen); Urine pH 5.5 (5.0-7.0)
[2024-10-22 23:36] LABS: Specific Gravity 1.012 (1.005-1.030)
[2024-10-22 23:37] LABS: Anion Gap 12.1 mEq/L (5.0-15.0); Potassium 3.1 mEq/L (3.5-5.1)
[2024-10-22 23:50] LABS: Absolute Lymphocytes (CBC) 0.7 K/uL (0.7-4.9); Absolute Monocytes 1.3 K/uL (0.1-1.3); Absolute Neutrophil 9.7 K/uL (1.8-8.0); Basophils % 0.1 % (0-1.3); Eosinophils % 0.3 % (0-4.4); Hemoglobin 9.6 g/dL (12.0-15.0); Lymphocytes % 5.8 % (15.3-44.8); MCH 23.7 pg (27.0-35.0); MCV 74.2 fL (80-100); MPV 8.1 fL (7.6-11.3); Monocytes % 10.8 % (3.3-12.3); Platelets 214 thou/uL (152-406); RBC Red Blood Cell Count 4.04 M/uL (3.86-4.86); Red Cell Distribution Width 20.3 % (12.1-15.2)
--- NOTE | 2024-10-23 00:05 | EDPHYS ---
Physician Documentation [facility] Name: Maria G Broussard Age: 24 yrs Sex: Female : 2000 Arrival Date: 10/22/2024 Time: 22:55 Bed 8 Private MD: ED Physician Deny Gorman HPI: 10/22 23:12 This 24 yrs old Black Female presents to ER via Ambulatory with complaints of Fever, ec2 Urine discoloration/odor. 23:12 Patient arrives today for evaluation of fever and dysuria. No cough or cold symptoms, ec2 no abdominal pain, no shortness of breath. . 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 - Infectious Disease History:: Denies. - Social history:: Smoking status: Patient denies any tobacco usage or history of. ROS: 10/22 23:13 Constitutional: as per hpi ec2 Exam: 23:13 Constitutional: GEN: NAD Head: atraumatic Eyes: EOMI Ears: External ears are ec2 normal. CV: Tachycardia LUNGS: no respiratory distress ABD: non-distended, soft, nontender, not guarding, not rigid SKIN: no evidence of rashes MSK: no evidence of trauma Vital Signs: 23:09 BP 116 / 74; Pulse 131; Resp 18; Temp 101.9; Pulse Ox 100% on R/A; Weight 65.32 kg; br2 Height 5 ft. 1 in. ; Pain 0/10; 23:30 BP 116 / 74; Pulse 116; Resp 18; Temp 101.9; Pulse Ox 100% ; Pain 0/10; bm8 10/23 00:01 Pulse 108; ec2 00:13 BP 120 / 70; Pulse 104; Resp 18; Temp 99.1; Pulse Ox 100% ; Pain 0/10; bm8 10/22 23:09 Body Mass Index 27.21 (65.32 kg, 154.94 cm) br2 10/22 23:09 Pain Scale: Adult br2 23:30 Pain Scale: Adult bm8 00:13 Pain Scale: Adult bm8 Yisel Coma Score: 10/22 23:30 Eye Response: spontaneous(4). Motor Response: obeys commands(6). Verbal Response: bm8 oriented(5). Total: 15. 10/23 00:13 Eye Response: spontaneous(4). Motor Response: obeys commands(6). Verbal Response: bm8 oriented(5). Total: 15. MDM: 10/22 23:06 Medical Screening Exam initiated ec2 23:13 Data reviewed: vital signs, nurses notes. ED course: Patient arrives here for fever and ec2 dysuria. Examination yields tachycardia. Will obtain lab work, urine studies, viral swabs.. 10/23 00:03 ED course: Patient is positive for however patient recently gave less ec2 than 6 weeks ago. Denies any abdominal pain, no lochia or foul-smelling discharge. Abdomen is soft and nontender. I suspect positive is from her recent . I doubt ectopic or recurrent given the recent . 00:03 ED course: Patient is examination with a benign abdomen, negative flanks bilaterally, ec2 doubt pyelonephritis.. 10/22 23:07 Order name: UAM; Complete Time: 00:01 ec2 10/22 23:07 Order name: Test, Urine; Complete Time: 00:01 ec2 10/22 23:07 Order name: CBC with Diff ec2 10/22 23:07 Order name: BMP; Complete Time: 00:01 ec2 10/22 23:56 Order name: Urine Culture EDVA 10/22 23:07 Order name: IV; Complete Time: 23:24 ec2 Administered Medications: 10/22 23:35 Drug: NS 0.9% IV 500 ml 500 ml IV at 1 bolus once; to be given as a bolus over 30 bm8 minutes Volume: 500 ml; Route: IV; Rate: 1 bolus; Site: right antecubital; 10/23 00:12 Follow up: Response: No adverse reaction; IV Status: Completed infusion; IV Intake: bm8 500ml 10/22 23:35 Drug: Acetaminophen PO 1000 mg PO once Route: PO; bm8 10/23 00:12 Follow up: Response: No adverse reaction bm8 00:12 Drug: Amoxicillin-Clavulanate PO 875 mg PO once Route: PO; bm8 00:12 Follow up: Response: No adverse reaction bm8 Disposition Summary: 10/23/24 00:05 Discharge Ordered Notes: Location: Home ec2 Condition: Stable ec2 Diagnosis - UTI/ Urinary tract infection, site not specified ec2 Followup: ec2 - With: Private Physician - When: - Reason: Re-evaluation by your physician Discharge Instructions: - Discharge Summary Sheet ec2 - Urinary Tract Infection, Adult, Coim-qv-Cfct ec2 Forms: - Medication Reconciliation Form ec2 - Antibiotic Education ec2 - Prescription Opioid Use ec2 - Patient Portal Instructions ec2 - Leadership Thank You Letter ec2 Prescriptions: - Augmentin 875-125 mg Oral Tablet - take 1 tablet ORAL route every 12 hours for 10 days; 20 tablet; Refills: 0, ec2 Product Selection Permitted Signatures: Dispatcher [employer] Deny Lloyd MD MD ec2 Chase Drew RN RN bm8
--- NOTE | 2024-10-23 00:05 | ER ---
Nurse's Notes [facility] Name: Maria G Broussard Age: 24 yrs Sex: Female : 2000 Arrival Date: 10/22/2024 Time: 22:55 Bed 8 Private MD: Diagnosis: UTI/ Urinary tract infection, site not specified Presentation: 10/22 23:09 Chief complaint: Patient states: BEGAN HAVING A FEVER, CHILLS PAIN WITH URINATION AND br2 URINE HAS AN ODOR. PT IS S/P 5 WEEKS AGO. HAS HAD F/U 2 WEEKS AGO, INCISION IS HEALED WITH NO SIGNS OF INFECTION OR DRAINAGE. Coronavirus screen: Client denies travel out of the [place] in the last 14 days. Ebola Screen: Patient denies exposure to infectious person. Initial Sepsis Screen: Does the patient meet any 2 criteria? Temp <36.0*C (96.8*F)) or > 38.3*C (100.9*F). HR > 90 bpm. Does the patient have a suspected source of infection? No. Patient's initial sepsis screen is negative. Risk Assessment: Do you want to hurt yourself or someone else? Patient reports no desire to harm self or others. Onset of symptoms was September 20, 2025. 23:09 Method Of Arrival: Ambulatory br2 23:09 Acuity: PETER 3 br2 Triage Assessment: 23:09 General: Appears uncomfortable, Behavior is calm, cooperative. Pain: Denies pain. EENT: br2 No signs and/or symptoms were reported regarding the EENT system. Neuro: Espinoza Agitation-Sedation Scale (RASS): 0 - Alert and Calm Level of Consciousness is awake, alert, obeys commands, Oriented to person, place, time, situation. Cardiovascular: Capillary refill < 3 seconds. Respiratory: Airway is patent Respiratory effort is even, unlabored, Respiratory pattern is regular, symmetrical. GI: No signs and/or symptoms were reported involving the gastrointestinal system. : Reports burning with urination, ODOR TO URINE. DRILL BIT SHARPENER: 10/23 00:14 LMP N/A - Recent , Not bm8 Historical: - Allergies: 00:13 No Known Allergies; bm8 - Home Meds: 00:13 None [Active]; bm8 - PMHx: 00:13 None; bm8 - PSHx: 00:13 section; bm8 - Immunization history:: Adult Immunizations up to date. - Infectious Disease History:: Denies. - Social history:: Smoking status: Patient denies any tobacco usage or history of. Screenin/11 23:30 [facility] ED Fall Risk Assessment (Adult) History of falling in the last 3 months, bm8 including since admission No falls in past 3 months (0 pts) Confusion or Disorientation No (0 pts) Intoxicated or Sedated No (0 pts) Impaired Gait No (0 pts) Mobility Assist Device Used No (0 pt) Altered Elimination No (0 pt) Score/Fall Risk Level 0 - 2 = Low Risk Oriented to surroundings, Maintained a safe environment, Educated pt \T\ family on fall prevention, incl call for assistance when getting out of bed, Assessed \T\ reinforced patient's understanding of fall precautions, Hourly rounding (assess needs \T\ fall precautionary measures) done, Used ambulatory aids as needed (educated on \T\ assisted with), Used gait belt as appropriate. Abuse screen: Denies threats or abuse. Nutritional screening: No deficits noted. Tuberculosis screening: No symptoms or risk factors identified. Assessment: 23:30 General: Appears in no apparent distress. comfortable, Behavior is calm, cooperative, bm8 appropriate for age. Neuro: No deficits noted. Cardiovascular: No deficits noted. Respiratory: No deficits noted. GI: No deficits noted. : Reports burning with urination, pain with urination, urgency, x2 days. 10/23 00:13 Reassessment: Patient appears in no apparent distress at this time. Patient and/or bm8 family updated on plan of care and expected duration. Pain level reassessed. Patient is alert, oriented x 3, equal unlabored respirations, skin warm/dry/pink. Patient states feeling better. Patient states symptoms have improved. Vital Signs: 10/22 23:09 BP 116 / 74; Pulse 131; Resp 18; Temp 101.9; Pulse Ox 100% on R/A; Weight 65.32 kg; br2 Height 5 ft. 1 in. ; Pain 0/10; 23:30 BP 116 / 74; Pulse 116; Resp 18; Temp 101.9; Pulse Ox 100% ; Pain 0/10; bm8 10/23 00:01 Pulse 108; ec2 00:13 BP 120 / 70; Pulse 104; Resp 18; Temp 99.1; Pulse Ox 100% ; Pain 0/10; bm8 10/22 23:09 Body Mass Index 27.21 (65.32 kg, 154.94 cm) br2 10/22 23:09 Pain Scale: Adult br2 23:30 Pain Scale: Adult bm8 00:13 Pain Scale: Adult bm8 Yisel Coma Score: 10/22 23:30 Eye Response: spontaneous(4). Motor Response: obeys commands(6). Verbal Response: bm8 oriented(5). Total: 15. 10/23 00:13 Eye Response: spontaneous(4). Motor Response: obeys commands(6). Verbal Response: bm8 oriented(5). Total: 15. ED Course: 10/22 22:58 Patient arrived in ED. [email or web address] 22:59 Deny Gorman MD is Attending Physician. ec2 23:09 Arm band placed on right wrist. br2 23:12 Triage completed. br2 23:30 Patient has correct armband on for positive identification. Placed in gown. Bed in low bm8 position. Call light in reach. Side rails up X 1. Client placed on continuous cardiac and pulse oximetry monitoring. NIBP monitoring applied. Pulse ox on. NIBP on. Door closed. Noise minimized. Warm blanket given. Pillow given. Verbal reassurance given. Head of bed elevated. 23:30 No provider procedures requiring assistance completed. Initial lab(s) drawn, by , bmAlda sent to lab. Inserted saline lock: 20 gauge in right antecubital area, using aseptic technique. Blood collected. Flushed with 10 mL NS. Patient maintains SpO2 saturation greater than 95% on room air. 23:56 Chase Drew, RN is Primary Nurse. bm8 10/23 00:13 Provided Education on: post er care. bm8 00:13 IV discontinued, intact, bleeding controlled, No redness/swelling at site. Pressure bm8 dressing applied. Administered Medications: 10/22 23:35 Drug: NS 0.9% IV 500 ml 500 ml IV at 1 bolus once; to be given as a bolus over 30 bm8 minutes Volume: 500 ml; Route: IV; Rate: 1 bolus; Site: right antecubital; 10/23 00:12 Follow up: Response: No adverse reaction; IV Status: Completed infusion; IV Intake: bm8 500ml 10/22 23:35 Drug: Acetaminophen PO 1000 mg PO once Route: PO; bm8 10/23 00:12 Follow up: Response: No adverse reaction bm8 00:12 Drug: Amoxicillin-Clavulanate PO 875 mg PO once Route: PO; bm8 00:12 Follow up: Response: No adverse reaction bm8 Medication: 10/22 23:30 VIS not applicable for this client. bm8 Intake: 10/23 00:12 IV: 500ml; Total: 500ml. bm8 Outcome: 00:05 Discharge ordered by . ec2 00:13 Discharged to home ambulatory, bm8 00:13 Condition: stable 00:13 Discharge instructions given to patient, Instructed on discharge instructions, follow up and referral plans. no drinking with medication, no driving heavy equipment, medication usage, safety practices, Demonstrated understanding of instructions, follow-up care, medications, Prescriptions given X 1, 00:15 Patient left the ED. bm8 Addendum: 10/26/2024 07:13 Addendum: Culture Results: Positive urine culture. No further action required. Bacteria e b sensitive to prescribed antibiotic. Signatures: Saba Hester Jennifer [email or web address] Deny Gorman MD MD ec2 Chase Drew RN RN bm8 Lorraine Haskins RN RN br2
[2024-10-23] MEDS ORDERED: AMOX/K CLAV 875 MG TAB ONE (00:07)
[2024-10-23 01:44] LABS: Anisocytosis 1+; Blood Morphology Comment NOTED (NOT SEEN); Platelet Estimate ADEQ; White Blood Cell Scan OK (OK)
[2024-10-25 15:44] VITALS: BP 120/70; TEMP 99.1; O2SAT 100
== END 2024-10-23 00:15 | disposition home or self-care (01) ==
LOC: ER 22:55
DX: N39.0 Urinary tract infection, site not specified (principal)
CPT/HCPCS: 87088; 85025; 81001; 87086; 80048; 36415; 81025; 87077; 87186; 96360; 99284; J7040